=== PATIENT | male | born 1940 | race Caucasian/White ===

== ENCOUNTER 2024-10-17 13:29 | Inpatient (IN) | payer MEDICARE, SELFPAY ==
[2024-10-17] VITALS (10 sets, daily range): BP systolic 119–136; BP diastolic 63–75; BMI 34.0; BMI 32.9
[2024-10-17 11:02] LABS: % Basophils 0.3 % (0-2); % Eosinophils 0.7 % (0-6); % Immature Granulocytes 0.5 % (0-0.5); % Lymphocytes 19.7 % (20.5-51.1); % Monocytes 9.2 % (1.7-9.3); % Neutrophils 69.6 % (42.2-75.2); Absolute Eosinophils 0.1 10^3/uL (0-0.7); Absolute Immature Granulocytes 0.1 10^3/uL (0-0.05); Absolute Lymphocytes 2.1 10^3/uL (1.2-3.4); Absolute Neutrophils 7.4 10^3/uL (1.4-6.5); Hematocrit 37.6 % (39.0-52.0); Hemoglobin 12.7 g/dL (13.0-18.0); Mean Corp Hgb Conc. 33.8 g/dL (33.0-37.0); Mean Corpuscular Volume 88.7 fL (80.0-94.0); Mean Platelet Volume 9.2 fL (7.4-10.4); Nucleated Red Blood Cells % 0 % (-); Platelet Count 157 10^3/uL (130-400); Red Blood Cell Count 4.24 10^6/uL (4.70-6.10); Red Cell Dist. Width 13.6 % (11.5-14.5); White Blood Cell Count 10.6 10^3/uL (4.8-10.8)
[2024-10-17 11:13] LABS: ALT (SGPT) 22 U/L (0-50); AST (SGOT) 25 U/L (17-59); Alkaline Phosphatase 101 U/L (38-126); Blood Urea Nitrogen 26 mg/dl (9-20); Calcium 8.8 mg/dl (8.4-10.2); Carbon Dioxide 24 mmol/L (22-30); Chloride 105 mmol/L (98-107); Estimated Creatinine Clearance 34 ml/min; Glucose 174 mg/dl (70-99); Potassium 4.3 mmol/L (3.5-5.1); Sodium 139 mmol/L (135-145); Total Bilirubin 1.7 mg/dl (0.2-1.3); Total Protein 6.2 g/dl (6.3-8.2); eGFR 37.12
[2024-10-17 11:31] LABS: INR 1.05
[2024-10-17 11:34] LABS: Troponin I 0.042 ng/ml
--- NOTE | 2024-10-17 11:57 | ED.GENMED ---
History of Present Illness
General
Chief Complaint: Chest Pain
Source: patient and ambulance crew (Medics add that they gave a dose of nitroglycerin.)
Time Seen by Provider: 10/17/24 10:45
History of Present Illness
History of Present Illness:
84-year-old male who presents after he developed chest discomfort and shortness of breath while walking angina. Patient states over the last week has been short of breath when he walks. He reports a tightness across his upper chest that is now
resolved after getting nitroglycerin by EMS. He has no cardiac history. EMS did find him with some EKG changes. Symptoms again have resolved and he feels much better. He admits he also has been dealing with hematuria through his urologist. No
palpitations. No leg swelling. Patient was given aspirin by EMS
Past History
Past History
ED Past Medical History: HTN and Hypercholesterolemia
Phy Exam
Physical Exam
Physical Exam:
CONSTITUTIONAL Patient alert and oriented to person, place and time. Well-appearing. Vital signs reviewed.
HEAD atraumatic, normocephalic.
EYES eyelids normal to inspection, Extraocular muscles intact, Conjunctiva normal, Sclera normal.
NECK normal range of motion, Trachea midline, no jugular venous distention.
RESPIRATORY CHEST No respiratory distress noted, Chest expansion equal, Bilateral breath sounds clear.
CARDIOVASCULAR regular rate and rhythm, Heart sounds normal.
ABDOMEN abdomen nontender, Bowel sounds normal. No distention.
BACK normal inspection, no obvious deformities
UPPER EXTREMITY range of motion normal, Motor strength normal, no cyanosis, no edema.
LOWER EXTREMITY range of motion normal, Motor strength normal, no cyanosis, no edema.
NEURO Speech normal, No focal motor deficits, Hampton coma scale 15, Memory normal, Cranial Nerves intact to screening exam.
SKIN skin warm, dry, and normal in color.
Scores
Heart Score for Chest Pain Patients
STEMI patient?: No
History: Highly Suspicious
ECG: Significant ST-Depression
Age: >/= 65 years
Risk Factors: 1 or 2 Risk Factors
Troponin: >1 - <3 x Normal Limit
Heart Score for Chest Pain Patients: 8
Heart Score Risk: 72.7 % MACE over next 6 weeks
Course
Orders/Labs/Results
Orders:
Orders
10/17/24 10:45
Electrocardiogram (*1) Urgent
Reason for Study: Chest Pain
EKG- Treatment ONCE
10/17/24 10:50
Complete Blood Count/With Diff Urgent
Comprehensive Metabolic Panel Urgent
NT-proBNP Urgent
Comment: ADDON
PTT Urgent
Prothrombin Time Urgent
Troponin I Urgent
10/17/24 10:56
CR Chest - 2 Views Urgent
Comment:
Reason For Exam: sob, cp
10/17/24 10:59
Add On- LAB Urgent
Tests Added?: bnp
10/17/24 11:51
Heparin 4,000 units IV NOW STA
10/17/24 11:[address] Non Medication Order As Directed
Physician Order: PTT 6 hours after initial start of Heparin infusion
Above order entered?: Yes
10/17/24 12:00
Heparin 41771 Units/250 ml 25,000 units in 250 ml IV PER PROTOCOL
Weight to be used for heparin protocol in kilograms (kg):: 95.5
Protocol:: Cardiac Tx/Acute Coronary
PTT Goal Range to be used:: PTT 73 to 111 seconds
Order type:: Initial
INITIAL Infusion Dose (UNITS/KG/hr) & then follow protocol:: 12 units/kg/hr
Infusion Dose in UNITS/hr & then follow protocol (UNITS/hr):: 1,000
INFUSION RATE in mL/hr & then follow protocol (mL/hr):: 10
PTT less than or equal to 64 seconds:: Increase rate by 200 units/hr (+ 2 mL/hr)
PTT 64.1 to 72.9 seconds:: Increase rate by 100 units/hr (+ 1 mL/hr)
PTT 73 to 111 seconds:: Target Range. No change in rate.
PTT 111.1 to 130.9 seconds:: Decrease rate by 100 units/hr (- 1 mL/hr)
PTT 131 to 199.9 seconds:: HOLD for 1 hr. Then decrease rate by 200 units/hr (- 2 mL/hr)
PTT greater than or equal to 200 seconds:: HOLD for 2 hrs & Notify Provider. Then decrease by 200 units/hr (-
2 mL/hr)
Lab follow-up:: Each change, PTT q6h until 2 consecutive are therapeutic. Then PTT
daily.
Nitroglycerin Ointment [Nitro-Bid] 1 inch TOPICAL NOW STA
10/17/24 13:01
Admit/Transfer Patient As Directed
Co-Sign Provider:
Level of Care: Inpatient admission
Assign to:: Telemetry
Physician / Group: bhanu han
Diagnosis: STEMI
Reason for Telemetry: Chest Pain syndromes
Date to Stop Telemetry: 10/19/24
Time to Stop Telemetry: 11:00
Reason for Hospitalization: NSTEMI
Expected length of stay greater than two midnights?: Yes
ELOS- Estimated Length of Stay in days: 3
I certify the patient meets the requirements for IP care: Yes
PRN Pain Medication Management As Directed
May give lesser potent ordered pain med per pt: Yes
preference::
Protocol:: Medication orders for pain may be administered in a
manner that supports deferring to patient preference
when the pt is:
- Requesting an ordered lesser potent pain medication.
Least to most potent pain medications are defined
as: acetaminophen < NSAID < tramadol < opioids
(morphine, oxycodone, hydromorphone).
- Requesting a lesser dose of the same medication IF
ORDERED.
- Requesting a less intrusive route of administration
if both routes are prescribed by the provider (PO <
IV).
10/17/24 13:03
Code Status As Directed
Resuscitation Status: Full Code
10/17/24 13:11
CARDIOLOGY CONSULT Routine
Consulting Provider: Kimo Martinez
Was physician already notified: Yes
10/17/24 18:25
PTT Urgent
10/19/24 11:00
DC Protocol for Telemetry ONCE
Abnormal Lab Results
10/17/24
10:50
RBC 4.24 L 10^6/uL
(4.70-6.10)
Hgb 12.7 L g/dL
(13.0-18.0)
Hct 37.6 L %
(39.0-52.0)
Abs Immat Gran (auto) 0.1 H 10^3/uL
(0-0.05)
Absolute Neuts (auto) 7.4 H 10^3/uL
(1.4-6.5)
Absolute Monos (auto) 1.0 H 10^3/uL
(0.1-0.6)
Lymphocytes % 19.7 L %
(20.5-51.1)
BUN 26 H mg/dl
(9-20)
Creatinine 1.8 H mg/dL
(0.7-1.3)
Glucose 174 H mg/dl
(70-99)
Total Bilirubin 1.7 H mg/dl
(0.2-1.3)
Troponin I 0.042 H* ng/ml
Total Protein 6.2 L g/dl
(6.3-8.2)
10/17/24 10:50
10/17/24 10:50
Vital Signs
Initial and Last Documented VS:
Initial Vital Signs
BP
124/68
10/17/24 10:45
Last Documented Vital Signs
Temp Pulse Resp BP Pulse Ox
97.9 F 89 23 135/67 93
10/17/24 10:47 10/17/24 14:30 10/17/24 14:30 10/17/24 14:00 10/17/24 14:30
MDM/Problems Addressed
Differential Diagnosis Includes:
Unstable angina, congestive heart failure, pericardial effusion, pneumonia, pneumothorax
MDM/Problems Addressed:
Unstable angina, acute hypoxia
*Radiology
Radiology exam reviewed: all reviewed NAD by ED Provider
*Pulse Oximetry
Patient hypoxic: no
*EKG
Interpreted by ED Provider?: Yes
Interpretation: abnormal
Rate: normal
Rhythm: sinus
Ischemia: ST depression (Infero-lateral leads)
*Knit Goods Cutter Hand Interpretation
Rate: normal
Interpretation: normal
Rhythm: sinus
*Critical Care Note
Total Time (30-74mins, 75-104mins- exclusive of procedures): 30 minutes
Data Reviewed
Source: patient and ambulance crew
Further Testing Considered But Not Given:
Consider CTA but low suspicion for pulmonary embolism
Patient Management
Discussion with other providers: Hospitalist and Auto Travel Counselor (Case discussed with cardiology,)
Escalation/DeEscalation of care consider admission/obs:
84-year-old male presents with chest tightness and shortness of breath walking in the supermarket. Has had shortness of breath with exertion this week and in fact admits that when he walked to get blood work recently he had to stop because of
shortness of breath. EKG with subtle ST depression and mild bump in Trope. Treat with heparin but will need to be cautious in light of recent hematuria. Case discussed with cardiology. Admit
ED Attending Note
-
Portions of this chart may have been created with voice recognition software.� Occasional wrong word or��sound alike� substitutions may have occurred due to the inherent limitations of voice recognition software.
Discharge Plan
Departure
Patient Disposition: Admit
Date of Disposition: 10/17/24
Time of Disposition: 12:37
Admit to: Telemetry
Presentation/result/management discussed w/ accepting MD/DO: Hospitalist
Discharge Problem:
Unstable angina, Acute dyspnea
Interventions
Interventions:
*Risk Screen - Suicide Last Done: 10/17/24 10:49
*General Assessment Last Done: 10/17/24 10:49
*Neglect/Abuse Screening Last Done: 10/17/24 10:49
*ED COVID-19 Vaccine History Last Done: 10/17/24 10:49
ED- Cardiac Assessment Last Done: 10/17/24 11:15
[2024-10-17] MEDS: HEPARIN 4000 UNITS IV (12:25)
[2024-10-17] MEDS: HEPARIN 25000 UNITS/250 ML IV (12:27)
[2024-10-17] MEDS: NITRO-BID 1 INCH TOPICAL (12:30)
--- NOTE | 2024-10-17 12:40 | HPS.HSE ---
Family Physician
-
Family Physician: Ingrid Chan, DO
Chief Complaint
-
chest pain
sob
History of Present Illness
84-year-old male with past medical history of hypertension presented to us with midsternal chest pain associate with short of breath for past few days. Short of breath with exertion. Patient stated progressively worsening fatigue, weak and short
of breath. Today he was noted to be fatigue and short of breath. He started having midsternal chest pain. He was very lightheaded and dizzy. Denied headache or syncope. Denied fever, chills, runny nose, congestion, cough. Patient denied
abdominal pain, nausea, vomiting, diarrhea. Patient denied dysuria hematuria.
On arrival noted to have elevated Trop, EKG with ST depression. Initiated on heparin drip. Received a dose of nitro in ER. Admitting for further management
Medical History
Past Medical History
Past Medical History: Reports Other
Additional Past Medical History:
Hypertension
BPH
Past Surgical History: Reports None
Social History
Tobacco: Former Smoker
Alcohol: Occasional
Drug: None
Personal:
Living: With Family
Family History
Family History: Not pertinent
Allergies / Home Medications
Allergies reflects when Allergies were last updated in [employer].
Home Medications with original date entered in [employer]
Allergy/Medication List:
Allergies
Allergy/AdvReac Type Severity Reaction Status Date / Time
ciprofloxacin Allergy Rash Verified 10/17/24 10:59
fluticasone Allergy Rash Verified 10/17/24 10:59
ibuprofen [From Advil] Allergy Swelling Verified 10/17/24 10:59
ofloxacin [From Floxin] Allergy Swelling Verified 10/17/24 10:59
Sulfa (Sulfonamide Allergy Rash Verified 10/17/24 10:59
Antibiotics)
sulfamethoxazole Allergy Rash Verified 10/17/24 10:59
[From Bactrim]
trimethoprim [From Bactrim] Allergy Rash Verified 10/17/24 10:59
Home Medications
atorvastatin 20 mg tablet (Lipitor) 20 mg PO DAILY 10/17/24
cholecalciferol (vitamin D3) 25 mcg (1,000 unit) tablet (Vitamin D3) 25 mcg PO DAILY 10/17/24
dutasteride 0.5 mg capsule 0.5 mg PO DAILY 10/17/24
losartan 25 mg tablet 25 mg PO DAILY 10/17/24
nifedipine 30 mg tablet,extended release 24 hr 30 mg PO DAILY 10/17/24
nitrofurantoin monohydrate/macrocrystals 100 mg capsule 100 mg PO BID 10/17/24
terazosin 5 mg capsule 5 mg PO DAILY 10/17/24
therapeutic multivitamin 1 tab PO DAILY 10/17/24
vitamin E 268 mg (400 unit) capsule 268 mg PO DAILY 10/17/24
zinc sulfate 50 mg zinc (220 mg) tablet 50 mg PO DAILY 10/17/24
Review of Systems
-
Constitutional: Reports Fatigue
EENT: Reports No Symptoms
Respiratory: Reports Trouble Breathing
Cardiac: Reports Chest Pain
Abdomen/GI: Reports No Symptoms
: Reports No Symptoms
Musculoskeletal: Reports No Symptoms
Skin: Reports No Symptoms
Neurological: Reports Dizzy and Weakness
Endocrine: Reports No Symptoms
Hematologic/Lymphatic: Reports No Symptoms
Psych: Reports No Symptoms
Physical Exam
Vital Signs
Vital Signs
Pulse Resp BP Pulse Ox
95 25 128/75 91
10/17/24 12:30 10/17/24 12:00 10/17/24 12:30 10/17/24 12:00
Physical Exam
General: Well Developed, Well Nourished and No Apparent Distress
HEENT: NormoCephalic, Moist mucous membranes and Atraumatic
Respiratory: Clear
Cardiac: S1/S2 and Regular Rhythm; No Murmur or Rub
GI: Soft, Non Tender, Non Distended and Normal Bowel Sounds; No Organomegaly
Rectal: Deferred by Provider
Musculoskeletal: No Clubbing, No Cyanosis and No Edema
Skin: No Rash
Neuro: AO x 3 and Nonfocal/grossly intact
Psych: Calm
Laboratory Results
-
10/17/24 10:50
10/17/24 10:50
Laboratory Results
PT 14.0 Sec (11.4-14.6) 10/17/24 10:50
INR 1.05 10/17/24 10:50
APTT 29.0 Sec (23.4-35.0) 10/17/24 10:50
Total Bilirubin 1.7 mg/dl (0.2-1.3) H 10/17/24 10:50
AST 25 U/L (17-59) 10/17/24 10:50
ALT 22 U/L (0-50) 10/17/24 10:50
Alkaline Phosphatase 101 U/L (38-126) 10/17/24 10:50
Troponin I 0.042 ng/ml H* 10/17/24 10:50
Data Reviewed
-
Diagnostic Radiology: Report Reviewed by me
Lab Data: Labs Reviewed by me
Impression/Plan
-
# Short of breath associated chest tightness rule out STEMI
-EKG with ST depression inferior lateral
-Troponin 0.042
-IV heparin
-Chest x-ray with low lung volumes, heart at least top normal in size
-Cardiology consulted
# Acute kidney injury
-Creatinine 1.8
-ctm
# Hyperlipidemia
-Statin continued
#BPH
-dutasteride continued
-terazosin continued
#Essential hypertension
-Hold losartan due to SHIRA
-Nifedipine continued
# Recent hematuria
#UTI prophylaxis
-Nitrofurantoin held
# DVT prophylaxis
-Heparin IV
# CODE STATUS
-Full code
[2024-10-17 12:55] LABS: NT-proBNP 1410 pg/ml
--- NOTE | 2024-10-17 13:12 | W.PN.UPDATE ---
Update Note
Progress Note Update
This note serves as an addendum to the H&P by boiler repairman CARLOS [employer] GRECO
HPI
84M HX HTN, HLD , recent UTI, HX BPH with hematuria seen at ER
- eval for chest discomfort and shortness of breath while walking angina
- states over the last week has been short of breath when he walks.
- reports a tightness across his upper chest that is now resolved after getting nitroglycerin by EMS.
- No cardiac history. EMS did find him with some EKG changes.
- Symptoms again have resolved and he feels much better.
- reports has s been dealing with hematuria through his urologist.
- No palpitations. No leg swelling.
Reviewed VS: Mild tachypnea , POx 85 on RA- ---> POx 91 on 2L
PE
Gen: Not toxic , obese
HEENT: abietic
Neck: supple . no bruit
Lungs: CTA
Cor:RRR S1 S2 No mm
Abdomen: benign
PIANO PROFESSOR: AAO3, NFND
MS: no edema
Psych: appropriate
Laboratory Tests
10/17/24
10:50
Hgb 12.7 L
Creatinine 1.8 H
eGFR 37.12
Glucose 174 H
Troponin I 0.042 H*
Lhq-M-Zhhtmzlwelc Pept 1410
CXR:
Low lung volumes.
Heart at least top normal in size.
EKG
SINUS TACHYCARDIA
CANNOT RULE OUT INFERIOR INFARCT , AGE UNDETERMINED
ABNORMAL ECG
NO PREVIOUS ECGS AVAILABLE
NO PRIOR hospitalist admission:
ASSESSMENT & PLAN
Suspect ACS/NSTEMI
- currently CP free
- agree with heparin gtt
- hold Vit E for now
- first dose ASA loading was given by medics , then cont. daily baby ASA
- Observe worsening hematuria
- DCA card seen at ER and consulted
Renal insufficiency - uncertain chronicity
- trend Cr
- Hold Losartan for now
Benign HTN
- hold Lisinopril
- cont. Nifedipine XL
HX BPH wit hematuria
- cont Dutasteride
DVT Px: heparin gtt
Code: full
IP TLM
--- NOTE | 2024-10-17 13:28 | CON.CAR ---
Consultation
Consultation Request
Date/Time Consultation Requested: 10/17/24
Date/Time Consultation Performed: 10/17/24
Requesting Provider: Jose
Performing Provider: Michelle
Reason for Consultation: Chest pain
Medical History
-
Chief Complaint: SOB, CP
History of Present Illness:
84-year-old man past medical history of hypertension hyperlipidemia who was at the grocery store earlier today when he developed dyspnea on exertion and mild chest discomfort as well as lightheadedness and dizziness. EMS was called and he received
aspirin and sublingual nitroglycerin prior to arrival at [facility] emergency department. Reports that chest discomfort resolved after administration of nitroglycerin. He was found to be hypoxic and started on supplemental O2.
At the time of my exam he was not experiencing any chest discomfort. No shortness of breath at rest.
Tells me he has been having dyspnea on exertion over at least the past week, but no PND/orthopnea and no significant lower extremity edema.
Reports that he has no history of cardiovascular disease to his knowledge
At arrival to [facility] emergency department twelve-lead ECG with nonspecific ST changes. Troponin was found to be mildly elevated 0.042. proBNP 1400. Chest x-ray within normal limits.
Started on heparin drip in the ER with concern for ACS.
Some of the history provided by family who is at bedside
PMHx/PSHx:
HTN
HLD
BPH
Hematuria
Sciatica
Past Medical History
Past Medical History: Other (as above)
Past Surgical History: Other (as above)
Social History
Tobacco: Former Smoker
Living: With Family
Family History
Family History: Reviewed & Not Pertinent
Allergies / Home Medications
Allergy/AdvReac Type Severity Reaction Status Date / Time
ciprofloxacin Allergy Rash Verified 10/17/24 10:59
fluticasone Allergy Rash Verified 10/17/24 10:59
ibuprofen [From Advil] Allergy Swelling Verified 10/17/24 10:59
ofloxacin [From Floxin] Allergy Swelling Verified 10/17/24 10:59
Sulfa (Sulfonamide Allergy Rash Verified 10/17/24 10:59
Antibiotics)
sulfamethoxazole Allergy Rash Verified 10/17/24 10:59
[From Bactrim]
trimethoprim [From Bactrim] Allergy Rash Verified 10/17/24 10:59
�Medication �Instructions �Recorded �Confirmed �Type
atorvastatin 20 mg tablet (Lipitor) 20 mg PO DAILY 10/17/24 10/17/24 History
cholecalciferol (vitamin D3) 25 25 mcg PO DAILY 10/17/24 10/17/24 History
mcg (1,000 unit) tablet (Vitamin
D3)
dutasteride 0.5 mg capsule 0.5 mg PO DAILY 10/17/24 10/17/24 History
losartan 25 mg tablet 25 mg PO DAILY 10/17/24 10/17/24 History
nifedipine 30 mg tablet,extended 30 mg PO DAILY 10/17/24 10/17/24 History
release 24 hr
nitrofurantoin 100 mg PO BID 10/17/24 10/17/24 History
monohydrate/macrocrystals 100 mg
capsule
terazosin 5 mg capsule 5 mg PO DAILY 10/17/24 10/17/24 History
therapeutic multivitamin 1 tab PO DAILY 10/17/24 10/17/24 History
vitamin E 268 mg (400 unit) capsule 268 mg PO DAILY 10/17/24 10/17/24 History
zinc sulfate 50 mg zinc (220 mg) 50 mg PO DAILY 10/17/24 10/17/24 History
tablet
Review of Systems
-
History Source: Patient
All other systems: Negative unless noted
Physical Exam
Vital Signs
Temp Pulse Resp BP Pulse Ox
97.9 F 93 24 123/75 93
10/17/24 10:47 10/17/24 13:00 10/17/24 13:00 10/17/24 13:00 10/17/24 13:00
Lab Results
10/17/24 10:50
10/17/24 10:50
Troponin I 0.042 ng/ml H* 10/17/24 10:50
Ruq-A-Kpxssklfmii Pept 1410 pg/ml 10/17/24 10:50
Physical Exam
General: Well Developed
HEENT: Normocephalic
Respiratory: Clear
Cardiac: S1/S2 and Other (on 2L NL)
GI: Soft
Musculoskeletal: No Edema
Skin: Warm and Dry
Neuro: Awake and Alert
Psych: Calm
Impression / Plan
-
Template Clerk: None, initially seen by Michelle
Assessment:
NSTEMI
Chest pain
REDDY
Elevated troponin
HTN
HLD
BPH
hematuria
Plan:
-Presenting with chest discomfort which developed at the grocery store and was relieved by sublingual nitro found to have elevated troponin on arrival 0.[address] changes on EKG consistent with NSTEMI
-Currently resting comfortably in the ER and is chest pain-free
-For now medical management with aspirin 81 mg daily, high intensity statin, low-dose beta-jerson and heparin drip x 48 hours
-PRN SL nitro
-Trend troponin to peak
-Repeat ECG later today
-Check echo on Saturday
-If he remains stable tentative plan for left heart catheterization on Saturday
Discussed with patient and family who is at bedside
Data Reviewed
-
EKG: Tracing Personally Visualized and interpreted
Radiology: Image Personally Visualized and interpreted
Labs: Labs Reviewed by me
[2024-10-17 15:32] LABS: Urine Albumin 3+ (Neg - Trace); Urine Bilirubin Negative (Negative); Urine Character Bloody (Clear); Urine Color Red; Urine Glucose Negative (Negative); Urine Ketone Negative (Negative); Urine Leukocyte Negative (Negative); Urine Nitrite Negative (Negative); Urine Occult Blood 3+ (Negative); Urine Specific Gravity 1.015 (<1.030); Urine Urobilinogen Negative (Neg - 1+)
[2024-10-17 15:45] LABS: Urine Red Blood Cell >100 /HPF (0-2)
--- NOTE | 2024-10-17 18:00 | PTCARENOTE ---
Received patient from ED with Heparin drip running at 10ml/hr. Placed on tele #25 NSR with first degree heart block. Oriented to room and use of call roth. Denies pain/discomfort. Family at bedside. Call roth within reach.
--- NOTE | 2024-10-17 18:30 | PTCARENOTE ---
shortly after patient admitted to 336[facility]1 he used the bathroom and bloody urine was noted in the toilet bowl. Pt stated that this happens to him sometimes PMH Prostate surgery x2, denies pain/discomfort. Admitting doctor Dr Sandoval was made aware -
monitor for now. Information passed onto incoming shift.
[2024-10-17 20:43] LABS: APTT 40.8 Sec (23.4-35.0)
[2024-10-17 21:00] LABS: Troponin I 0.436 ng/ml
[2024-10-18 03:26] VITALS: BP 136/88
[2024-10-18 04:34] LABS: APTT 67.2 Sec (23.4-35.0)
[2024-10-18 06:00] VITALS: BMI 32.5
--- NOTE | 2024-10-18 07:09 | W.PN.HOSP.TC ---
Today's Communication/Plan
-
Continue Heparin Drip
Continue CBI
Diagnostic (no stents) cardiac cath is preferred to help address the source of this patient's hematuria -- I have made cardiology aware of this via [place] Text
Assessment / Plan
Assessment / Plan
Physical Exam
General: Not in acute distress
HEENT: Normocephalic
Respiratory: Clear to Auscultation Bilaterally
Cardiac: S1/S2 and Regular Rhythm
GI: Soft, Non Tender, Non Distended and Normal Bowel Sounds
Musculoskeletal: No Cyanosis and No Edema
Skin: Warm. Dry.
Neuro: AAO x 3 and Nonfocal/grossly intact
Psych: Calm
Assessment/Plan
#Presentation with Chest Pain and Shortness of breath -- relieved with nitroglycerin
#NSTEMI
-So far, no chest pain since after admission
-Continue Aspirin 81 mg daily, high intensity statin, low-dose beta-jerson and heparin drip x 48 hours
-Sublingual nitro as needed for chest discomfort
-Troponin peaked at 0.436
-IV heparin was started on admission but held as per urology given patient's chronic hematuria, but okay to restart as per urology today at 4 pm
-Best to do diagnostic cath so DAPT will not be needed and patient can go to OR for cysto/bx/fulguration/etc (regarding patient's hematuria; please see below)
-Chest x-ray with low lung volumes, heart at least top normal in size
-Cardiology consulted: echo and cardiac cath tomorrow
# Acute kidney injury
-Creatinine 1.8
-ctm
# Hyperlipidemia
-Statin continued
#Chronic Gross Hematuria for the past ~2 months
#BPH - on home Hytrin and Avodart
-[facility]
-Voiding bloody urine this admission, suspected to be from prostate
-Per urology, stat noncontrast CT performed (noncontrast due to cr- 1.5; no baseline)- showed massive BPH/ decompressed bladder with no obvious mass - left hydro and ureteral dilation all the way to
bladder (and this is likely secondary to BPH)
-3 way recinos catheter placed and irrigation started
-Continue CBI and observe for any bleeding while patient is on Heparin Drip
-Challenging situation, and if prostate is source will be even more challenging
-dutasteride continued
-terazosin continued
#Essential hypertension
-Hold losartan due to SHIRA
-Nifedipine continued
# Recent hematuria
#UTI prophylaxis
-Nitrofurantoin held
# DVT prophylaxis
-Heparin IV
# CODE STATUS
-Full code
This is a high-risk encounter with gross hematuria and needing Heparin Drip.
Anticipated Discharge: > 48 hours
Subjective/Interval History
-
Date of Service: October 18, 2024
Patient was seen and examined. He denied any chest pain or shortness of breath.
Objective Data
-
Labs:
Laboratory Results
10/17/24 10/18/24 10/18/24
20:14 03:53 06:00
WBC Pending
Hgb Pending
Hct Pending
Plt Count Pending
APTT 40.8 H 67.2 H
Sodium Pending
Potassium Pending
Chloride Pending
Carbon Dioxide Pending
BUN Pending
Creatinine Pending
Glucose Pending
Calcium Pending
10/18/24
10:00
WBC
Hgb
Hct
Plt Count
APTT Pending
Sodium
Potassium
Chloride
Carbon Dioxide
BUN
Creatinine
Glucose
Calcium
Vital Signs:
Vital Signs
Temp Pulse Resp BP Pulse Ox
97.8 F 83 18 136/88 96
10/18/24 03:26 10/18/24 03:26 10/18/24 03:26 10/18/24 03:26 10/18/24 03:26
I&O
10/17/24 10/18/24 10/19/24
06:59 06:59 06:59
Intake Total 480 / 480
Balance 480 / 480
[2024-10-18 08:09] LABS: Hematocrit 36.4 % (39.0-52.0); Hemoglobin 12.3 g/dL (13.0-18.0); Mean Corp Hgb Conc. 33.8 g/dL (33.0-37.0); Mean Corpuscular Hgb 30.1 pg (27.0-31.0); Mean Platelet Volume 9.3 fL (7.4-10.4); Platelet Count 173 10^3/uL (130-400); Red Blood Cell Count 4.09 10^6/uL (4.70-6.10); Red Cell Dist. Width 13.6 % (11.5-14.5); White Blood Cell Count 7.6 10^3/uL (4.8-10.8)
[2024-10-18 08:17] LABS: Troponin I 0.203 ng/ml
[2024-10-18 08:25] VITALS: BP 130/74
[2024-10-18 08:29] LABS: Blood Urea Nitrogen 31 mg/dl (9-20); Calcium 8.6 mg/dl (8.4-10.2); Carbon Dioxide 24 mmol/L (22-30); Chloride 108 mmol/L (98-107); Estimated Creatinine Clearance 40 ml/min; Glucose 122 mg/dl (70-99); HDL Cholesterol 35 mg/dl; LDL Cholesterol, Calculated 56 mg/dl; Potassium 4.6 mmol/L (3.5-5.1); Sodium 140 mmol/L (135-145); Total Cholesterol 109 mg/dl (50-199); Triglyceride 93 mg/dl (10-149); Very Low Density Lipoprotein 18 mg/dl (0-30); eGFR 46.19
[2024-10-18] MEDS: LIPITOR 40 MG PO (09:05)
[2024-10-18] MEDS: TOPROL XL 25 MG PO (09:05)
[2024-10-18] MEDS: PROSCAR 5 MG PO (09:05)
[2024-10-18] MEDS: LOW STRENGTH ASPIRIN 81 MG PO (09:05)
[2024-10-18 10:00] LABS: Glycohemoglobin (HgbA1c) 5.8 % (4.0-5.6)
--- NOTE | 2024-10-18 10:20 | W.PN.CARDCBS ---
Today's Communication / Plan
-
Tentative plan for left heart cath tomorrow
Impression / Plan
-
Nuclear Radiation Engineer: None, initially seen by Michelle
Assessment:
NSTEMI
Chest pain
REDDY
Elevated troponin
HTN
HLD
BPH
hematuria
Plan:
-Presenting with chest discomfort which developed at the grocery store and was relieved by sublingual nitro found to have elevated troponin which peaked at 0.[address] changes on EKG consistent with NSTEMI
-No recurrence of his chest discomfort since arrival
-For now medical management with aspirin 81 mg daily, high intensity statin, low-dose beta-jerson and heparin drip x 48 hours
-PRN SL nitro
-Check echo on Saturday
-Tentative plan for left heart catheterization on Saturday
-Appreciate urology workup regarding ongoing hematuria which has been present over the course of many months
Discussed with hospitalist and urology
Progress Note - Nuclear Radiation Engineer
Subjective
Date of Service: October 18, 2024
No acute overnight events. Patient is resting comfortably in bed. No recurrence of his chest discomfort. Tells me breathing is comfortable. No significant edema. Still with hematuria, reports urine is very dark, but no worse since admission.
Objective
Labs:
10/18/24 07:37
10/18/24 07:37
Labs
Hgb 12.3 g/dL (13.0-18.0) L 10/18/24 07:37
Hct 36.4 % (39.0-52.0) L 10/18/24 07:37
Plt Count 173 10^3/uL (130-400) 10/18/24 07:37
PT 14.0 Sec (11.4-14.6) 10/17/24 10:50
INR 1.05 10/17/24 10:50
APTT 67.2 Sec (23.4-35.0) H 10/18/24 03:53
Sodium 140 mmol/L (135-145) 10/18/24 07:37
Potassium 4.6 mmol/L (3.5-5.1) 10/18/24 07:37
BUN 31 mg/dl (9-20) H 10/18/24 07:37
Creatinine 1.5 mg/dL (0.7-1.3) H 10/18/24 07:37
Glucose 122 mg/dl (70-99) H 10/18/24 07:37
Troponins
10/17/24 10/17/24 10/17/24
10:50 15:55 20:25
Troponin I 0.042 H* Cancelled 0.436 H*
10/18/24
07:37
Troponin I 0.203 H*
Vital Signs and I&O:
Vital Signs
Temp Pulse Resp BP Pulse Ox
97.7 F 83 19 130/74 96
10/18/24 08:25 10/18/24 09:05 10/18/24 08:25 10/18/24 09:05 10/18/24 08:25
Vital Signs
Temp Pulse Resp BP Pulse Ox
97.7 F 83 19 130/74 96
10/18/24 08:25 10/18/24 09:05 10/18/24 08:25 10/18/24 09:05 10/18/24 08:25
Intake & Output
10/16/24 10/17/24 10/18/24 10/19/24
06:59 06:59 06:59 06:59
Intake Total 480 / 480
Balance 480 / 480
Physical Exam
Physical Exam
Gen: NAD, AA
HEENT: NC/AT, sclera anicteric
Neck: No JVD
CV: RRR, NL s1/s2
Lungs: CTAB on 2L NC
Abd: S/ND
Ext: No LE edema
Skin: Warm, dry
Neuro: Non-focal
[2024-10-18] MEDS: STERILE WATER FOR INJECTION 10 ML IV (10:34)
[2024-10-18] MEDS: PROCARDIA XL (EXTENDED RELEASE) 30 MG PO (10:36)
[2024-10-18] MEDS: ROCEPHIN 1000 MG IV (10:36)
[2024-10-18] MEDS: HYTRIN 5 MG PO (10:37)
[2024-10-18 10:51] LABS: APTT 32.2 Sec (23.4-35.0)
--- NOTE | 2024-10-18 11:24 | CON.MD ---
Consultation - Medical
-
see dictated note
pt longstanding pt of dr scales
apparent long hx of bph- has had 2 prostate 'procedures'- pt unsure what they were or when last one was done
is maintained on hytrin and avodart
HAS HAD GROSS HEMATURIA SINCE AUGUST
saw dr pinto- no cysto performed- possible ct ordered by not scheduled until mid oct
told he had UTi and started on macrobid- although does not c/o of sig dysuria
now admitted with CP and SOB- NH
started on heparin drip and asa
voiding very bloody urine
hgb stable at least overnight
stat noncontrast ct performed due to cr- 1.5 (no baseline)- shows massive BPH/ decompressed bladder with no obvious mass- left hydro and ureteral dilation all the way to bladder- likely secondary to BPH
3 way recinos placed- 80cc of dark bloody urine drained- hand irrigated to basically clear- no sig clots- cbi started
have discussed with both cardiology and med team
heparin on hold until 4pm due to recent recinos manipulation- then will restart without bolus and contiue cbi and observe for bleeding
i suspect prostate source- but still unsure
hydro present- again believe due to bph- not an urgent issue at this time
VERY DIFFICULT SITUATION- will not really be able to bong bleeding- espc if prostate related- if pt is maintained on blood thinners
plan is for cath tomorrow- hope that this can be diagnostic with then temporary med management so that pt can then go to OR for cysto/bx/fulguration/etc
if intervention performed and pt committed to blood thinners- i think hematuria will be a sig problems
will contiue cbi-restart heparin and await cath results to finalize plan
[2024-10-18 11:55] VITALS: BP 142/71
--- NOTE | 2024-10-18 15:14 | CM ---
Addendum entered by Lubna Bailon 10/18/24 15:24:
IMM benefit explained; form signed @ 1520
Original Note:
Met with patient and his son at the bedside; initial assessment completed
Pharmacy verified: [facility] @ [address], [place]
Patient lives with his in a 2 story home; no steps to enter; 14 steps to 2nd floor bedroom and bath (stall shower); railing on stairs; powder room on 1st floor
PLOF: patient reported he was independent with ambulation, stairs, and ADLs; past 2 weeks experienced Shortness of Breath on stairs; Drives; Retired
No DME
No SNF or Home Health utilization history
will transport home
Plan: anticipate discharge to home when medically stable; CM will monitor for discharge needs
[2024-10-18 15:38] VITALS: BP 142/72
[2024-10-18] MEDS: HEPARIN 25000 UNITS/250 ML IV (17:00)
[2024-10-18 18:55] VITALS: BP 143/72
--- NOTE | 2024-10-18 19:36 | PTCARENOTE ---
Nephro order to hold heparin for recinos placement due to hematuria. heparin drip paused @900. This RN assisted Dr Iglesias with recinos placement and CBI setup. CBI draining punch colored output. Order to resume heparin drip @1600. Heparin drip resumed
at that time. CBI continuing to drain punch colored output. pt has had no complaints of bladder spasms or chest pain. IVU transfer ordered, awaiting open bed at this time.
--- NOTE | 2024-10-18 23:00 | PTCARENOTE ---
Report given to IVU RN, patient transferred in bed with all belongings - phone, hearing aids, and chargers. PTT drawn and sent prior to transport, remains on heparin gtt. CBI maintained. See worklist and MAR for documentation.
[2024-10-18 23:10] LABS: APTT 39.4 Sec (23.4-35.0)
[2024-10-18 23:20] VITALS: BP 159/79
[2024-10-19] VITALS (14 sets, daily range): BP systolic 91–158; BP diastolic 64–91; BMI 32.5
--- NOTE | 2024-10-19 00:36 | PTCARENOTE ---
Rec'd pt in bed from 3rd floor at approx 2300. Awake, alert no c/o cp or sob. Sinus on telemetry. Heparin gtt adjusted for ptt drawn right before transfer. Pt's heparin gtt currently going at 1200 units/hr. CBI also infusing via [address] way recinos. [place]
tinged urine noted with no clots. Pt denies spasms.
Pt aware of npo status after mn for cath in am.
[2024-10-19 05:47] LABS: APTT 47.8 Sec (23.4-35.0)
[2024-10-19 06:04] LABS: Hematocrit 38.2 % (39.0-52.0); Hemoglobin 12.5 g/dL (13.0-18.0); Mean Corp Hgb Conc. 32.7 g/dL (33.0-37.0); Mean Corpuscular Hgb 29.7 pg (27.0-31.0); Mean Corpuscular Volume 90.7 fL (80.0-94.0); Mean Platelet Volume 9.3 fL (7.4-10.4); Platelet Count 194 10^3/uL (130-400); Red Blood Cell Count 4.21 10^6/uL (4.70-6.10); Red Cell Dist. Width 13.6 % (11.5-14.5); White Blood Cell Count 9.9 10^3/uL (4.8-10.8)
[2024-10-19 06:05] LABS: Blood Urea Nitrogen 31 mg/dl (9-20); Calcium 8.8 mg/dl (8.4-10.2); Carbon Dioxide 29 mmol/L (22-30); Chloride 107 mmol/L (98-107); Estimated Creatinine Clearance 40 ml/min; Glucose 108 mg/dl (70-99); Magnesium 2.5 mg/dl (1.6-2.3); Potassium 4.9 mmol/L (3.5-5.1); Sodium 143 mmol/L (135-145); eGFR 46.19
--- NOTE | 2024-10-19 07:41 | W.PN.URO.CBU ---
Today's Communication / Plan
-
continue CBI
for cardiac cath today
Assessment / Plan
-
gross hematuria for 3 months
? UTI
sig BPH
left hydro- suspected due to BPH
CAD with DC- on heparin drip
pt still with sig hematuria with restart of heparin
continue cbi
continue rocepphin
for cardiac cath today to determine next step- hematuria will not bong without procedure and ability to hold anticoagulation
will discuss with caridac team
Diagnosis
-
Date of Service: October 19, 2024
-
Patient Diagnosis:
CAD
gross hematuria
BPH
left hydro
Subjective
-
pt resting comfortably
no further CP
urine harper on moderate drip CBI
cr stable at 1.5
Objective
-
Vital Signs
Temp Pulse Resp BP Pulse Ox
97.8 F 75 24 152/76 99
10/19/24 04:58 10/19/24 04:57 10/19/24 04:58 10/19/24 04:57 10/19/24 04:58
Intake and Output
10/18/24 10/19/24 10/20/24
06:59 06:59 06:59
Intake Total 480 / 480
Output Total 2064
Balance 480 / 480 -2064
Intake:
Oral fluids 480 / 480
Output:
True Urine Output from CBI 2064
Other:
Number of approximated MODERATE 2
amounts of urine
Laboratory Results
10/19/24 05:05
10/19/24 05:05
Review of Systems
-
Constitutional: Fatigue
Respiratory: No Symptoms
Cardiac: No Symptoms
Abdomen/GI: No Symptoms
: Other (occ bladder spasms)
Physical Exam
-
General -no acute distress
Abdomen - soft, non-tender
Genitalia - 3 way recinos- urine harper
[2024-10-19] MEDS: HYTRIN 5 MG PO (09:51)
[2024-10-19] MEDS: PROCARDIA XL (EXTENDED RELEASE) 30 MG PO (09:51)
[2024-10-19] MEDS: TOPROL XL 25 MG PO (09:52)
[2024-10-19] MEDS: LIPITOR 40 MG PO (09:52)
[2024-10-19] MEDS: PROSCAR 5 MG PO (09:52)
[2024-10-19] MEDS: LOW STRENGTH ASPIRIN 81 MG PO (09:52)
[2024-10-19] MEDS: ROCEPHIN 1000 MG IV (09:54)
[2024-10-19] MEDS: STERILE WATER FOR INJECTION 10 ML IV (09:55)
--- NOTE | 2024-10-19 10:15 | CM ---
Reviewed chart. Mr. Vail was transferred to IVU. Met with MrRadha and Mrs. Mauro to review discharge plans. He states prior to admission he resides withh is spouse and son in two story home with two steps to enter. He states he has a full flight of
steps to get to bedroom/full bathroom. He states he has a powder room on the first floor. He states prior to admission he was independent with ambulation and adls. He states he has a prescription plan and uses [facility]. He states he has never
needed [facility]. Medical work-up in progress. The discharge plan is to return home with his spouse and son when medically stable.
--- NOTE | 2024-10-19 10:40 | W.PN.CARDCBS ---
Today's Communication / Plan
-
Possible diagnostic cath today
Impression / Plan
-
PCP: Ingrid Chan affiliated with [facility]
Auto Servicer: None, initially seen by Michelle
Assessment:
NSTEMI, peak Troponin 0.436
Chest pain
REDDY
HTN
HLD
BPH
Persistent gross hematuria
Echo 10/19/2024: EF 55 to 60%, normal RV size and function, mild peak/mean 23/11 mmHg, trace aortic regurgitation, no pericardial effusion
Plan:
-Talked with patient and in the room on 10/19/2024. Reviewed peak troponin level of 0.436 that has since trended down. Patient is pain-free on heparin gtt
-Patient was started on heparin drip 10/17/2024 at approximately 1230 and so we will DC heparin drip on 10/19/2024 at 1230
-Patient is new to aspirin 81 mg daily and this is being continued
-Patient is new to Toprol XL 25 mg daily, he is tolerating all doses thus far
-Outpatient dose of nifedipine ER 30 mg daily has been continued
-Outpatient dose of losartan 25 mg daily is on hold due to elevated Cre
-Patient with CP on admission that was improved with NTG SL followed by troponin peak of 0.436 and nonspecific ECG changes. Echo as noted above without WMA.
-Talked with patient and about cardiology workup which could include stress test versus cardiac catheterization. We discussed the risk of DAPT in the setting of ongoing gross hematuria and that cardiac cath if performed might be diagnostic
only. We also discussed the plan for workup of his chronic gross hematuria which might include a cystoscopy on Saturday.
-Patient is chest pain-free at present
Progress Note - Auto Servicer
Subjective
Date of Service: October 19, 2024
Denies chest pain
Objective
Labs:
10/19/24 05:05
10/19/24 05:05
Labs
Hgb 12.5 g/dL (13.0-18.0) L 10/19/24 05:05
Hct 38.2 % (39.0-52.0) L 10/19/24 05:05
Plt Count 194 10^3/uL (130-400) 10/19/24 05:05
PT 14.0 Sec (11.4-14.6) 10/17/24 10:50
INR 1.05 10/17/24 10:50
APTT 47.8 Sec (23.4-35.0) H 10/19/24 05:05
Sodium 143 mmol/L (135-145) 10/19/24 05:05
Potassium 4.9 mmol/L (3.5-5.1) 10/19/24 05:05
BUN 31 mg/dl (9-20) H 10/19/24 05:05
Creatinine 1.5 mg/dL (0.7-1.3) H 10/19/24 05:05
Glucose 108 mg/dl (70-99) H 10/19/24 05:05
Troponins
10/17/24 10/17/24 10/17/24
10:50 15:55 20:25
Troponin I 0.042 H* Cancelled 0.436 H*
10/18/24 10/18/24 10/18/24
07:37 13:15 19:15
Troponin I 0.203 H* Cancelled Cancelled
Vital Signs and I&O:
Vital Signs
Temp Pulse Resp BP Pulse Ox
97.8 F 69 24 158/91 99
10/19/24 04:58 10/19/24 10:15 10/19/24 04:58 10/19/24 09:51 10/19/24 04:58
Vital Signs
Temp Pulse Resp BP Pulse Ox
97.8 F 69 24 158/91 99
10/19/24 04:58 10/19/24 10:15 10/19/24 04:58 10/19/24 09:51 10/19/24 04:58
Intake & Output
10/17/24 10/18/24 10/19/24 10/20/24
06:59 06:59 06:59 06:59
Intake Total 480 / 480
Output Total 2064
Balance 480 / 480 -2064
Physical Exam
Physical Exam
Gen: AAO x3
HEENT: MMM
Lungs: RA, no wheeze
Abd: ND
Ext: No LE edema
Skin: Warm, dry
Neuro: Non-focal
: CBI running, fruit punch colored urine
[2024-10-19] MEDS: HEPARIN 25000 UNITS/250 ML IV (11:22)
--- NOTE | 2024-10-19 11:47 | ITS.CL.CATH ---
Automated Equipment Engineer Technician - Catheterization
Cardiac Catheterization
Procedure Report:
LEFT HEART CATHETERIZATION
Date of Procedure: October 19, 2024
Referring: Kimo Martinez
PROCEDURES:
1. Left heart catheterization, coronary angiogram.
2. Ultrasound-guided access
3. Functional physiologic testing with IFR of proximal to mid LAD
INDICATION: Silas is a 84-year-old gentleman with past medical history of hypertension, hyperlipidemia, BPH, 2 to 3-month history of gross hematuria who presents after an episode of chest discomfort and 1 to 2-week long history of progressive dyspnea
on exertion found to have mild troponin elevation with peak troponin I of 0.453 with concern for possible type I NSTEMI and is now being referred for left heart catheterization to rule out obstructive CAD.
ACCESS: Right radial artery, 6 Turkmen sheath, under ultrasound guidance
HEMODYNAMICS : (mmHg)
AO (s/d) : 110/63
LV (s/d) : 115/8
LVEDP : 14
CORONARY FINDINGS
DOMINANCE: Right
LEFT MAIN: The left main artery is a large-caliber vessel which gives rise to the left anterior descending artery and the left circumflex artery. There is minimal luminal irregularities.
LEFT ANTERIOR DESCENDING: The left anterior descending artery is a medium to large caliber vessel which gives rise to 1 major diagonal branch. There is diffuse 50 to 60% stenosis in the proximal LAD spanning across the takeoff of the diagonal
branch which was borderline by IFR at 0.89. Otherwise there is minimal luminal irregularities.
CIRCUMFLEX: The left circumflex artery is a medium caliber vessel which gives rise to 1 major branching obtuse marginal branch. There is minimal luminal irregularities.
RIGHT CORONARY ARTERY: Right coronary artery is a medium to large caliber, dominant vessel which gives rise to the right posterior descending artery and the right posterolateral system. Mid RCA has a area of focal 60 to 70% stenosis surrounded by a
small aneurysmal area which makes it difficult to rule out a more significant lesion. Otherwise there is mild diffuse atherosclerotic plaque. MOHSEN-3 flow into the distal vessel.
HEMODYNAMIC ASSESSMENT OF THE PROXIMAL TO MID LAD WITH A VOLCANO OMNI WIRE: The origin of the left coronary artery was cannulated with a 6 Fr JL 4 guide catheter. Intravenous heparin was administered and the ACT was followed during the procedure.
Two hundred micrograms of intracoronary nitroglycerin was given through the guide catheter. A Tigrett Omni wire was advanced to the guide catheter tip and normalized just outside guide catheter.. The Omni wire was then carefully manipulated across
the stenosis in the proximal to mid LAD with the iFR in the indeterminate zone at 0.89, 0.90, 0.90. The Omni wire was then pulled back to the guide catheter where the Pd/Pa measured 1.0 confirming no baseline drift in pressure readings
SEDATION: 45 minutes of procedural sedation was utilized. An independent medical data analyst was present to assist with and help manage the patient's level of consciousness and physiologic status.
RADIATION SUMMARY: Fluoro Time (min): 9.3, Dose (mGy): 721.01, DAP (Gy.cm2) : 53.70
Closure Device: Vascular band over right radial artery, 10 cc of air
CONCLUSIONS
1. Noncritical but obstructive CAD in the proximal to mid LAD with borderline positive IFR.
2. At least moderate 60 to 70% stenosis in the mid RCA.
3. High normal LVEDP at 14 mmHg.
RECOMMENDATIONS
1. Wean radial band per protocol.
2. Lengthy discussion was had with urology in the setting of ongoing hematuria that was exacerbated with IV heparin for his presenting NSTEMI. Given noncritical, not left main disease, we agreed to pursue aggressive medical therapy with daily baby
aspirin, high intensity statin, antianginals and proceed with planned urologic workup for ongoing hematuria accepting risk of the procedure with ongoing discussions depending on results of diagnositcs.
3. Full echocardiogram to assess biventricular function and rule out any significant valvular abnormalities.
4. Aggressive management of cardiovascular risk factors.
Copy to: Kimo Martinez
Ara Jean MD, [facility], [facility]
[2024-10-19 13:15] LABS: ACT-LR - POC 136 Seconds (116-155)
[2024-10-19 13:33] LABS: ACT-LR - POC 229 Seconds (116-155)
--- NOTE | 2024-10-19 14:14 | PTCARENOTE ---
received pt back from lab technologist, pt is sr on the monitor, hr in the 90s, vss. pt continues to c/o of pain in bladder. irrigated pts recinos and pt found relief. pt resting in bed with family at bedside. pt educated on plan of care and pt verbalized
understanding. call roth within reach.
--- NOTE | 2024-10-19 16:47 | W.PN.HOSP.TC ---
Today's Communication/Plan
-
Medical therapy for non-STEMI
CVA
Continue ceftriaxone and wait for cultures
Await urology plans for hematuria
Assessment / Plan
Assessment / Plan
84-year-old male presented to the hospital with chest pain and shortness of breath.
CT abdomen and pelvis-mild left hydronephrosis and severe left hydroureter. Small simple left renal cyst. Gallstones. Mild fecal material in the colon. Severe prostatic hypertrophy.
10/19/2024-left heart catheterization-noncritical but obstructive coronary artery disease in the proximal to mid LAD with borderline positive IFR. At least moderate 60 to 70% stenosis in the mid RCA.
10/19/[id number] LV size and systolic function without regional wall motion abnormalities. EF 55 to 60%. Normal RV size and function. Trace AI. Mild
CVS: S1-S2 normal, sm at aa
Chest: CTA B/L
Abdomen: Soft, NT / Bowel sounds present
Extremities: No edema
CBI - Bloody urine
SPORTS PHYSICAL THERAPIST: Non focal exam
# Chest pain from non-STEMI
Obstructive but noncritical coronary artery disease per
Continue aspirin, as needed sublingual nitro, statin, beta-blockers and heparin drip
Echo as above
Cath results as above
Plan is to do medical therapy with aspirin, statin,Metoprolol, antianginals given hematuria
Off heparin drip
# Acute kidney injury-creatinine improving, with dye exposure watch creatinine for contrast-induced nephropathy
# Hematuria-continue CBI. Severe prostatic hypertrophy on CAT scan patient has had hematuria for 3 months. Left hydronephrosis hopefully will improve with Uribe catheter. Continue ceftriaxone
Patient off heparin drip now which will help hematuria
May need cystoscopy
# Hyperlipidemia-continue statin
# Enlarged prostate-on dutasteride and terazosin as outpatient
# Hypertension-holding losartan secondary to acute kidney injury.Continue nifedipine, metoprolol 25 mg daily added
# DVT prophylaxis-SCDs
# Full code
Discussed with nursing at bedside
Discussed with and son at bedside
Anticipated Discharge: 24 - 48 hours
Subjective/Interval History
-
Date of Service: October 19, 2024
Objective Data
-
Labs:
Laboratory Results
10/19/24 10/19/24
05:05 13:00
WBC 9.9
Hgb 12.5 L
Hct 38.2 L
Plt Count 194
APTT 47.8 H Pending
Sodium 143
Potassium 4.9
Chloride 107
Carbon Dioxide 29
BUN 31 H
Creatinine 1.5 H
Glucose 108 H
Calcium 8.8
Vital Signs:
Vital Signs
Temp Pulse Resp BP Pulse Ox
97.5 F 69 18 158/91 98
10/19/24 16:17 10/19/24 10:15 10/19/24 16:17 10/19/24 09:51 10/19/24 16:17
I&O
10/18/24 10/19/24 10/20/24
06:59 06:59 06:59
Intake Total 480 / 480
Output Total 2064
Balance 480 / 480 -2064
--- NOTE | 2024-10-19 17:59 | PTCARENOTE ---
Pt continues to be sr on the monitor, hr in the 70s, vss. pt offers no complaints at this time. right radial band off and cdi. CBI running per protocol, see documentation. Urine is blood tinged. Dr. Delarosa at bedside irrigating CBI. pt educated on
plan of care and pt verbalized understanding. call roth within reach.
[2024-10-19] MEDS: VALIUM INJECTION 5 MG IV (21:16)
--- NOTE | 2024-10-19 23:55 | PTCARENOTE ---
Rec'd pt at change of shift. Pt AAO*3, in NSR with pvc's, and VSS. Pt denies any pain or discomfort. Right radial site CDI. Pt agreed to right upper extremity restriction. Pt with CBI and output clear red tinged return. Pt resting with call
roth in reach. Plan of care ongoing.
[2024-10-20 03:21] VITALS: BP 147/81
[2024-10-20 03:55] LABS: Hemoglobin 11.6 g/dL (13.0-18.0); Mean Corp Hgb Conc. 31.4 g/dL (33.0-37.0); Mean Corpuscular Hgb 29.1 pg (27.0-31.0); Mean Corpuscular Volume 92.7 fL (80.0-94.0); Platelet Count 209 10^3/uL (130-400); Red Blood Cell Count 3.99 10^6/uL (4.70-6.10); Red Cell Dist. Width 13.7 % (11.5-14.5)
[2024-10-20 04:24] LABS: Blood Urea Nitrogen 31 mg/dl (9-20); Calcium 8.7 mg/dl (8.4-10.2); Carbon Dioxide 27 mmol/L (22-30); Chloride 107 mmol/L (98-107); Estimated Creatinine Clearance 40 ml/min; Glucose 105 mg/dl (70-99); Magnesium 2.5 mg/dl (1.6-2.3); Potassium 4.7 mmol/L (3.5-5.1); Sodium 143 mmol/L (135-145); eGFR 46.19
--- NOTE | 2024-10-20 05:47 | W.PN.HOSP.TC ---
Today's Communication/Plan
-
CBI as per urology, npo after midnight for cystoscopy
cont medical mgmt CAD as per Cardio, ASA statin Metoprolol CCB
Assessment / Plan
Assessment / Plan
Physical Exam
General: no acute distress, appears comfortable
CVS: S1-S2 normal, systolic murmur 4/6
Chest: CTA B/L
Abdomen: Soft, NT / Bowel sounds present
Extremities: No edema
: pinkish hue urine in recinos
MISSION ASSESSMENT SPECIALIST: AOx3
84-year-old male presented to the hospital with chest pain and shortness of breath.
CT abdomen and pelvis-mild left hydronephrosis and severe left hydroureter. Small simple left renal cyst. Gallstones. Mild fecal material in the colon. Severe prostatic hypertrophy.
10/19/2024-left heart catheterization-noncritical but obstructive coronary artery disease in the proximal to mid LAD with borderline positive IFR. At least moderate 60 to 70% stenosis in the mid RCA.
10/19/[id number] LV size and systolic function without regional wall motion abnormalities. EF 55 to 60%. Normal RV size and function. Trace AI. Mild
# Chest pain from non-STEMI
Obstructive but noncritical coronary artery disease per
Continue aspirin, as needed sublingual nitro, statin, beta-blockers and heparin drip
Echo as above
Cath results as above
heparin gtt completed
Cardio eval appreciated, cont medical mgmt w ASA statin BB CCB
# Acute kidney injury-creatinine improving, with dye exposure watch creatinine for contrast-induced nephropathy
#Suspect underlying CKD3, Cr improved consistently 1.5
# Hematuria-continue CBI. Severe prostatic hypertrophy on CAT scan patient has had hematuria for 3 months. Left hydronephrosis hopefully will improve with Recinos catheter. Continue ceftriaxone
urology eval appreciated, treated with CBI, npo after midnight for Cystoscopy
# Hyperlipidemia-continue statin
# Enlarged prostate-on dutasteride and terazosin as outpatient
# Hypertension-holding losartan secondary to acute kidney injury.Continue nifedipine, metoprolol 25 mg daily added
# DVT prophylaxis-SCDs
# Full code
I spent a total of 50 minutes with the patient or on the floor. More than 50% of this time involved counseling and coordination of care.
Anticipated Discharge: 24 - 48 hours
Subjective/Interval History
-
Date of Service: October 20, 2024
no acute distress sitting up comfortably in bed. overall reports feeling well. Pinkish hue noted urine in Recinos.
Objective Data
-
Labs:
Laboratory Results
10/20/24
03:25
WBC 10.0
Hgb 11.6 L
Hct 37.0 L
Plt Count 209
Sodium 143
Potassium 4.7
Chloride 107
Carbon Dioxide 27
BUN 31 H
Creatinine 1.5 H
Glucose 105 H
Calcium 8.7
Vital Signs:
Vital Signs
Temp Pulse Resp BP Pulse Ox
97.9 F 76 20 147/81 95
10/20/24 03:32 10/20/24 04:00 10/20/24 03:32 10/20/24 03:21 10/20/24 03:32
I&O
10/18/24 10/19/24 10/20/24
06:59 06:59 06:59
Intake Total 480 / 480 480 / 480
Output Total 2064 2250 / 225
Balance 480 / 480 -2064 / -2064 -1769 / -1769
[2024-10-20 07:19] VITALS: BP 141/66
--- NOTE | 2024-10-20 07:37 | W.PN.URO.CBU ---
Today's Communication / Plan
-
OR TOMORROW
Assessment / Plan
-
gross hematuria for 3 months
? UTI
sig BPH
left hydro- suspected due to BPH
CAD with DE
plan is to manage cardiac dz medically with asa only at this point
hematuria improved with hold of heparin
plan is OR tomorrow for cysto/retrograde/fulguration- etc- although if prostate is source of bleeding given its massive size this may just be a temporizing measure
monitor hgb- add type and cross to am labs
will be back this afternoon to discuss with pt and family
THE RISKS OF ANY PROCEDURE GIVEN HIS CARIDAC DISEASE IS KNOWN BUT AT THIS JUNCTURE UNAVOIDABLE HIS BLEEDING HAS BEEN ONGOING AND NOT ADDRESSED OVER THE LAST 3 MONTHS
Diagnosis
-
Date of Service: October 20, 2024
-
Patient Diagnosis:
CAD
gross hematuria
BPH
left hydro
Subjective
-
pt awake and alert this am
i saw him yesterday evening- urine was very bloody- likely secondary to hep bolus during cath and it appeared his cath was malpositioned; repositioned cath/added fluid to balloon and hand irrigated
this am on moderate drip- urine is light pink
remarkably- little change in hgb- cr stable
spoke with cardiology after cath yesterday- heparin is now off since yesterday afternoon and plan is to manage medically until bleeding issue resolved
Objective
-
Vital Signs
Temp Pulse Resp BP Pulse Ox
98.3 F 76 18 147/81 92
10/20/24 07:21 10/20/24 04:00 10/20/24 07:21 10/20/24 03:21 10/20/24 07:21
Intake and Output
10/19/24 10/20/24 10/21/24
06:59 06:59 06:59
Intake Total 480 / 480
Output Total 2064 6200 / 6200
Balance -2064 / -2064 -5719 / -5719
Intake:
Oral fluids 480 / 480
Output:
True Urine Output from CBI 2064 6200 / 6200
True urine output from hand 0 / 0
irrigation
Laboratory Results
10/20/24 03:25
10/20/24 03:25
Review of Systems
-
Constitutional: Fatigue
Respiratory: No Symptoms
Cardiac: No Symptoms
Abdomen/GI: No Symptoms
: Other (occ bladder spasms)
Physical Exam
-
General - no acute distress
Abdomen - soft, non-tender
Genitalia - recinos in position
[2024-10-20] MEDS: TOPROL XL 25 MG PO (07:54)
[2024-10-20] MEDS: LOW STRENGTH ASPIRIN 81 MG PO (07:55)
[2024-10-20] MEDS: PROCARDIA XL (EXTENDED RELEASE) 30 MG PO (07:55)
[2024-10-20] MEDS: HYTRIN 5 MG PO (07:56)
[2024-10-20] MEDS: PROSCAR 5 MG PO (07:56)
[2024-10-20] MEDS: LIPITOR 40 MG PO (07:56)
--- NOTE | 2024-10-20 09:36 | PTCARENOTE ---
CBI w/ NSS infusing, recinos draining clear light pink. Pt denies pain, resting comfortably.
[2024-10-20] MEDS: ROCEPHIN 1000 MG IV (10:08)
[2024-10-20] MEDS: STERILE WATER FOR INJECTION 10 ML IV (10:09)
--- NOTE | 2024-10-20 10:17 | CM ---
Reviewed chart. Met with Mr. Mauro to review discharge plans. He states he may be having surgery tomorrow. Prior to admission he resides with his spouse and son in a two story home without any steps to enter. He has a full flight of steps to get
to bedroom/full bathroom. He has a powder room on the first floor. Prior to admission he was independent with ambulation and adls. He does not have any DME in the home. He has a prescription plan and uses [facility]. He has never had [facility]. Will need to see his functional level post surgery to see if he will have skilled care needs. Medical work-up in progress. The discharge plan is to return home with his spouse and son and [facility] if indicated when medically
stable.
[2024-10-20 11:19] VITALS: BP 130/72
--- NOTE | 2024-10-20 11:22 | W.PN.CARDCBS ---
Addendum entered and electronically signed by Kimo Martinez MD 10/20/24 17:09:
I saw and examined the patient.
The Brewmaster's note was reviewed and I agree with the note.
Comment: Briefly, 84-year-old man who presented following an episode of chest discomfort relieved with nitro found to have mildly elevated troponin consistent with NSTEMI
Underwent left heart catheterization 10/19/2024 with moderate coronary artery disease
TTE with NL LV function
Unfortunately has had ongoing hematuria and therefore plan for medical management of CAD at this time to allow urology to address his hematuria
Plan for OR with urology tomorrow
Currently resting comfortably and is chest pain-free
For now continue aspirin, high intensity statin, beta-jerson and calcium channel jerson
Rest per Shira Eaton
Original Note:
Today's Communication / Plan
-
Cont medical therapy
No chest pain
OR with urology in AM
Impression / Plan
-
PCP: Ingrid Chan affiliated with [facility]
Analytics Analyst: None, initially seen by Michelle
Assessment:
NSTEMI, peak Troponin 0.436
Chest pain on admission
CAD with noncritical but obstructive prox to mid LAD lesions and 60-70% mid RCA lesion by cath 10/19/24
REDDY
HTN
HLD
BPH
Persistent gross hematuria
Echo 10/19/2024: EF 55 to 60%, normal RV size and function, mild peak/mean 23/11 mmHg, trace aortic regurgitation, no pericardial effusion
Plan:
-Patient with suspected NSTEMI on admission due to chest pain and elevated Troponin that peaked at 0.436.
-Cardiac cath 10/19/24 revealed noncritical but obstructive CAD in the proximal to mid LAD with borderline positive IFR and at least moderate 60 to 70% stenosis in the mid RCA, but no LM disease. Plan is for medical management.
-Urology taking patient to OR in AM for cysto/retrograde/fulguration due to ongoing gross hematuria and to also assess the prostate in case patient will need staged intervention.
-Heparin gtt ran for 48 hours from admission and is now stopped
-New to aspirin 81 mg daily
-Patient is new to Toprol XL 25 mg daily, he is tolerating all doses thus far
-Outpatient dose of nifedipine ER 30 mg daily has been continued
-Outpatient dose of losartan 25 mg daily is on hold due to elevated Cre
-LDL 56 and outpatient dose of atorvastatin was increased to 40 mg daily.
Progress Note - Analytics Analyst
Subjective
Date of Service: October 20, 2024
Chest pain free
Objective
Labs:
10/20/24 03:25
10/20/24 03:25
Labs
Hgb 11.6 g/dL (13.0-18.0) L 10/20/24 03:25
Hct 37.0 % (39.0-52.0) L 10/20/24 03:25
Plt Count 209 10^3/uL (130-400) 10/20/24 03:25
PT 14.0 Sec (11.4-14.6) 10/17/24 10:50
INR 1.05 10/17/24 10:50
APTT Cancelled 10/19/24 13:00
Sodium 143 mmol/L (135-145) 10/20/24 03:25
Potassium 4.7 mmol/L (3.5-5.1) 10/20/24 03:25
BUN 31 mg/dl (9-20) H 10/20/24 03:25
Creatinine 1.5 mg/dL (0.7-1.3) H 10/20/24 03:25
Glucose 105 mg/dl (70-99) H 10/20/24 03:25
Troponins
10/17/24 10/17/24 10/17/24
10:50 15:55 20:25
Troponin I 0.042 H* Cancelled 0.436 H*
10/18/24 10/18/24 10/18/24
07:37 13:15 19:15
Troponin I 0.203 H* Cancelled Cancelled
Vital Signs and I&O:
Vital Signs
Temp Pulse Resp BP Pulse Ox
97.9 F 75 18 141/66 96
10/20/24 11:14 10/20/24 08:00 10/20/24 11:14 10/20/24 07:54 10/20/24 11:14
Vital Signs
Temp Pulse Resp BP Pulse Ox
97.9 F 75 18 141/66 96
10/20/24 11:14 10/20/24 08:00 10/20/24 11:14 10/20/24 07:54 10/20/24 11:14
Intake & Output
10/18/24 10/19/24 10/20/24 10/21/24
06:59 06:59 06:59 06:59
Intake Total 480 / 480 480 / 480
Output Total 2064 / 2064 6200 / 6200
Balance 480 / 480 -2064 / -2064 -20 / -5720
Physical Exam
Physical Exam
Gen: AAO x3
HEENT: MMM
Lungs: RA, no wheeze
Abd: ND
Ext: No LE edema
Skin: Warm, dry
Neuro: Non-focal
: CBI running, fruit punch colored urine
--- NOTE | 2024-10-20 17:05 | W.PN.UPDATE ---
Update Note
Progress Note Update
pt seen with family at bedside
urine very light pink to clear on moderate drip cbi
reviewed plan of OR tomorrow for cysto/possible retrogrades/possible turbt/turp
reviewed risks of procedure given recent cardiac event
reviewed possible need for secondary procedures
reviewed risks of bleeding, infx, cv event, dvt or stroke, gu injury, etc
consent signed and will proceed
[2024-10-20 18:45] VITALS: BP 146/75
[2024-10-20 22:53] VITALS: BP 132/71
[2024-10-21] VITALS (15 sets, daily range): BP systolic 112–154; BP diastolic 65–97; BMI 31.8
--- NOTE | 2024-10-21 01:20 | PTCARENOTE ---
patient complaining of bladder spasm. irrigated per order. a few blood clots with pink tinged urine. patient states relief.
CBI continued per order. pink tinged urine. recinos care completed. patient oriented x3. SR with a first degree AVB 70s. bp stable. denies any cp/sob. R radial site intact. educated patient to inform RN with any changes. call roth within reach.
[2024-10-21 05:33] LABS: Hematocrit 35.8 % (39.0-52.0); Hemoglobin 11.7 g/dL (13.0-18.0); Mean Corp Hgb Conc. 32.7 g/dL (33.0-37.0); Mean Corpuscular Hgb 29.8 pg (27.0-31.0); Mean Corpuscular Volume 91.3 fL (80.0-94.0); Mean Platelet Volume 8.9 fL (7.4-10.4); Platelet Count 211 10^3/uL (130-400); Red Blood Cell Count 3.92 10^6/uL (4.70-6.10); Red Cell Dist. Width 13.5 % (11.5-14.5); White Blood Cell Count 9.6 10^3/uL (4.8-10.8)
[2024-10-21 06:04] LABS: ALT (SGPT) 23 U/L (0-50); AST (SGOT) 23 U/L (17-59); Albumin 3.6 g/dl (3.5-5.0); Alkaline Phosphatase 101 U/L (38-126); Blood Urea Nitrogen 31 mg/dl (9-20); Calcium 8.8 mg/dl (8.4-10.2); Carbon Dioxide 26 mmol/L (22-30); Chloride 109 mmol/L (98-107); Estimated Creatinine Clearance 46 ml/min; Glucose 101 mg/dl (70-99); Magnesium 2.4 mg/dl (1.6-2.3); Phosphorus 3.4 mg/dl (2.5-4.5); Potassium 4.6 mmol/L (3.5-5.1); Sodium 143 mmol/L (135-145); Total Protein 6.1 g/dl (6.3-8.2); eGFR 54.85
--- NOTE | 2024-10-21 07:02 | W.PN.HOSP.TC ---
Today's Communication/Plan
-
CBI as per urology, npo for cystoscopy
hand irrigation prn
cont medical mgmt CAD as per Cardio, ASA statin Metoprolol CCB
Assessment / Plan
Assessment / Plan
Physical Exam
General: no acute distress, appears comfortable
CVS: S1-S2 normal, systolic murmur 4/6
Chest: CTA B/L
Abdomen: Soft, NT / Bowel sounds present
Extremities: No edema
: pinkish hue urine in recinos
TAP BUILDER: AOx3
84-year-old male presented to the hospital with chest pain and shortness of breath.
CT abdomen and pelvis-mild left hydronephrosis and severe left hydroureter. Small simple left renal cyst. Gallstones. Mild fecal material in the colon. Severe prostatic hypertrophy.
10/19/2024-left heart catheterization-noncritical but obstructive coronary artery disease in the proximal to mid LAD with borderline positive IFR. At least moderate 60 to 70% stenosis in the mid RCA.
10/19/[id number] LV size and systolic function without regional wall motion abnormalities. EF 55 to 60%. Normal RV size and function. Trace AI. Mild
# Chest pain from non-STEMI
Obstructive but noncritical coronary artery disease per
Continue aspirin, as needed sublingual nitro, statin, beta-blockers and heparin drip
Echo as above
Cath results as above
heparin gtt completed
Cardio eval appreciated, cont medical mgmt w ASA statin BB CCB
# Acute kidney injury-creatinine improving, with dye exposure watch creatinine for contrast-induced nephropathy
#Suspect underlying CKD3, Cr improved consistently 1.5
# Hematuria. Severe prostatic hypertrophy on CAT scan patient has had hematuria for 3 months. Left hydronephrosis hopefully will improve with Recinos catheter. Continue ceftriaxone
occasionally requiring hand irrigation
urology eval appreciated, cont CBI, npo for Cystoscopy today
# Hyperlipidemia-continue statin
# Enlarged prostate-on dutasteride and terazosin as outpatient
# Hypertension-holding losartan secondary to acute kidney injury. Continue nifedipine, metoprolol 25 mg daily added tolerating
# DVT prophylaxis-SCDs
# Full code
I spent a total of 50 minutes with the patient or on the floor. More than 50% of this time involved counseling and coordination of care.
Anticipated Discharge: 24 - 48 hours
Subjective/Interval History
-
Date of Service: October 21, 2024
Seen and examined at bedside in mild moderate distress d/t pelvic/genital pain, relieved with hand irrigation by nurse, clots expelled. Denies any other issues
Objective Data
-
Labs:
Laboratory Results
10/21/24
04:52
WBC 9.6
Hgb 11.7 L
Hct 35.8 L
Plt Count 211
Sodium 143
Potassium 4.6
Chloride 109 H
Carbon Dioxide 26
BUN 31 H
Creatinine 1.3
Glucose 101 H
Calcium 8.8
Total Bilirubin 1.0
AST 23
ALT 23
Alkaline Phosphatase 101
Vital Signs:
Vital Signs
Temp Pulse Resp BP Pulse Ox
98.3 F 81 18 148/74 93
10/21/24 04:50 10/21/24 05:00 10/21/24 04:50 10/21/24 04:50 10/21/24 04:50
I&O
10/20/24 10/21/24 10/22/24
06:59 06:59 06:59
Intake Total 480 / 480 250 / 250
Output Total 6200 / 6200 1050 / 1050
Balance -5720 / -5720 -800 / -800
[2024-10-21] MEDS: NSS 1000 IV (07:32)
[2024-10-21] MEDS: TOPROL XL 25 MG PO (08:37)
[2024-10-21] MEDS: HYTRIN 5 MG PO (08:37)
[2024-10-21] MEDS: LIPITOR 40 MG PO (08:38)
[2024-10-21] MEDS: LOW STRENGTH ASPIRIN 81 MG PO (08:38)
[2024-10-21] MEDS: PROSCAR 5 MG PO (08:38)
[2024-10-21] MEDS: PROCARDIA XL (EXTENDED RELEASE) 30 MG PO (08:41)
--- NOTE | 2024-10-21 08:53 | W.PN.UPDATE ---
Update Note
Progress Note Update
pt stable
urine gavino
did require hand irrigation last night
hgb stable
for OR today
--- NOTE | 2024-10-21 09:09 | W.PN.CARDCBS ---
Addendum entered and electronically signed by Kimo Martinez MD 10/21/24 14:01:
I saw and examined the patient.
The Lacquer Sprayer's note was reviewed and I agree with the note.
Comment: Briefly, 84-year-old man who presented following an episode of chest discomfort relieved with nitro found to have mildly elevated troponin consistent with NSTEMI
Underwent left heart catheterization 10/19/2024 with moderate coronary artery disease
TTE with NL LV function
Unfortunately has had ongoing hematuria and therefore plan for medical management of CAD at this time to allow urology to address his hematuria
Plan for OR today with urology
Remains chest pain-free
For now continue aspirin, high intensity statin, beta-jerson and calcium channel jerson
Management of his coronary disease will hinge on the results of his urology workup and resolution of hematuria
Rest per Shira Ye
Original Note:
Today's Communication / Plan
-
Check post-op ECG, ordered by me
Cont aspirin, nifedipine and Toprol XL
Impression / Plan
-
PCP: Ingrid Chan affiliated with [facility]
Punch Press Operator Helper: None, initially seen by Michelle
Assessment:
NSTEMI, peak Troponin 0.436
Chest pain on admission
CAD with noncritical but obstructive prox to mid LAD lesions and 60-70% mid RCA lesion by cath 10/19/24
REDDY
HTN
HLD
BPH
Persistent gross hematuria
Echo 10/19/24: EF 55 to 60%, normal RV size and function, mild peak/mean 23/11 mmHg, trace aortic regurgitation, no pericardial effusion
Plan:
-Patient reports he is going to the OR 10/21/24 afternoon for planned cysto/retrograde/fulguration due to ongoing gross hematuria and to also assess the prostate in case patient will need staged intervention.
-Patient with suspected NSTEMI on admission due to chest pain and elevated Troponin that peaked at 0.436.
-Cardiac cath 12/9/24 revealed noncritical but obstructive CAD in the proximal to mid LAD with borderline positive IFR and at least moderate 60 to 70% stenosis in the mid RCA, but no LM disease. Plan is for medical management.
-Patient is pain free off of Heparin gtt.
-New to aspirin 81 mg daily this admission
-Patient is new to Toprol XL 25 mg daily, he is tolerating all doses thus far
-Outpatient dose of nifedipine ER 30 mg daily has been continued
-Outpatient dose of losartan 25 mg daily is on hold due to elevated Cre. BP overall stable.
-LDL 56 and outpatient dose of atorvastatin was increased to 40 mg daily.
-Recommend ECG post-op and ongoing tele. He should return to IVU if possible, would not send to a med/surg floor. ECG ordered by me.
Progress Note - Punch Press Operator Helper
Subjective
Date of Service: October 21, 2024
Denies chest pain
Objective
Labs:
10/21/24 04:52
10/21/24 04:52
Labs
Hgb 11.7 g/dL (13.0-18.0) L 10/21/24 04:52
Hct 35.8 % (39.0-52.0) L 10/21/24 04:52
Plt Count 211 10^3/uL (130-400) 10/21/24 04:52
PT 14.0 Sec (11.4-14.6) 10/17/24 10:50
INR 1.05 10/17/24 10:50
APTT Cancelled 10/19/24 13:00
Sodium 143 mmol/L (135-145) 10/21/24 04:52
Potassium 4.6 mmol/L (3.5-5.1) 10/21/24 04:52
BUN 31 mg/dl (9-20) H 10/21/24 04:52
Creatinine 1.3 mg/dL (0.7-1.3) 10/21/24 04:52
Glucose 101 mg/dl (70-99) H 10/21/24 04:52
Troponins
10/18/24 10/18/24
13:15 19:15
Troponin I Cancelled Cancelled
Vital Signs and I&O:
Vital Signs
Temp Pulse Resp BP Pulse Ox
97.6 F 75 20 146/70 94
10/21/24 07:58 10/21/24 08:00 10/21/24 07:58 10/21/24 08:00 10/21/24 08:00
Vital Signs
Temp Pulse Resp BP Pulse Ox
97.6 F 75 20 146/70 94
10/21/24 07:58 10/21/24 08:00 10/21/24 07:58 10/21/24 08:00 10/21/24 08:00
Intake & Output
10/19/24 10/20/24 10/21/24 10/22/24
06:59 06:59 06:59 06:59
Intake Total 480 / 480 250 / 250
Output Total 2064 / 2064 6200 / 6200 1050 / 1050
Balance -2064 / -2064 -5720 / -5720 -800 / -800
Physical Exam
Physical Exam
Gen: AAO x3
HEENT: MMM
Lungs: RA, no wheeze
Card: SR on tele
Abd: ND
Ext: No LE edema
Skin: Warm, dry
Neuro: Non-focal
: CBI running, light tea colored urine
Scores
MOHSEN for NSTEMI
Age >/= 65: Yes
>/=3 CAD risk factors-HTN,High Chol,Fam hx CAD,DM,Smoker: Yes
Known CAD (stenosis >/=50%): Yes
ASA use in past 7 days: Yes
Severe angina (>/= 2 episodes in 24 hrs): No
EKG ST Changes >/= 0.5mm: No
Positive cardiac marker: Yes
Score: 5
Risk at 14 days-mortality, new/recurrent AL, severe ischemia: Intermediate Risk- 26% Risk at 14 days- all cause mortality, new or recurrent AL, or severe recurrent ischemia requiring urgent revascularization
[2024-10-21] MEDS: STERILE WATER FOR INJECTION 10 ML IV (09:26)
[2024-10-21] MEDS: ROCEPHIN 1000 MG IV (09:26)
[2024-10-21] MEDS: FLUSH (NSS) 1 FLUSH IV (09:27)
--- NOTE | 2024-10-21 11:38 | PTCARENOTE ---
Pt received this am with no c/o of any pain or sob. CBI infusing as ordered. Urine clear pale yellow with no clots. Pt taken to the OR at 1130.
--- NOTE | 2024-10-21 13:58 | CM ---
CM following for DC planning needs.
Reviewed initial assessment. Pt. resides w/ spouse in a private, 2 story home. Functionally, patient is indep. with ADLs, mobility at baseline.
Anticipated DC plan is for home, without needs.
CM to follow for DC planning needs.
--- NOTE | 2024-10-21 14:44 | W.IMMPOSTOP ---
Surgical Immed Post Op Note
-
Primary Surgeon: Elie
Pre-op Diagnosis: Prostatomegaly with Intractable Gross Hematuria, Chronic Left Hydroureteronephrosis
Post-op Diagnosis: Bladder Cancer, Prostatomegaly with Intractable Gross Hematuria, Chronic Left Hydroureteronephrosis due to [id number] ureteric orifice
Procedure Performed: TURP, TURBT
Anesthesia Type: gen
Specimen / Cultures: Prostate Chips, Bladder Tumor fragments
Estimated Blood Loss: 17 ml
Complications: none
Operative Findings: 1. Bladder Neoplasm: ~3.5 cm, papillary, left anterolateral wall
2. Prostatomegaly
3. Scarring in vicinity of anticipated location of left ureteric orifice
I LMOM for Sophie, , regarding intraoperative findings.
[2024-10-21] MEDS: Pyridium 200 MG PO (16:03)
[2024-10-21] MEDS: NSS IV (16:37)
--- NOTE | 2024-10-21 17:29 | PTCARENOTE ---
Pt received at 1400 post procedure with CBI infusing. Urine clear light pink in color. Pt awake and alert. Denies any pain or discomfort.
[2024-10-21] MEDS: MYLICON 80 MG PO (21:58)
--- NOTE | 2024-10-21 23:06 | PTCARENOTE ---
Pt rec'd at beginning of shift awake,alert no c/o bladder spasms. Urine color orange with no clots. Pt received Pyridium on day shift.
Pt c/o feeling bloated,gassy. medicated with Mylicon with relief noted per pt. call roth within reach
--- NOTE | 2024-10-22 03:51 | DOWNTIME ---
There was a [employer] Client Courier Delivery Driver Downtime on 10/22/2024 from 0200 to 10/22/2024 at 0325 . Downtime documentation of patient's care, including medication administrations, has been reconciled in the electronic record per guidelines. Refer to the
patient's paper chart under the miscellaneous tab to see printed paper medication records and downtime forms.
[2024-10-22 04:15] VITALS: BP 131/69
[2024-10-22 04:57] LABS: Hematocrit 34.1 % (39.0-52.0); Hemoglobin 11.4 g/dL (13.0-18.0); Mean Corp Hgb Conc. 33.4 g/dL (33.0-37.0); Mean Corpuscular Hgb 29.6 pg (27.0-31.0); Mean Corpuscular Volume 88.6 fL (80.0-94.0); Platelet Count 207 10^3/uL (130-400); Red Blood Cell Count 3.85 10^6/uL (4.70-6.10); Red Cell Dist. Width 13.2 % (11.5-14.5); White Blood Cell Count 12.9 10^3/uL (4.8-10.8)
[2024-10-22 05:27] LABS: ALT (SGPT) 21 U/L (0-50); AST (SGOT) 21 U/L (17-59); Albumin 3.6 g/dl (3.5-5.0); Alkaline Phosphatase 90 U/L (38-126); Blood Urea Nitrogen 35 mg/dl (9-20); Calcium 8.3 mg/dl (8.4-10.2); Carbon Dioxide 23 mmol/L (22-30); Chloride 110 mmol/L (98-107); Estimated Creatinine Clearance 33 ml/min; Glucose 121 mg/dl (70-99); Magnesium 2.4 mg/dl (1.6-2.3); Phosphorus 4.3 mg/dl (2.5-4.5); Potassium 4.8 mmol/L (3.5-5.1); Sodium 142 mmol/L (135-145); Total Bilirubin 0.7 mg/dl (0.2-1.3); eGFR 37.12
--- NOTE | 2024-10-22 07:08 | W.PN.HOSP.TC ---
Today's Communication/Plan
-
CBI abx as per urology
cont medical mgmt CAD as per Cardio, ASA statin Metoprolol CCB
IVF
Monitor H&H kidney function
Assessment / Plan
Assessment / Plan
Physical Exam
General: no acute distress, appears comfortable
CVS: S1-S2 normal, systolic murmur 4/6
Chest: CTA B/L
Abdomen: Soft, Bowel sounds present, mild left lower quadrant/flank tenderness noted
Extremities: No edema
: pinkish hue urine in recinos
INFORMATION MANAGEMENT MANAGER: AOx3
84-year-old male presented to the hospital with chest pain and shortness of breath.
CT abdomen and pelvis-mild left hydronephrosis and severe left hydroureter. Small simple left renal cyst. Gallstones. Mild fecal material in the colon. Severe prostatic hypertrophy.
10/19/2024-left heart catheterization-noncritical but obstructive coronary artery disease in the proximal to mid LAD with borderline positive IFR. At least moderate 60 to 70% stenosis in the mid RCA.
10/19/20240025-[id number] LV size and systolic function without regional wall motion abnormalities. EF 55 to 60%. Normal RV size and function. Trace AI. Mild
# Chest pain from non-STEMI
Obstructive but noncritical coronary artery disease per
Continue aspirin, as needed sublingual nitro, statin, beta-blockers and heparin drip
Echo as above
Cath results as above
heparin gtt completed
Cardio eval appreciated, cont medical mgmt w ASA statin BB CCB
# Acute kidney injury-creatinine improving, with dye exposure watch creatinine for contrast-induced nephropathy
#Suspect underlying CKD3, Cr improved consistently 1.5
#SHIRA later reoccurred following cystoscopy as below Cr sheila to 2.1
cont IVF
monitor renal function
possible ureteral compromise as per Urology, possible need for percutaneous nephrostomy tube if Cr cont to worsen
# Hematuria. Severe prostatic hypertrophy on CAT scan patient has had hematuria for 3 months. Left hydronephrosis hopefully will improve with Recinos catheter. Continue ceftriaxone
occasionally requiring hand irrigation
urology eval appreciated, cont CBI, Cystoscopy completed 10/21 bladder tumor partially resected d/t interference from large prostate
# Hyperlipidemia-continue statin
# Enlarged prostate-on dutasteride and terazosin as outpatient
# Hypertension-holding losartan secondary to acute kidney injury. Continue nifedipine, metoprolol 25 mg daily added tolerating
# DVT prophylaxis-SCDs
# Full code
I spent a total of 50 minutes with the patient or on the floor. More than 50% of this time involved counseling and coordination of care.
Anticipated Discharge: 24 - 48 hours
Subjective/Interval History
-
Date of Service: October 22, 2024
Seen and examined at bedside in no acute distress resting comfortably in bed. Overall reports feeling well. Had noted left lower quadrant abd/flank pain tenderness since significantly improved, tenderness mild. Hematuria appeared resolved at
time of evaluation but noted earlier persistent hematuria overnight and earlier morning per reports.
Objective Data
-
Labs:
Laboratory Results
10/22/24
04:26
WBC 12.9 H
Hgb 11.4 L
Hct 34.1 L
Plt Count 207
Sodium 142
Potassium 4.8
Chloride 110 H
Carbon Dioxide 23
BUN 35 H
Creatinine 1.8 H
Glucose 121 H
Calcium 8.3 L
Total Bilirubin 0.7
AST 21
ALT 21
Alkaline Phosphatase 90
Vital Signs:
Vital Signs
Temp Pulse Resp BP Pulse Ox
98.1 F 74 20 131/69 90
10/22/24 04:15 10/22/24 05:00 10/22/24 04:15 10/22/24 04:15 10/22/24 04:15
I&O
10/21/24 10/22/24 10/23/24
06:59 06:59 06:59
Intake Total 250 / 250 100 / 100
Output Total 1050 / 1050 5550 / 5550
Balance -800 / -800 -5450 / -5450
[2024-10-22 07:22] VITALS: BP 123/63
[2024-10-22] MEDS: LIPITOR 40 MG PO (07:24)
[2024-10-22] MEDS: PROSCAR 5 MG PO (07:24)
[2024-10-22] MEDS: NSS IV (07:24)
[2024-10-22] MEDS: HYTRIN 5 MG PO (07:24)
[2024-10-22] MEDS: LOW STRENGTH ASPIRIN 81 MG PO (07:24)
[2024-10-22] MEDS: TOPROL XL 25 MG PO (07:24)
[2024-10-22] MEDS: PROCARDIA XL (EXTENDED RELEASE) 30 MG PO (07:34)
--- NOTE | 2024-10-22 08:17 | W.PN.URO.CBU ---
Today's Communication / Plan
-
continue cbi
track hgb and cr level
Assessment / Plan
-
gross hematuria for 3 months
? UTI
sig BPH
BLADDER TUMOR
left hydro- suspected due to BPH
CAD with MT
very difficult procedure yesterday due to siz of pt's prostate
large tumor noted- due to prostate size could only be partially resected
left UO not identified
pt still with hematuria and now some left LLQ pain and rise in cr level
hgb relatively stable
plan is to try and wean cbi and if urine clears- remove recinos for TOV- then discussion of options fo repeat resection
if he continues to bleed- would need to consider other options
will also track cr and discomfort- if cr continues to rise unfortunately would need to consider perc tube placement
difficult situation- fortunately pt clinically stable for now
Diagnosis
-
Date of Service: October 22, 2024
-
Patient Diagnosis:
CAD
gross hematuria
BPH
Bladder Tumor
left hydro
s/p cysto/partial turbt and fulguration 10/21
Subjective
-
urine harper colored
hgb stable/ cr up slightly
pt is having some left LQ pain
Objective
-
Vital Signs
Temp Pulse Resp BP Pulse Ox
98.1 F 74 20 131/69 93
10/22/24 07:20 10/22/24 05:00 10/22/24 07:20 10/22/24 04:15 10/22/24 07:20
Intake and Output
10/21/24 10/22/24 10/23/24
06:59 06:59 06:59
Intake Total 250 / 250 100 / 100
Output Total 1050 / 1050 5550 / 5550
Balance -800 / -800 -5450 / -5450
Intake:
Oral fluids 250 / 250
IV fluids (Total) 100 / 100
normosol 100 / 100
Output:
Urine, Recinos 3500 / 3500
True Urine Output from CBI 400 / 400 2049
True urine output from hand 650 / 650
irrigation
Laboratory Results
10/22/24 04:26
10/22/24 04:26
Review of Systems
-
Constitutional: Fatigue
Respiratory: No Symptoms
Cardiac: No Symptoms
Abdomen/GI: No Symptoms
: Other (recinos)
Physical Exam
-
General - no acute distress
Abdomen - soft, non-tender
Genitalia - normal- [address] way [address]
[2024-10-22] MEDS: STERILE WATER FOR INJECTION 10 ML IV (10:33)
[2024-10-22] MEDS: ROCEPHIN 1000 MG IV (10:33)
[2024-10-22] MEDS: FLUSH (NSS) 1 FLUSH IV (10:37)
[2024-10-22] MEDS: NSS 1000 IV ×2 (11:11→22:18)
[2024-10-22 11:35] VITALS: BP 130/87
--- NOTE | 2024-10-22 11:55 | W.PN.CARDCBS ---
Addendum entered and electronically signed by Kimo Martinez MD 10/22/24 12:53:
I saw and examined the patient.
The Network Architect Manager's note was reviewed and I agree with the note.
Comment: Briefly, 84-year-old man who presented following an episode of chest discomfort relieved with nitro found to have mildly elevated troponin consistent with NSTEMI
Underwent left heart catheterization 10/19/2024 with moderate coronary artery disease
TTE with NL LV function
No recurrence of chest pain here
Unfortunately has had ongoing hematuria and therefore plan for medical management of CAD at this time to allow urology to address his hematuria
Underwent cysto and bladder mass found. May need additional urologic procedures or xfer to tertiary care center.
For now continue aspirin, high intensity statin, beta-jerson and calcium channel jerson
Management of his coronary disease will hinge on the results of his urology workup and resolution of hematuria
Rest per Shira Ye
Original Note:
Today's Communication / Plan
-
Tolerating aspirin, statin and BB
Check post-op ECG now, it was done pre-op yesterday
Impression / Plan
-
PCP: Ingrid Chan affiliated with [facility]
.Net Developer: None, initially seen by Michelle
Assessment:
NSTEMI, peak Troponin 0.436
Chest pain on admission
CAD with noncritical but obstructive prox to mid LAD lesions and 60-70% mid RCA lesion by cath 10/19/24
REDDY
HTN
HLD
BPH
Bladder Cancer seen on cysto 10/17/24
Prostatomegaly with intractable gross hematuria
Echo 10/19/24: EF 55 to 60%, normal RV size and function, mild peak/mean 23/11 mmHg, trace aortic regurgitation, no pericardial effusion
Plan:
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 The procedure was described as being very difficult due to the size of the patient's prostate and a large tumor burden was noted, the prostate
could only be partially resected. Urology continues to follow the patient and he has ongoing hematuria and LLQ pain on 10/22/2024, current plan is to wean CBI and attempt to remove Uribe catheter, but if unsuccessful possible perc tube placement
-From a cardiac standpoint we will continue to manage his CAD medically. Patient with suspected NSTEMI on admission due to chest pain and elevated Troponin that peaked at 0.436.
-Cardiac cath 10/19/24 revealed noncritical but obstructive CAD in the proximal to mid LAD with borderline positive IFR and at least moderate 60 to 70% stenosis in the mid RCA, but no LM disease. Plan is for medical management.
-Hgb stable on aspirin 81 mg daily which was a new med this admission
-Patient is new to Toprol XL 25 mg daily, he is tolerating all doses thus far
-Outpatient dose of nifedipine ER 30 mg daily has been continued
-Outpatient dose of losartan 25 mg daily is on hold due to elevated Cre.
-Outpatient dose of atorvastatin increased to 40 mg daily for LDL 56.
-Check ECG 10/22/24. Of note ECG ordered by me on 10/21/24 to be performed at 1500 that day and labeled as a post-op check, but it was performed at 0927 for some reason. Check post-op ECG now.
-Patient did not have a water meter installer prior to admission, will arrange follow up at the [facility] office
Progress Note - .Net Developer
Subjective
Date of Service: October 22, 2024
No chest pain
Objective
Labs:
Labs
Hgb 11.4 g/dL (13.0-18.0) L 10/22/24 04:26
Hct 34.1 % (39.0-52.0) L 10/22/24 04:26
Plt Count 207 10^3/uL (130-400) 10/22/24 04:26
PT 14.0 Sec (11.4-14.6) 10/17/24 10:50
INR 1.05 10/17/24 10:50
APTT Cancelled 10/19/24 13:00
Sodium 142 mmol/L (135-145) 10/22/24 04:26
Potassium 4.8 mmol/L (3.5-5.1) 10/22/24 04:26
BUN 35 mg/dl (9-20) H 10/22/24 04:26
Creatinine 1.8 mg/dL (0.7-1.3) H 10/22/24 04:26
Glucose 121 mg/dl (70-99) H 10/22/24 04:26
Vital Signs and I&O:
Vital Signs
Temp Pulse Resp BP Pulse Ox
98 F 74 20 131/69 90
10/22/24 11:33 10/22/24 05:00 10/22/24 11:33 10/22/24 04:15 10/22/24 11:33
Vital Signs
Temp Pulse Resp BP Pulse Ox
98 F 74 20 131/69 90
10/22/24 11:33 10/22/24 05:00 10/22/24 11:33 10/22/24 04:15 10/22/24 11:33
Intake & Output
10/20/24 10/21/24 10/22/24 10/23/24
06:59 06:59 06:59 06:59
Intake Total 480 / 480 250 / 250 100 / 100
Output Total 6200 / 6200 1050 / 1050 5550 / 5550
Balance -5720 / -5720 -800 / -800 -5450 / -5450
Physical Exam
Physical Exam
Gen: AAO x3
HEENT: MMM
Lungs: RA, no wheeze
Card: SR on tele
Abd: ND
Ext: No LE edema
Skin: Warm, dry
Neuro: Non-focal
: CBI running
--- NOTE | 2024-10-22 12:09 | PTCARENOTE ---
Pt received this am with no c/o of any pain or sob. CBI infusing as ordered. Urine clear pink with no clots noted. Pt assisted oob to the chair, gait steady. Tolerated oob for 2 hours.
--- NOTE | 2024-10-22 13:46 | CM ---
CM following for DC planning needs.
Met w/ patient at bedside. Pt. reports that he feels well; admits that he has been through a lot during hospitalization and has much still to come. Emotional support provided.
DC plan will depend on needs at time of DC.
Will follow closely.
Goal is for home once stable, no antic. needs.
[2024-10-22 15:24] VITALS: BP 122/88
[2024-10-22 15:55] LABS: Hematocrit 33.1 % (39.0-52.0); Hemoglobin 10.8 g/dL (13.0-18.0)
[2024-10-22 16:12] LABS: Blood Urea Nitrogen 38 mg/dl (9-20); Calcium 8.2 mg/dl (8.4-10.2); Carbon Dioxide 25 mmol/L (22-30); Chloride 107 mmol/L (98-107); Estimated Creatinine Clearance 28 ml/min; Glucose 174 mg/dl (70-99); Potassium 4.6 mmol/L (3.5-5.1); Sodium 141 mmol/L (135-145); eGFR 30.85
[2024-10-22] MEDS: TYLENOL 650 MG PO (17:54)
[2024-10-22 19:12] VITALS: BP 113/58
[2024-10-22] MEDS: MYLICON 80 MG PO (19:18)
--- NOTE | 2024-10-22 19:54 | W.PN.UPDATE ---
Update Note
Progress Note Update
pt seen again this evening
urine pink to maber
some drop in hgb
cr is rising
reviewed with pt- then at bedside
will track hgb- transfuse prn in short term
if cr up tomorrow- will need ct to invesitgate possible ureteral compromise and need for percs
--- NOTE | 2024-10-22 20:29 | PTCARENOTE ---
Pt seen by Dr Delarosa at change of shift. Pt to be kept npo after mn for non contrast Ct in am. CBI infusing at present with no obvious bleeding noted CBI continued. Pt did c/o feeling gassy, medicated with Mylicon.
[2024-10-22 22:15] VITALS: BP 130/63
[2024-10-22 23:58] LABS: Hematocrit 34.3 % (39.0-52.0); Hemoglobin 10.8 g/dL (13.0-18.0)
[2024-10-23 04:38] VITALS: BP 142/77
--- NOTE | 2024-10-23 04:45 | PTCARENOTE ---
Urine remains gavino via CBI [address] way recinos. Pt's only complaint at present is 'feeling bloated, not gassy'
[2024-10-23 05:09] LABS: Hematocrit 32.9 % (39.0-52.0); Hemoglobin 10.7 g/dL (13.0-18.0); Mean Corp Hgb Conc. 32.5 g/dL (33.0-37.0); Mean Corpuscular Hgb 30.1 pg (27.0-31.0); Mean Corpuscular Volume 92.4 fL (80.0-94.0); Mean Platelet Volume 9.1 fL (7.4-10.4); Platelet Count 207 10^3/uL (130-400); Red Blood Cell Count 3.56 10^6/uL (4.70-6.10); Red Cell Dist. Width 13.5 % (11.5-14.5); White Blood Cell Count 12.2 10^3/uL (4.8-10.8)
[2024-10-23 05:36] LABS: ALT (SGPT) 18 U/L (0-50); AST (SGOT) 19 U/L (17-59); Albumin 3.2 g/dl (3.5-5.0); Alkaline Phosphatase 83 U/L (38-126); Blood Urea Nitrogen 35 mg/dl (9-20); Carbon Dioxide 23 mmol/L (22-30); Chloride 111 mmol/L (98-107); Estimated Creatinine Clearance 28 ml/min; Glucose 105 mg/dl (70-99); Magnesium 2.3 mg/dl (1.6-2.3); Potassium 4.5 mmol/L (3.5-5.1); Sodium 142 mmol/L (135-145); Total Bilirubin 0.7 mg/dl (0.2-1.3); Total Protein 5.4 g/dl (6.3-8.2); eGFR 30.85
[2024-10-23 06:00] VITALS: BMI 32.5
--- NOTE | 2024-10-23 07:08 | W.PN.URO.CBU ---
Today's Communication / Plan
-
trend hematuria and cr level
Assessment / Plan
-
gross hematuria for 3 months
? UTI
sig BPH
BLADDER TUMOR
left hydro- suspected due to BPH
CAD with GA
very difficult procedure yesterday due to siz of pt's prostate
large tumor noted- due to prostate size could only be partially resected
left UO not identified
pt's hematuria seems to be slowly clearing- hgb stable- will observe for now with hope in next 2-48hrs can stop cbi and then remove recinos for TOV
in terms of CR- has stabilized- possibly due to ureteral edema/obstruction from recent procedure- given stabilization- will observe to see if now returns to baseline- if not CT and consideration of PERCs
Diagnosis
-
Date of Service: October 23, 2024
-
Patient Diagnosis:
CAD
gross hematuria
BPH
Bladder Tumor
left hydro
s/p cysto/partial turbt and fulguration 10/21
Subjective
-
pt c/o of bloating
urine is clearing
hgb stabilized
cr 2.1- but now stable
Objective
-
Vital Signs
Temp Pulse Resp BP Pulse Ox
98.1 F 73 20 142/77 96
10/23/24 04:38 10/23/24 04:38 10/23/24 04:38 10/23/24 04:38 10/23/24 04:38
Intake and Output
10/22/24 10/23/24 10/24/24
06:59 06:59 06:59
Intake Total 100 / 100
Output Total 5550 / 5550 1000 / 1000
Balance -5450 / -5450 -1000 / -1000
Intake:
IV fluids (Total) 100 / 100
normosol 100 / 100
Output:
Urine, Recinos 3500 / 3500
True Urine Output from CBI 2049 1000 / 1000
Laboratory Results
10/23/24 04:31
10/23/24 04:31
Review of Systems
-
Constitutional: Fatigue
Respiratory: No Symptoms
Cardiac: No Symptoms
Abdomen/GI: Other (bloating)
: Other (occ bladder spasms)
Physical Exam
-
General - no acute distress
Abdomen - soft, non-tender
Genitalia - recinos in place
[2024-10-23 07:59] VITALS: BP 150/64
--- NOTE | 2024-10-23 08:15 | W.PN.CARDCBS ---
Addendum entered and electronically signed by Elías Abad DO 10/23/24 12:05:
I saw and examined the patient.
The Mandarin Tutor's note was reviewed and I agree with the note.
Comment:
Patient seen and examined. Acute events were noted patient resting up in the bed. Patient denies any chest pain, shortness of breath lightheadedness, dizziness, near-syncope, syncope, PND, orthopnea, edema, or weakness. Patient with ongoing CBI.
Telemetry sinus rhythm.
A/P as below
Remains elevated risk for procedure due to unrevascularized CAD. Continue ASA, statin, CCB, BB for medical management. ARB on hold 2/2 renal function
Possible intervention/Mass management per urology
Eventual CAD reassessment/intervention when stable from uro standpoint
Original Note:
Today's Communication / Plan
-
Continue aspirin 81mg daily
CAD being medically managed.
Continue Toprol and nifedipine
Impression / Plan
-
PCP: Ingrid Chan affiliated with [facility]
Special Education Kindergarten Teacher: None, initially seen by Michelle
Assessment:
NSTEMI, peak Troponin 0.436
Chest pain
CAD
noncritical but obstructive prox to mid LAD lesions and 60-70% mid RCA lesion by cath 10/19/24
REDDY
HTN
HLD
BPH
Bladder tumor seen on cysto 10/17/24
Prostatomegaly with intractable gross hematuria
Echo 10/19/24: EF 55 to 60%, normal RV size and function, mild peak/mean 23/11 mmHg, trace aortic regurgitation, no pericardial effusion
C 10/19/2024: Left main: Minimal luminal irregularities. LAD: Diffuse 50 to 60% stenosis in the proximal LAD spanning across the takeoff of the diagonal branch which was borderline by IFR at 0.89, otherwise minimal luminal irregularities. LCx:
Minimal luminal irregularities. RCA: Mid RCA has a focal 60 to 70% stenosis surrounded by small aneurysmal area which makes it difficult to rule out a more significant lesion. Otherwise mild diffuse atherosclerotic plaque. LVEDP 14 mmHg
Plan:
-Presented with dyspnea and chest discomfort. Admitted with NSTEMI, trop peaking at 0.436.
-Cardiac cath 10/19/2024 revealed noncritical but obstructive CAD in proximal to mid LAD w/ 60-70% stenosis in the mid RCA.
-Plan is for medical management of CAD due to hematuria and bladder tumor seen on cysto 10/17/24. Continue aspirin 81mg daily.
-Echo 10/19 with preserved EF and mild as noted above.
-Remains chest pain free.
-Urology following. Creat stable overnight at 2.1. Hematuria appears to be improving. Hgb stable at 10.7.
-Hopeful to stop CBI within next day or so and remove recinos for TOV.
-BP stable. Continue Toprol and nifedipine. OP Losartan on hold w/ creat up to 2.1.
-Lipitor increased to 40mg daily. LDL 56.
-ECG stable 10/22, SR with 1st degree AV block.
-Patient did not have a middle school band teacher prior to admission, will arrange follow up.
Progress Note - Special Education Kindergarten Teacher
Subjective
Date of Service: October 23, 2024
No chest pain.
Objective
Labs:
10/23/24 04:31
10/23/24 04:31
Labs
Hgb 10.7 g/dL (13.0-18.0) L 10/23/24 04:31
Hct 32.9 % (39.0-52.0) L 10/23/24 04:31
Plt Count 207 10^3/uL (130-400) 10/23/24 04:31
PT 14.0 Sec (11.4-14.6) 10/17/24 10:50
INR 1.05 10/17/24 10:50
APTT Cancelled 10/19/24 13:00
Sodium 142 mmol/L (135-145) 10/23/24 04:31
Potassium 4.5 mmol/L (3.5-5.1) 10/23/24 04:31
BUN 35 mg/dl (9-20) H 10/23/24 04:31
Creatinine 2.1 mg/dL (0.7-1.3) H 10/23/24 04:31
Glucose 105 mg/dl (70-99) H 10/23/24 04:31
Vital Signs and I&O:
Vital Signs
Temp Pulse Resp BP Pulse Ox
97.9 F 73 20 142/77 92
10/23/24 07:58 10/23/24 04:38 10/23/24 07:58 10/23/24 04:38 10/23/24 07:58
Vital Signs
Temp Pulse Resp BP Pulse Ox
97.9 F 73 20 142/77 92
10/23/24 07:58 10/23/24 04:38 10/23/24 07:58 10/23/24 04:38 10/23/24 07:58
Intake & Output
10/21/24 10/22/24 10/23/24 10/24/24
06:59 06:59 06:59 06:59
Intake Total 250 / 250 100 / 100 960 / 960
Output Total 1050 / 1050 5550 / 5550 1000 / 1000 100 / 100
Balance -800 / -800 -5450 / -5450 -1000 / -1000 860 / 860
Physical Exam
Physical Exam
GEN: No distress, awake, alert, oriented x3
HEENT: supple, anicteric, mmm
LUNGS: CTA b/l, no wheezes/rales
CV: Reg, S1/S2, no murmur
EXT: No clubbing, cyanosis, or edema
NEURO: Gross non-focal
SKIN: Warm, dry, no rash
[2024-10-23] MEDS: HYTRIN 5 MG PO (09:45)
[2024-10-23] MEDS: LIPITOR 40 MG PO (09:45)
[2024-10-23] MEDS: LOW STRENGTH ASPIRIN 81 MG PO (09:45)
[2024-10-23] MEDS: PROCARDIA XL (EXTENDED RELEASE) 30 MG PO (09:45)
[2024-10-23] MEDS: TOPROL XL 25 MG PO (09:45)
[2024-10-23] MEDS: PROSCAR 5 MG PO (09:46)
[2024-10-23] MEDS: SENOKOT-S 1 TABLET PO ×2 (10:50→20:48)
[2024-10-23] MEDS: STERILE WATER FOR INJECTION 10 ML IV (10:50)
[2024-10-23] MEDS: NSS 1000 IV ×2 (10:50→23:53)
[2024-10-23] MEDS: ROCEPHIN 1000 MG IV (10:50)
[2024-10-23 11:03] VITALS: BP 128/65
--- NOTE | 2024-10-23 11:22 | W.PN.HOSP.TC ---
Today's Communication/Plan
-
Monitor H&H renal function
CBI as per urology
cont medical mgmt CAD as per Cardio, ASA statin Metoprolol CCB
IVF
Assessment / Plan
Assessment / Plan
Physical Exam
General: no acute distress, appears comfortable
CVS: S1-S2 normal, systolic murmur 4/6
Chest: CTA B/L
Abdomen: Soft, Bowel sounds present, mild left lower quadrant/flank tenderness noted
Extremities: No edema
: clear urine in recinos
COMMUNICATION PROFESSOR: AOx3
84-year-old male presented to the hospital with chest pain and shortness of breath.
CT abdomen and pelvis-mild left hydronephrosis and severe left hydroureter. Small simple left renal cyst. Gallstones. Mild fecal material in the colon. Severe prostatic hypertrophy.
10/19/2024-left heart catheterization-noncritical but obstructive coronary artery disease in the proximal to mid LAD with borderline positive IFR. At least moderate 60 to 70% stenosis in the mid RCA.
10/19/[id number] LV size and systolic function without regional wall motion abnormalities. EF 55 to 60%. Normal RV size and function. Trace AI. Mild
# Chest pain from non-STEMI
Obstructive but noncritical coronary artery disease per
Continue aspirin, as needed sublingual nitro, statin, beta-blockers and heparin drip
Echo as above
Cath results as above
heparin gtt completed
Cardio eval appreciated, cont medical mgmt w ASA statin BB CCB
# Acute kidney injury-creatinine improving, with dye exposure watch creatinine for contrast-induced nephropathy
#Suspect underlying CKD3, Cr improved consistently 1.5
#SHIRA later reoccurred following cystoscopy as below Cr sheila to 2.1
cont IVF
monitor renal function
possible ureteral compromise as per Urology, possible need for percutaneous nephrostomy tube if Cr cont to worsen
# Hematuria. Severe prostatic hypertrophy on CAT scan patient has had hematuria for 3 months. Left hydronephrosis hopefully will improve with Recinos catheter. Continue ceftriaxone as per Urology
occasionally required hand irrigation
urology eval appreciated, cont CBI, Cystoscopy completed 10/21 bladder tumor partially resected d/t interference from large prostate
# Hyperlipidemia-continue statin
# Enlarged prostate-on dutasteride and terazosin as outpatient
# Hypertension-holding losartan secondary to acute kidney injury. Continue nifedipine, metoprolol 25 mg daily added tolerating
# DVT prophylaxis-SCDs
# Full code
Stable for downgrade to Telemetry
I spent a total of 45 minutes with the patient or on the floor. More than 50% of this time involved counseling and coordination of care.
Anticipated Discharge: 24 - 48 hours
Subjective/Interval History
-
Date of Service: October 23, 2024
No acute distress, hematuria appears resolved at this time. Patient reports overall feeling well. Noted discomfort from hard stools, laxatives started.
Objective Data
-
Labs:
Laboratory Results
10/22/24 10/23/24
23:33 04:31
WBC 12.2 H
Hgb 10.8 L 10.7 L
Hct 34.3 L 32.9 L
Plt Count 207
Sodium 142
Potassium 4.5
Chloride 111 H
Carbon Dioxide 23
BUN 35 H
Creatinine 2.1 H
Glucose 105 H
Calcium 8.0 L
Total Bilirubin 0.7
AST 19
ALT 18
Alkaline Phosphatase 83
Vital Signs:
Vital Signs
Temp Pulse Resp BP Pulse Ox
98 F 78 20 150/64 92
10/23/24 11:02 10/23/24 09:45 10/23/24 11:02 10/23/24 09:45 10/23/24 11:02
I&O
10/22/24 10/23/24 10/24/24
06:59 06:59 06:59
Intake Total 100 / 100 960 / 960
Output Total 5550 / 5550 1000 / 1000 3900 / 3900
Balance -5450 / -5450 -1000 / -1000 -2940 / -2940
--- NOTE | 2024-10-23 12:54 | CM ---
CM following for DC planning needs.
Met w/ patient at bedside. He reports that he feels well. We reviewed DC plan. Pt. anticipates home without needs. At this time, he is not interested in VN.
Plan i s for home, no needs.
Will follow.
[2024-10-23 16:35] VITALS: BP 136/69
--- NOTE | 2024-10-23 19:15 | PTCARENOTE ---
pt continues to be sr on the monitor, hr in the 70s, vss. pt offers no complaints at this time. CBI running per documentation. pt and family educated on plan of care and pt verbalized understanding. pt ambulated throughout the day and tolerated
well. call roth within reach.
[2024-10-23 19:18] VITALS: BP 131/64
[2024-10-23 22:40] VITALS: BP 138/67
[2024-10-24] VITALS (7 sets, daily range): BP systolic 103–164; BP diastolic 43–78; BMI 32.7
[2024-10-24 05:22] LABS: Hematocrit 31.7 % (39.0-52.0); Hemoglobin 10.3 g/dL (13.0-18.0); Mean Corp Hgb Conc. 32.5 g/dL (33.0-37.0); Mean Corpuscular Hgb 29.8 pg (27.0-31.0); Mean Corpuscular Volume 91.6 fL (80.0-94.0); Mean Platelet Volume 8.9 fL (7.4-10.4); Platelet Count 203 10^3/uL (130-400); Red Blood Cell Count 3.46 10^6/uL (4.70-6.10); Red Cell Dist. Width 13.7 % (11.5-14.5); White Blood Cell Count 11.2 10^3/uL (4.8-10.8)
[2024-10-24 05:41] LABS: ALT (SGPT) 21 U/L (0-50); AST (SGOT) 24 U/L (17-59); Albumin 3.1 g/dl (3.5-5.0); Alkaline Phosphatase 78 U/L (38-126); Blood Urea Nitrogen 32 mg/dl (9-20); Calcium 7.7 mg/dl (8.4-10.2); Carbon Dioxide 20 mmol/L (22-30); Chloride 111 mmol/L (98-107); Estimated Creatinine Clearance 32 ml/min; Glucose 94 mg/dl (70-99); Magnesium 2.4 mg/dl (1.6-2.3); Potassium 4.4 mmol/L (3.5-5.1); Sodium 141 mmol/L (135-145); Total Bilirubin 0.9 mg/dl (0.2-1.3); Total Protein 5.4 g/dl (6.3-8.2); eGFR 34.79
--- NOTE | 2024-10-24 07:20 | W.PN.HOSP.TC ---
Today's Communication/Plan
-
Stable for downgrade to Tele
Monitor H&H renal function
CBI clamp possible trial of void as per urology
cont medical mgmt CAD as per Cardio, metoprolol increased
IVF
Assessment / Plan
Assessment / Plan
Physical Exam
General: no acute distress, appears comfortable
CVS: S1-S2 normal, systolic murmur 02/14
Chest: CTA B/L
Abdomen: Soft, Bowel sounds present
Extremities: No edema
: clear urine in recinos
HEAVY EQUIPMENT FIELD MECHANIC: AOx3
84-year-old male presented to the hospital with chest pain and shortness of breath.
CT abdomen and pelvis-mild left hydronephrosis and severe left hydroureter. Small simple left renal cyst. Gallstones. Mild fecal material in the colon. Severe prostatic hypertrophy.
10/19/2024-left heart catheterization-noncritical but obstructive coronary artery disease in the proximal to mid LAD with borderline positive IFR. At least moderate 60 to 70% stenosis in the mid RCA.
10/19/[id number] LV size and systolic function without regional wall motion abnormalities. EF 55 to 60%. Normal RV size and function. Trace AI. Mild
# Chest pain from non-STEMI
Obstructive but noncritical coronary artery disease per
Continue aspirin, as needed sublingual nitro, statin, beta-blockers and heparin drip
Echo as above
Cath results as above
heparin gtt completed
Cardio eval appreciated, cont medical mgmt w ASA statin BB CCB
# Acute kidney injury-creatinine improving, with dye exposure watch creatinine for contrast-induced nephropathy
#Suspect underlying CKD3, Cr improved consistently 1.5
#SHIRA later reoccurred following cystoscopy as below Cr sheila to 2.1
cont IVF
monitor renal function
possible ureteral compromise as per Urology, possible need for percutaneous nephrostomy tube if Cr cont to worsen, currently improving/trending down
# Hematuria. Severe prostatic hypertrophy on CAT scan patient has had hematuria for 3 months. Left hydronephrosis hopefully will improve with Recinos catheter. Continue ceftriaxone as per Urology
occasionally required hand irrigation
urology eval appreciated Cystoscopy completed 10/21 bladder tumor partially resected d/t interference from large prostate, CBI clamped possible trial of void
#Hypocalcemia
monitor and replete as necessary
# Hyperlipidemia-continue statin
# Enlarged prostate-on dutasteride and terazosin as outpatient
# Hypertension-holding losartan secondary to acute kidney injury. Continue nifedipine, metoprolol increased to 50 mg daily as per cardio
# DVT prophylaxis-SCDs
# Full code
Stable for downgrade to Telemetry
I spent a total of 45 minutes with the patient or on the floor. More than 50% of this time involved counseling and coordination of care.
Anticipated Discharge: 24 - 48 hours
Subjective/Interval History
-
Date of Service: October 24, 2024
No acute distress. Overall reports feeling well. Hematuria resolved, CBI clamped
Objective Data
-
Labs:
Laboratory Results
10/24/24
05:00
WBC 11.2 H
Hgb 10.3 L
Hct 31.7 L
Plt Count 203
Sodium 141
Potassium 4.4
Chloride 111 H
Carbon Dioxide 20 L
BUN 32 H
Creatinine 1.9 H
Glucose 94
Calcium 7.7 L
Total Bilirubin 0.9
AST 24
ALT 21
Alkaline Phosphatase 78
Vital Signs:
Vital Signs
Temp Pulse Resp BP Pulse Ox
97.6 F 70 17 151/78 95
10/24/24 04:13 10/24/24 05:00 10/24/24 04:13 10/24/24 04:16 10/24/24 04:13
I&O
10/23/24 10/24/24 10/25/24
06:59 06:59 06:59
Intake Total 2550 / 2550
Output Total 1000 / 1000 5700 / 5700
Balance -1000 / -1000 -3150 / -3150
[2024-10-24] MEDS: HYTRIN 5 MG PO (07:59)
[2024-10-24] MEDS: LOW STRENGTH ASPIRIN 81 MG PO (07:59)
[2024-10-24] MEDS: LIPITOR 40 MG PO (07:59)
[2024-10-24] MEDS: TOPROL XL 25 MG PO (07:59)
[2024-10-24] MEDS: PROSCAR 5 MG PO (07:59)
[2024-10-24] MEDS: SENOKOT-S PO ×2 (08:00→19:25)
[2024-10-24] MEDS: OSCAL CAL 500 1000 MG PO ×2 (08:05→19:31)
[2024-10-24] MEDS: PROCARDIA XL (EXTENDED RELEASE) 30 MG PO (08:05)
--- NOTE | 2024-10-24 08:32 | W.PN.URO.CBU ---
Today's Communication / Plan
-
CBI clamped
Possible trial of void today
Assessment / Plan
-
84M with gross hematuria for 3 months
significant BPH
BLADDER TUMOR
left hydro- suspected due to BPH/ureteral reflux
CAD with IN
s/p TURBT and TURP - very difficult procedure due to siz of pt's prostate
large tumor noted- due to prostate size could only be partially resected
left UO not identified
Hematuria resolved and hgb stable
CBI clamped
Possible trial of void today
Creatinine has stabilized, SHIRA on CKD- possibly due to ureteral edema/obstruction from recent procedure- given stabilization- will observe to see if now returns to baseline- if not CT and consideration of PERCs
Diagnosis
-
Date of Service: October 24, 2024
-
Patient Diagnosis:
CAD
gross hematuria
BPH
Bladder Tumor
left hydro
s/p cysto/partial turbt and fulguration 10/21
Subjective
-
No problems overnight
Objective
-
Vital Signs
Temp Pulse Resp BP Pulse Ox
98 F 75 18 156/75 98
10/24/24 08:22 10/24/24 08:01 10/24/24 08:22 10/24/24 08:01 10/24/24 08:22
Intake and Output
10/23/24 10/24/24 10/25/24
06:59 06:59 06:59
Intake Total 2550 / 2550
Output Total 1000 / 1000 5700 / 5700 1000 / 1000
Balance -1000 / -1000 -3150 / -3150 -1000 / -1000
Intake:
Oral fluids 630 / 630
IV fluids (Total) 1920 / 1920
NSS 960 / 960
normosol 960 / 960
Output:
Urine, Recinos 1000 / 999
Urine, Voided 3800 / 3800
True Urine Output from CBI 1000 / 999 1900 / 1900
Laboratory Results
10/24/24 05:00
10/24/24 05:00
Physical Exam
-
General - well developed, well nourished, no acute distress
-recinos in place, clear on slow CBI
[2024-10-24 08:50] LABS: Vitamin D, 25-OH*** 35.6 ng/mL (30-80)
--- NOTE | 2024-10-24 08:58 | W.PN.CARDCBS ---
Addendum entered and electronically signed by Elías Abad DO 10/24/24 11:48:
I saw and examined the patient.
The Head Of Sales And Marketing's note was reviewed and I agree with the note.
Comment:
Patient seen and examined. No acute events overnight. Patient resting comfortably. Telemetry sinus rhythm.
A/P as below
Tolerating aspirin, no evidence hematuria.
Increasing beta-jerson in the setting of hypertension, ARB on hold due to SHIRA. Continue CCB.
Uribe management per urology
Monitor on telemetry
Original Note:
Today's Communication / Plan
-
Increase Toprol XL to 50 mg daily for HTN
Outpatient dose of losartan remains on hold for SHIRA
Tolerating aspirin
Impression / Plan
-
PCP: Ingrid Chan affiliated with [facility]
Retail Inventory Control Clerk: None, initially seen by Michelle
Assessment:
NSTEMI, peak Troponin 0.436
Chest pain
CAD
noncritical but obstructive prox to mid LAD lesions and 60-70% mid RCA lesion by cath 10/19/24
REDDY
HTN
HLD
BPH
Bladder tumor seen on cysto 10/17/24
Prostatomegaly with intractable gross hematuria
Echo 10/19/24: EF 55 to 60%, normal RV size and function, mild peak/mean 23/11 mmHg, trace aortic regurgitation, no pericardial effusion
C 10/19/2024: Left main: Minimal luminal irregularities. LAD: Diffuse 50 to 60% stenosis in the proximal LAD spanning across the takeoff of the diagonal branch which was borderline by IFR at 0.89, otherwise minimal luminal irregularities. LCx:
Minimal luminal irregularities. RCA: Mid RCA has a focal 60 to 70% stenosis surrounded by small aneurysmal area which makes it difficult to rule out a more significant lesion. Otherwise mild diffuse atherosclerotic plaque. LVEDP 14 mmHg
Plan:
-Urology note reviewed. Cre improving and plan is to clamp Uribe 10/24/24 and pending outcome might need perc tubes vs attempt at voiding trial .
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
-Plan is for medical management of CAD after presented with NSTEMI due to issues as above 10/17/24.
-Continue aspirin 81mg daily which was a new med this admission
-Will not attempt DAPT due to hematuria and ongoing issues as noted
-Cont Toprol XL 25 mg daily which is new this admission. Will increase to 50 mg daily due to HTN on 10/24/24
-Outpatient dose of nifedipine ER 30 mg daily has been continued
-Outpatient dose of losartan 25 mg daily is on hold due to elevated Cre.
-Outpatient dose of atorvastatin increased to 40 mg daily for LDL 56.
Progress Note - Retail Inventory Control Clerk
Subjective
Date of Service: October 24, 2024
No chest pain
Objective
Labs:
10/24/24 05:00
10/24/24 05:00
Labs
Hgb 10.3 g/dL (13.0-18.0) L 10/24/24 05:00
Hct 31.7 % (39.0-52.0) L 10/24/24 05:00
Plt Count 203 10^3/uL (130-400) 10/24/24 05:00
PT 14.0 Sec (11.4-14.6) 10/17/24 10:50
INR 1.05 10/17/24 10:50
APTT Cancelled 10/19/24 13:00
Sodium 141 mmol/L (135-145) 10/24/24 05:00
Potassium 4.4 mmol/L (3.5-5.1) 10/24/24 05:00
BUN 32 mg/dl (9-20) H 10/24/24 05:00
Creatinine 1.9 mg/dL (0.7-1.3) H 10/24/24 05:00
Glucose 94 mg/dl (70-99) 10/24/24 05:00
Vital Signs and I&O:
Vital Signs
Temp Pulse Resp BP Pulse Ox
98 F 75 18 156/75 98
10/24/24 08:22 10/24/24 08:01 10/24/24 08:22 10/24/24 08:01 10/24/24 08:22
Vital Signs
Temp Pulse Resp BP Pulse Ox
98 F 75 18 156/75 98
10/24/24 08:22 10/24/24 08:01 10/24/24 08:22 10/24/24 08:01 10/24/24 08:22
Intake & Output
10/22/24 10/23/24 10/24/24 10/25/24
06:59 06:59 06:59 06:59
Intake Total 100 / 100 2550 / 2550
Output Total 5550 / 5550 1000 / 1000 5700 / 5700 1000 / 1000
Balance -5450 / -5450 -1000 / -1000 -3150 / -3150 -1000 / -1000
Physical Exam
Physical Exam
Gen: AAO x3
HEENT: MMM
Lungs: RA, no wheeze
Card: SR on tele
Abd: ND
Ext: No LE edema
Skin: Warm, dry
Neuro: Non-focal
[2024-10-24] MEDS: ROCEPHIN 1000 MG IV (10:47)
[2024-10-24] MEDS: STERILE WATER FOR INJECTION 10 ML IV (10:49)
[2024-10-24] MEDS: NSS IV (17:45)
--- NOTE | 2024-10-24 18:00 | PTCARENOTE ---
Pt received this am with no c/o of any pain or sob. CBI infusing as ordered. Urine clear yellow. Pt assisted oob to the bathroom, gait steady. Uribe and CBI discontinued at 1430. Pt voided 50ml of pink urine at 1800.
[2024-10-24] MEDS: NSS 1000 IV (19:31)
--- NOTE | 2024-10-25 00:03 | PTCARENOTE ---
Pt. received at change of shift. Pt. seen and assessed in room. Pt. AOx3, tele reading NSR. Patient bladder scanned at 8pm and documented. Pt. voiding post bladder scan. RN verbalizes plan of care. Pt. verbalizes understanding. Call roth within
reach. Continuing to monitor at this time.
[2024-10-25 04:15] VITALS: BP 149/76
[2024-10-25 04:18] VITALS: BMI 32.6
[2024-10-25 04:38] VITALS: BMI 32.6
[2024-10-25 04:53] LABS: Hematocrit 33.9 % (39.0-52.0); Mean Corp Hgb Conc. 32.4 g/dL (33.0-37.0); Mean Corpuscular Hgb 29.6 pg (27.0-31.0); Mean Corpuscular Volume 91.1 fL (80.0-94.0); Mean Platelet Volume 8.9 fL (7.4-10.4); Platelet Count 211 10^3/uL (130-400); Red Blood Cell Count 3.72 10^6/uL (4.70-6.10); Red Cell Dist. Width 13.6 % (11.5-14.5); White Blood Cell Count 11.6 10^3/uL (4.8-10.8)
[2024-10-25 05:19] LABS: Blood Urea Nitrogen 35 mg/dl (9-20); Calcium 8.6 mg/dl (8.4-10.2); Carbon Dioxide 22 mmol/L (22-30); Chloride 109 mmol/L (98-107); Estimated Creatinine Clearance 30 ml/min; Glucose 107 mg/dl (70-99); Magnesium 2.3 mg/dl (1.6-2.3); Phosphorus 3.2 mg/dl (2.5-4.5); Potassium 4.5 mmol/L (3.5-5.1); Sodium 140 mmol/L (135-145); eGFR 32.71
[2024-10-25] MEDS: Pyridium 200 MG PO (06:15)
--- NOTE | 2024-10-25 07:16 | W.PN.HOSP.TC ---
Today's Communication/Plan
-
remains Stable for downgrade to Tele
Monitor H&H renal function
Failed trial of void, Recinos replaced
cont medical mgmt CAD as per Cardio, metoprolol increased
IVF
Assessment / Plan
Assessment / Plan
Physical Exam
General: no acute distress, appears comfortable
CVS: S1-S2 normal, systolic murmur 02/14
Chest: CTA B/L
Abdomen: Soft, Bowel sounds present
Extremities: No edema
DIAL LATHE OPERATOR: AOx3
Psych: Calm
84M HTN BPH here for NSTEMI hematuria bladder ca
CT abdomen and pelvis-mild left hydronephrosis and severe left hydroureter. Small simple left renal cyst. Gallstones. Mild fecal material in the colon. Severe prostatic hypertrophy.
10/19/2024-left heart catheterization-noncritical but obstructive coronary artery disease in the proximal to mid LAD with borderline positive IFR. At least moderate 60 to 70% stenosis in the mid RCA.
10/19/[id number] LV size and systolic function without regional wall motion abnormalities. EF 55 to 60%. Normal RV size and function. Trace AI. Mild
# Chest pain from non-STEMI
Obstructive but noncritical coronary artery disease per
Continue aspirin, as needed sublingual nitro, statin, beta-blockers and heparin drip
Echo as above
Cath results as above
heparin gtt completed
Cardio eval appreciated, cont medical mgmt w ASA statin BB CCB
# Acute kidney injury-creatinine improving, with dye exposure watch creatinine for contrast-induced nephropathy
#Suspect underlying CKD3, Cr improved consistently 1.5
#SHIRA later reoccurred following cystoscopy as below Cr sheila to 2.1
cont IVF
monitor renal function
possible ureteral compromise as per Urology, possible need for percutaneous nephrostomy tube if Cr cont to worsen, was improving but improvement stalled after recinos discontinuation, acute retention noted, Recinos since replaced, Follow up CT in AM as
per urology
# Hematuria. Severe prostatic hypertrophy on CAT scan patient has had hematuria for 3 months. Left hydronephrosis hopefully will improve with Recinos catheter. Continue ceftriaxone as per Urology
occasionally required hand irrigation
urology eval appreciated Cystoscopy completed 10/21 bladder tumor partially resected d/t interference from large prostate, CBI clamped possible trial of void
#Hypocalcemia
monitor and replete as necessary
# Hyperlipidemia-continue statin
# Enlarged prostate-on dutasteride and terazosin as outpatient
# Hypertension-holding losartan secondary to acute kidney injury. Continue nifedipine, metoprolol increased to 50 mg daily as per cardio
# DVT prophylaxis-SCDs
# Full code
Stable for downgrade to Telemetry
I spent a total of 45 minutes with the patient or on the floor. More than 50% of this time involved counseling and coordination of care.
Anticipated Discharge: 24 - 48 hours
Subjective/Interval History
-
Date of Service: October 25, 2024
Reports dysuria hesitancy/retention since Recinos removal. Otherwise no acute distress. Appears comfortable at this time.
Objective Data
-
Labs:
Laboratory Results
10/25/24
04:28
WBC 11.6 H
Hgb 11.0 L
Hct 33.9 L
Plt Count 211
Sodium 140
Potassium 4.5
Chloride 109 H
Carbon Dioxide 22
BUN 35 H
Creatinine 2.0 H
Glucose 107 H
Calcium 8.6
Vital Signs:
Vital Signs
Temp Pulse Resp BP Pulse Ox
98.1 F 67 20 149/76 95
10/25/24 04:18 10/25/24 05:00 10/25/24 04:18 10/25/24 04:15 10/25/24 04:18
I&O
10/24/24 10/25/24 10/26/24
06:59 06:59 06:59
Intake Total 2550 / 2550 500 / 500
Output Total 5700 / 5700 1850 / 1850
Balance -3150 / -3150 -1350 / -1350
[2024-10-25 07:31] VITALS: BP 196/76
[2024-10-25] MEDS: LOW STRENGTH ASPIRIN 81 MG PO (07:42)
[2024-10-25] MEDS: PROSCAR 5 MG PO (07:42)
[2024-10-25] MEDS: TOPROL XL 50 MG PO (07:42)
[2024-10-25] MEDS: PROCARDIA XL (EXTENDED RELEASE) 30 MG PO (07:42)
[2024-10-25] MEDS: HYTRIN 5 MG PO (07:42)
[2024-10-25] MEDS: SENOKOT-S 1 TABLET PO (07:42)
[2024-10-25] MEDS: LIPITOR 40 MG PO (07:42)
[2024-10-25 12:01] VITALS: BP 155/65
--- NOTE | 2024-10-25 12:32 | W.PN.URO.CBU ---
Today's Communication / Plan
-
Replace recinos
CT tomorrow AM
Assessment / Plan
-
84M with gross hematuria for 3 months
significant BPH
BLADDER TUMOR
left hydro- suspected due to BPH/ureteral reflux
CAD with [place]
s/p TURBT and TURP - very difficult procedure due to siz of pt's prostate
large tumor noted- due to prostate size could only be partially resected
left UO not identified
- Hematuria resolved and hgb stable
- Recinos removed 10/24 but with worsening symptomatic urinary hesitancy/retention, PVR to 700cc today
- Replace ercinos
- Creatinine has stabilized, but not improving and significantly above baseline. Possible left ureteral obstruction though reflux considered more likely
- Recommend CT 10/26 in AM after recinos replacement today to reassess hydronephrosis
Diagnosis
-
Date of Service: October 25, 2024
-
Patient Diagnosis:
CAD
gross hematuria
BPH
Bladder Tumor
left hydro
s/p cysto/partial turbt and fulguration 10/21
Subjective
-
Difficulty voiding with hesitancy, frequency, slow stream since recinos removed
PVR 250cc last night
PVR 700cc today
Objective
-
Vital Signs
Temp Pulse Resp BP Pulse Ox
97.5 F 67 20 149/76 95
10/25/24 11:59 10/25/24 05:00 10/25/24 11:59 10/25/24 04:15 10/25/24 11:59
Intake and Output
10/24/24 10/25/24 10/26/24
06:59 06:59 06:59
Intake Total 2550 / 2550 500 / 500
Output Total 5700 / 5700 1850 / 1850
Balance -3150 / -3150 -1350 / -1350
Intake:
Oral fluids 630 / 630 340 / 340
IV fluids (Total) 192 / 1920 160 / 160
NSS 960 / 960 160 / 160
normosol 960 / 960
Output:
Urine, Recinos 1000 / 1000
Urine, Voided 3800 / 3800 850 / 850
True Urine Output from CBI 1899
Laboratory Results
10/25/24 04:28
10/25/24 04:28
Physical Exam
-
General - well developed, well nourished, no acute distress
Chest - clear
Abdomen - soft, non-tender, obese
Skin - warm & dry with no rash
--- NOTE | 2024-10-25 14:49 | W.PN.CARDCBS ---
Today's Communication / Plan
-
Continue aspirin and Toprol-XL 50 mg daily
Telemetry monitoring
Impression / Plan
-
PCP: Ingrid Chan affiliated with [facility]
Manager Lan: None, initially seen by Michelle
Assessment:
NSTEMI, peak Troponin 0.436
Chest pain
CAD
noncritical but obstructive prox to mid LAD lesions and 60-70% mid RCA lesion by cath 10/19/24
REDDY
HTN
HLD
BPH
Bladder tumor seen on cysto 10/17/24
Prostatomegaly with intractable gross hematuria
Echo 10/19/24: EF 55 to 60%, normal RV size and function, mild peak/mean 23/11 mmHg, trace aortic regurgitation, no pericardial effusion
LHC 10/19/2024: Left main: Minimal luminal irregularities. LAD: Diffuse 50 to 60% stenosis in the proximal LAD spanning across the takeoff of the diagonal branch which was borderline by IFR at 0.89, otherwise minimal luminal irregularities. LCx:
Minimal luminal irregularities. RCA: Mid RCA has a focal 60 to 70% stenosis surrounded by small aneurysmal area which makes it difficult to rule out a more significant lesion. Otherwise mild diffuse atherosclerotic plaque. LVEDP 14 mmHg
Plan:
-Urology note reviewed. Cre improving and plan is to clamp Uribe 10/24/24 and pending outcome might need perc tubes vs attempt at voiding trial .
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
-Plan is for medical management of CAD after presented with NSTEMI due to issues as above 10/17/24.
-Continue aspirin 81mg daily which was a new med this admission
-Will not attempt DAPT due to hematuria and ongoing issues as noted
-Tolerating Toprol-XL 50 mg daily. BP still noted to be mildly elevated
-Outpatient dose of nifedipine ER 30 mg daily has been continued
-Outpatient dose of losartan 25 mg daily is on hold due to elevated Cre.
-Outpatient dose of atorvastatin increased to 40 mg daily for LDL 56.
Progress Note - Manager Lan
Subjective
Date of Service: October 25, 2024
Patient seen and examined. No acute events overnight. Patient remains sinus rhythm on telemetry. Patient noting significant burning with urination. Denies chest pain, shortness of breath, palpitations, weakness.
Objective
Labs:
10/25/24 04:28
10/25/24 04:28
Labs
Hgb 11.0 g/dL (13.0-18.0) L 10/25/24 04:28
Hct 33.9 % (39.0-52.0) L 10/25/24 04:28
Plt Count 211 10^3/uL (130-400) 10/25/24 04:28
PT 14.0 Sec (11.4-14.6) 10/17/24 10:50
INR 1.05 10/17/24 10:50
APTT Cancelled 10/19/24 13:00
Sodium 140 mmol/L (135-145) 10/25/24 04:28
Potassium 4.5 mmol/L (3.5-5.1) 10/25/24 04:28
BUN 35 mg/dl (9-20) H 10/25/24 04:28
Creatinine 2.0 mg/dL (0.7-1.3) H 10/25/24 04:28
Glucose 107 mg/dl (70-99) H 10/25/24 04:28
Vital Signs and I&O:
Vital Signs
Temp Pulse Resp BP Pulse Ox
97.5 F 67 20 149/76 95
10/25/24 11:59 10/25/24 05:00 10/25/24 11:59 10/25/24 04:15 10/25/24 11:59
Vital Signs
Temp Pulse Resp BP Pulse Ox
97.5 F 67 20 149/76 95
10/25/24 11:59 10/25/24 05:00 10/25/24 11:59 10/25/24 04:15 10/25/24 11:59
Intake & Output
10/23/24 10/24/24 10/25/24 10/26/24
06:59 06:59 06:59 06:59
Intake Total 2550 / 2550 500 / 500
Output Total 1000 / 1000 5700 / 5700 1850 / 1850
Balance -1000 / -1000 -3150 / -3150 -1350 / -1350
Physical Exam
Physical Exam
Gen: AAO x3
HEENT: MMM
Lungs: RA, no wheeze
Card: SR on tele
Abd: ND
Ext: No LE edema
Skin: Warm, dry
Neuro: Non-focal
[2024-10-25 15:59] VITALS: BP 120/56
[2024-10-25] MEDS: NSS IV (17:50)
[2024-10-25 19:21] VITALS: BP 126/54
[2024-10-25] MEDS: SENOKOT-S PO (19:36)
--- NOTE | 2024-10-25 20:32 | PTCARENOTE ---
Pt. received at change of shift. Pt. seen and assessed in room. Pt. AOx3, NSR on tele. VS WNL. Indwelling recinos catheter in place. RN explained plan of care, pt. verbalizes understanding. Call roth within reach. Continuing to monitor at this time.
[2024-10-25] MEDS: NSS 1000 IV (21:32)
[2024-10-25 22:39] VITALS: BP 128/65
[2024-10-26 02:15] VITALS: BP 157/77
[2024-10-26] MEDS: PREPARATION H MAX STRENGTH PAIN RELIEF CREAM 1 APPLIC RECTAL ×4 (02:16→19:25)
[2024-10-26 02:42] VITALS: BMI 32.5
[2024-10-26 02:46] LABS: Hematocrit 30.3 % (39.0-52.0); Mean Corpuscular Hgb 29.2 pg (27.0-31.0); Mean Corpuscular Volume 88.3 fL (80.0-94.0); Mean Platelet Volume 8.6 fL (7.4-10.4); Platelet Count 199 10^3/uL (130-400); Red Blood Cell Count 3.43 10^6/uL (4.70-6.10); Red Cell Dist. Width 13.6 % (11.5-14.5); White Blood Cell Count 12.1 10^3/uL (4.8-10.8)
[2024-10-26 03:02] LABS: Blood Urea Nitrogen 32 mg/dl (9-20); Calcium 8.3 mg/dl (8.4-10.2); Carbon Dioxide 23 mmol/L (22-30); Chloride 109 mmol/L (98-107); Estimated Creatinine Clearance 32 ml/min; Glucose 99 mg/dl (70-99); Magnesium 2.3 mg/dl (1.6-2.3); Phosphorus 3.4 mg/dl (2.5-4.5); Potassium 4.5 mmol/L (3.5-5.1); Sodium 139 mmol/L (135-145); eGFR 34.79
[2024-10-26 07:51] VITALS: BP 150/63
[2024-10-26] MEDS: LOW STRENGTH ASPIRIN 81 MG PO (08:35)
[2024-10-26] MEDS: LIPITOR 40 MG PO (08:35)
[2024-10-26] MEDS: PROCARDIA XL (EXTENDED RELEASE) 30 MG PO (08:35)
[2024-10-26] MEDS: HYTRIN 5 MG PO (08:35)
[2024-10-26] MEDS: SENOKOT-S PO ×2 (08:36→22:08)
[2024-10-26] MEDS: TOPROL XL 50 MG PO (08:37)
[2024-10-26] MEDS: PROSCAR 5 MG PO (08:37)
[2024-10-26 11:44] VITALS: BP 123/63
--- NOTE | 2024-10-26 11:51 | CM ---
Reviewed chart. Met with Mr. Mauro to review discharge plans. He states is feeling okay. He states he has been ambulating in the room. Prior to admission he resides with his spouse and son in a two story home without any steps to enter. He has a
full flight of steps to get to bedroom/full bathroom. He has a powder room on the first floor. Prior to admission he was independent with ambulation and adls. He states he does not have any DME in the home. He states he has a prescription plan
and uses [facility]. Medical work-up in progress. The discharge plan is to return home with his spouse and son when medically stable.
[2024-10-26] MEDS: DILAUDID 0.5 MG IV (12:30)
--- NOTE | 2024-10-26 13:23 | W.PN.CARDCBS ---
Addendum entered and electronically signed by Madiha Tripathi MD 10/26/24 13:46:
I saw and examined the patient.
The Assembler [employer]'s note was reviewed and I agree with the note.
Comment: He is stable today from a cardiovascular point of view. His family is at the bedside. We discussed coronary artery disease. Continue aggressive risk factor modification and medical management of nonobstructive coronary disease. They
will let us know if any new symptoms noted. Cardiac exam stable without change.
We will sign off. Please reconsult us if new cardiac issues noted. Continue urologic assessment. We will make follow-up cardiac appointment.
Original Note:
Today's Communication / Plan
-
Will arrange cardiology f/u
Discharge instructions edited from a cardiac standpoint including E scribing of Toprol-XL, higher dose atorvastatin and NTG SL as needed
52 minutes [id number] and in coordination of care
Impression / Plan
-
PCP: Ingrid Chan affiliated with [facility]
Wall And Floor Tiler: None, initially seen by Michelle
Assessment:
NSTEMI, peak Troponin 0.436
Chest pain
CAD
noncritical but obstructive prox to mid LAD lesions and 60-70% mid RCA lesion by cath 10/19/24
REDDY
HTN
HLD
BPH
Bladder tumor seen on cysto 10/17/24
Prostatomegaly with intractable gross hematuria
Echo 10/19/24: EF 55 to 60%, normal RV size and function, mild peak/mean 23/11 mmHg, trace aortic regurgitation, no pericardial effusion
C 10/19/2024: Left main: Minimal luminal irregularities. LAD: Diffuse 50 to 60% stenosis in the proximal LAD spanning across the takeoff of the diagonal branch which was borderline by IFR at 0.89, otherwise minimal luminal irregularities. LCx:
Minimal luminal irregularities. RCA: Mid RCA has a focal 60 to 70% stenosis surrounded by small aneurysmal area which makes it difficult to rule out a more significant lesion. Otherwise mild diffuse atherosclerotic plaque. LVEDP 14 mmHg
Plan:
-Urology note reviewed and hematuria has improved. 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
could only be partially resected during procedure 10/21/2024.
-Plan is for medical management of CAD after presented with NSTEMI due to issues as above 10/17/24.
-Continue aspirin 81mg daily which was a new med this admission
-Will not attempt DAPT due to hematuria and ongoing issues as noted
-BPs reviewed and intermittent hypotension and normotension with occasional HTN readings. Cont Toprol XL 50 mg daily which was new this admission.
-Outpatient dose of nifedipine ER 30 mg daily has been continued
-Outpatient dose of losartan 25 mg daily is on hold due to elevated Cre. Cre improving but not back to baseline, will not restart at this time.
-Outpatient dose of atorvastatin increased to 40 mg daily for LDL 56.
-Will arrange cardiology f/u
Progress Note - Wall And Floor Tiler
Subjective
Date of Service: October 26, 2024
Patient reports he might be going home today
Objective
Labs:
10/26/24 02:34
10/26/24 02:34
Labs
Hgb 10.0 g/dL (13.0-18.0) L 10/26/24 02:34
Hct 30.3 % (39.0-52.0) L 10/26/24 02:34
Plt Count 199 10^3/uL (130-400) 10/26/24 02:34
PT 14.0 Sec (11.4-14.6) 10/17/24 10:50
INR 1.05 10/17/24 10:50
APTT Cancelled 10/19/24 13:00
Sodium 139 mmol/L (135-145) 10/26/24 02:34
Potassium 4.5 mmol/L (3.5-5.1) 10/26/24 02:34
BUN 32 mg/dl (9-20) H 10/26/24 02:34
Creatinine 1.9 mg/dL (0.7-1.3) H 10/26/24 02:34
Glucose 99 mg/dl (70-99) 10/26/24 02:34
Vital Signs and I&O:
Vital Signs
Temp Pulse Resp BP Pulse Ox
98.1 F 77 18 150/63 96
10/26/24 11:43 10/26/24 05:00 10/26/24 11:43 10/26/24 08:35 10/26/24 11:43
Vital Signs
Temp Pulse Resp BP Pulse Ox
98.1 F 77 18 150/63 96
10/26/24 11:43 10/26/24 05:00 10/26/24 11:43 10/26/24 08:35 10/26/24 11:43
Intake & Output
10/24/24 10/25/24 10/26/24 10/27/24
06:59 06:59 06:59 06:59
Intake Total 2550 / 2550 500 / 500
Output Total 5700 / 5700 1849 / 1849
Balance -3150 / -3150 -135 / -1350 -1974
Physical Exam
Physical Exam
Gen: AAO x3
HEENT: MMM
Lungs: RA, no wheeze
Card: SR on tele
Abd: ND
Ext: No LE edema
Skin: Warm, dry
Neuro: Non-focal
--- NOTE | 2024-10-26 13:31 | W.PN.URO.CBU ---
Today's Communication / Plan
-
restart cbi and observe
Assessment / Plan
-
84M with gross hematuria for 3 months
significant BPH
BLADDER TUMOR
left hydro- suspected due to BPH/ureteral reflux
CAD with [place]
s/p TURBT and TURP - very difficult procedure due to siz of pt's prostate
large tumor noted- due to prostate size could only be partially resected
left UO not identified
pt required recinos re-insertion yesterday for retention- urine was clear- now bloody due to recinos re-positioning- hopefully will clear
reviewed all findings with pt and at bedside and discussed with med team
if urine clears- plan to return to OR on wed for attempt at complete tumor resection and unroofing of left UO with stent
very high risk given recent [place] and anatomic factors- and again may not be successful in resection of tumor/relief of retention or unobstruction of left ureter- all these eventualities and contingencies reviewed
also discussed discharge with outpt f/u if bleeding resolved at tertiary care center
pt and would like to proceed her if able
will re-assess in am
continue med cardiac management/asa
Diagnosis
-
Date of Service: October 26, 2024
-
Patient Diagnosis:
CAD
gross hematuria
BPH
Bladder Tumor
left hydro
s/p cysto/partial turbt and fulguration 10/21
Subjective
-
pt's lab basically stable
urine WAS clear
had ct- stable left hydro- but recinos malpositioned in prostate- AT BEDSIDE- 3 WAY RECINOS REPLACED- URINE PINK- CBI RESTARTED
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
Objective
-
Vital Signs
Temp Pulse Resp BP Pulse Ox
98.1 F 77 18 150/63 96
10/26/24 11:43 10/26/24 05:00 10/26/24 11:43 10/26/24 08:35 10/26/24 11:43
Intake and Output
10/25/24 10/26/24 10/27/24
06:59 06:59 06:59
Intake Total 500 / 500
Output Total 1850 / 1850 1974
Balance -1350 / -1350 -1974
Intake:
Oral fluids 340 / 340
IV fluids (Total) 160 / 160
NSS 160 / 160
Output:
Urine, Recinos 1000 / 1000 1575 / 1575
Urine, Voided 850 / 850 400 / 400
Other:
Number of unmeasured liquid
stools
Rectum 1
Laboratory Results
10/26/24 02:34
10/26/24 02:34
Review of Systems
-
Constitutional: No Symptoms
Respiratory: No Symptoms
Cardiac: No Symptoms
Abdomen/GI: No Symptoms
: No Symptoms
Physical Exam
-
General - no acute distress
Abdomen - soft, non-tender
Genitalia - 3 way rec[address] back in place with cbi
--- NOTE | 2024-10-26 13:38 | PTCARENOTE ---
Pt sent for CT scan this AM, Dr Delarosa texted to say the Pt's catheter was not in correct place, according to CT scan. He came to see Pt and replaced the catheter. Pt had some bleeding, Dr Delarosa started CBI to clear the blood from bladder. Pt
having severe pain during this procedure. Dr Delarosa ordered Dilaudid 0.5 mg IV for pain, Pt reported relief.
[2024-10-26 14:59] VITALS: BP 106/47
[2024-10-26] MEDS: NSS 1000 IV (15:00)
--- NOTE | 2024-10-26 16:25 | W.PN.HOSP.TC ---
Today's Communication/Plan
-
CBI
Assessment / Plan
Assessment / Plan
84M HTN BPH here for NSTEMI hematuria bladder ca
CT abdomen and pelvis-mild left hydronephrosis and severe left hydroureter. Small simple left renal cyst. Gallstones. Mild fecal material in the colon. Severe prostatic hypertrophy.
10/19/2024-left heart catheterization-noncritical but obstructive coronary artery disease in the proximal to mid LAD with borderline positive IFR. At least moderate 60 to 70% stenosis in the mid RCA.
10/19/[id number] LV size and systolic function without regional wall motion abnormalities. EF 55 to 60%. Normal RV size and function. Trace AI. Mild
Repeat CT of the abdomen and pelvis 10/26/2024-recent TURP and TURBT. Uribe catheter with balloon of the Uribe appears to be within the region of the prostate. Enlargement of the prostate gland with transverse dimension 7.2 cm. Severe left
pelvicalyceal and ureteral dilatation extending to the left UV junction. Aortic valvular calcification. Cholelithiasis. Fatty liver
CVS: S1-S2 normal
Chest: CTA B/L
Abdomen: Soft, NT ,Bowel sounds present, Uribe with pink-colored urine
Extremities: No edema
# Chest pain from non-STEMI
Obstructive but noncritical coronary artery disease per cardiac cath
Continue aspirin, as needed sublingual nitro, statin, beta-blockers
Echo as above
Cath results as above
heparin gtt completed
Cardio eval appreciated, cont medical mgmt
# Acute kidney injury-creatinine improving, with dye exposure watch creatinine for contrast-induced nephropathy
Suspect underlying CKD3, Cr improved consistently 1.5
SHIRA later reoccurred following cystoscopy as below Cr sheila to 2.[address] showed that Uribe catheter balloon was in the region of the prostate. Catheter replaced enlarged prostate noted 7.[address] if bleeding clears plan is for OR on Saturday to complete tumor resection
High risk given recent [place] and urologic anatomy.
Hematuria. Severe prostatic hypertrophy on CAT scan patient has had hematuria for 3 months.
occasionally required hand irrigation
Cystoscopy completed 10/21 -Transurethral resection and fulguration of prostate.Transurethral resection of bladder tumor. ( )
#Hypocalcemia-monitor and replete as necessary
# Hyperlipidemia-continue statin
# Enlarged prostate-on dutasteride and terazosin as outpatient
# Hypertension-holding losartan secondary to acute kidney injury. Continue nifedipine, metoprolol increased to 50 mg daily as per cardio
# Cholelithiasis
# Fatty liver
# DVT prophylaxis-SCDs
# Full code
Discussed with nursing at bedside
Discussed with Dr. Delarosa
I did not call today as Dr. Delarosa already spoke to her.
Anticipated Discharge: > 48 hours
Subjective/Interval History
-
Date of Service: October 26, 2024
Objective Data
-
Vital Signs:
Vital Signs
Temp Pulse Resp BP Pulse Ox
98.2 F 77 18 150/63 92
10/26/24 14:58 10/26/24 05:00 10/26/24 14:58 10/26/24 08:35 10/26/24 14:58
I&O
10/25/24 10/26/24 10/27/24
06:59 06:59 06:59
Intake Total 500 / 500
Output Total 1850 / 1850 1974 1800 / 1800
Balance -1350 / -1350 -1974 / -1974 -1800 / -1799
[2024-10-26 18:51] VITALS: BP 122/57
[2024-10-26 22:22] VITALS: BP 135/67
[2024-10-27] VITALS (7 sets, daily range): BP systolic 97–141; BP diastolic 57–66; BMI 32.7
[2024-10-27] MEDS: NSS 1000 IV ×2 (03:40→15:30)
[2024-10-27] MEDS: PREPARATION H MAX STRENGTH PAIN RELIEF CREAM 1 APPLIC RECTAL ×3 (04:03→16:53)
[2024-10-27 05:04] LABS: Hematocrit 31.8 % (39.0-52.0); Hemoglobin 10.3 g/dL (13.0-18.0); Mean Corp Hgb Conc. 32.4 g/dL (33.0-37.0); Mean Corpuscular Hgb 29.1 pg (27.0-31.0); Mean Corpuscular Volume 89.8 fL (80.0-94.0); Mean Platelet Volume 8.9 fL (7.4-10.4); Platelet Count 212 10^3/uL (130-400); Red Blood Cell Count 3.54 10^6/uL (4.70-6.10); Red Cell Dist. Width 13.7 % (11.5-14.5); White Blood Cell Count 11.8 10^3/uL (4.8-10.8)
[2024-10-27 05:25] LABS: Blood Urea Nitrogen 26 mg/dl (9-20); Calcium 8.1 mg/dl (8.4-10.2); Carbon Dioxide 23 mmol/L (22-30); Chloride 108 mmol/L (98-107); Estimated Creatinine Clearance 34 ml/min; Glucose 87 mg/dl (70-99); Potassium 4.6 mmol/L (3.5-5.1); Sodium 141 mmol/L (135-145); eGFR 37.12
--- NOTE | 2024-10-27 06:27 | PTCARENOTE ---
NSR on monitor. denies pain or sob. continued CBI with clear to light pink urine output
--- NOTE | 2024-10-27 07:11 | W.PN.URO.CBU ---
Today's Communication / Plan
-
return to OR tomorrow
Assessment / Plan
-
84M with gross hematuria for 3 months
significant BPH
BLADDER TUMOR
left hydro- suspected due to BPH/ureteral reflux
CAD with [place]
s/p TURBT and TURP - very difficult procedure due to siz of pt's prostate
large tumor noted- due to prostate size could only be partially resected
left UO not identified
pt required recinos re-insertion for retention- urine was clear- then replacement yesterday- urine clearing
reviewed all findings with pt and at bedside and discussed with med team yesterday
plan to return to OR on sat for attempt at complete tumor resection and unroofing of left UO with stent
very high risk given recent HI and anatomic factors- and again may not be successful in resection of tumor/relief of retention or unobstruction of left ureter- all these eventualities and contingencies reviewed
also discussed discharge with outpt f/u if bleeding resolved at tertiary care center
pt and would like to proceed
consent signed by pt this am
continue med cardiac management/asa
npo after midnight- fluids and diabeteic management per med team- begin pyridium to try and help with ureteral identification in OR tomorrow
Diagnosis
-
Date of Service: October 27, 2024
-
Patient Diagnosis:
CAD
gross hematuria
BPH
Bladder Tumor
left hydro
s/p cysto/partial turbt and fulguration 10/21
Subjective
-
pt stable since recinos repositioning
urine clear this am on slow drip cbi
labs stable- cr declining
Objective
-
Vital Signs
Temp Pulse Resp BP Pulse Ox
98.3 F 63 18 139/64 98
10/27/24 07:07 10/27/24 04:02 10/27/24 07:07 10/27/24 04:02 10/27/24 07:07
Intake and Output
10/26/24 10/27/24 10/28/24
06:59 06:59 06:59
Intake Total 960 / 960
Output Total 1974 3600 / 3600
Balance -1974 / -1974 -2639 / -2639
Intake:
IV fluids (Total) 960 / 960
NSS 960 / 960
Output:
Urine, Recinos 1575 / 1575 1800 / 1800
Urine, Voided 400 / 400
True Urine Output from CBI 1800 / 1800
Other:
Number of unmeasured liquid
stools
Rectum 1
Laboratory Results
10/27/24 04:10
10/27/24 04:10
Physical Exam
-
General -no acute distress
Abdomen - soft, non-tender
Genitalia - [address]
[2024-10-27] MEDS: LIPITOR 40 MG PO (09:27)
[2024-10-27] MEDS: PROCARDIA XL (EXTENDED RELEASE) 30 MG PO (09:27)
[2024-10-27] MEDS: LOW STRENGTH ASPIRIN 81 MG PO (09:27)
[2024-10-27] MEDS: HYTRIN 5 MG PO (09:28)
[2024-10-27] MEDS: PROSCAR 5 MG PO (09:28)
[2024-10-27] MEDS: Pyridium 200 MG PO ×3 (09:28→23:32)
[2024-10-27] MEDS: SENOKOT-S PO ×2 (09:29→20:57)
[2024-10-27] MEDS: TOPROL XL 50 MG PO (09:29)
--- NOTE | 2024-10-27 10:10 | PTCARENOTE ---
Received patient this morning resting in bed. Patient seen early this AM by urology and plan is for surgery tomorrow. CBI infusing, keeping urine a pale peach color with no clots noted. patient denies any pain or discomfort. Ambulated in the hoang
with PCT, patient encouraged to be oob.
--- NOTE | 2024-10-27 11:23 | CM ---
Reviewed chart. Met with and Mrs. Mauro to review discharge plans. He states he is going back to the operating tomorrow. Will need to see his functional status after surgery to see if he will have any skilled care needs. Prior to admission he
resides with his spouse ans son in a two story home without any steps to enter. He has a full flight of steps to get to bedroom/full bathroom. He has a powder room on the first floor. Prior to admission he was independent with ambulation and adls.
He does not have any DME in the home. He has a prescription plan and uses [facility]. Medical work-up in progress. The discharge plan is to return home with his spouse and son when medically stable.
--- NOTE | 2024-10-27 14:06 | PTCARENOTE ---
Bed available on , patient is for surgery tomorrow. Report called to Stephanie. Car[place]as sent with the patient, the patient's and son accompanied him.
--- NOTE | 2024-10-27 14:23 | PTCARENOTE ---
Pt arrived to 2S via stretcher, ambulated to bed AX1, gait steady. IVF infusing per order. CBI infusing per order, orange urine draining, no clots noted at this time. Telemetry applied. Bed locked and in the lowest position, safety maintained.
Oriented to room and call roth, family at bedside.
--- NOTE | 2024-10-27 15:35 | W.PN.HOSP.TC ---
Today's Communication/Plan
-
Teds
Stop IVF
For Urology procedure tomorrow
Assessment / Plan
Assessment / Plan
84M HTN BPH here for NSTEMI hematuria bladder ca
CT abdomen and pelvis-mild left hydronephrosis and severe left hydroureter. Small simple left renal cyst. Gallstones. Mild fecal material in the colon. Severe prostatic hypertrophy.
10/19/2024-left heart catheterization-noncritical but obstructive coronary artery disease in the proximal to mid LAD with borderline positive IFR. At least moderate 60 to 70% stenosis in the mid RCA.
10/19/[id number] LV size and systolic function without regional wall motion abnormalities. EF 55 to 60%. Normal RV size and function. Trace AI. Mild
Repeat CT of the abdomen and pelvis 10/26/2024-recent TURP and TURBT. Uribe catheter with balloon of the Uribe appears to be within the region of the prostate. Enlargement of the prostate gland with transverse dimension 7.2 cm. Severe left
pelvicaliceal and ureteral dilatation extending to the left UV junction. Aortic valvular calcification. Cholelithiasis. Fatty liver
CVS: S1-S2 normal
Chest: CTA B/L
Abdomen: Soft, NT ,Bowel sounds present, Uribe with clear urine
Extremities: No edema
# Chest pain from non-STEMI
Obstructive but noncritical coronary artery disease per cardiac cath
Continue aspirin, as needed sublingual nitro, statin, beta-blockers
Echo as above
Cath results as above
heparin gtt completed
Cardio eval appreciated, cont medical mgmt
# Acute kidney injury-creatinine improving, with dye exposure watch creatinine for contrast-induced nephropathy
Suspect underlying CKD3, Cr improved consistently 1.5
SHIRA later reoccurred following cystoscopy as below Cr sheila to 2.[address] showed that Uribe catheter balloon was in the region of the prostate. Catheter replaced enlarged prostate noted 7.[address] if bleeding clears plan is for OR on Saturday to complete tumor resection
High risk given recent [place] and urologic anatomy.
Hematuria. Severe prostatic hypertrophy on CAT scan patient has had hematuria for 3 months.
occasionally required hand irrigation
Cystoscopy completed 10/21 -Transurethral resection and fulguration of prostate.Transurethral resection of bladder tumor. ( )
# Hypocalcemia-Monitor and replete as necessary
# Hyperlipidemia-Continue statin
# Enlarged prostate-on Dutasteride and Terazosin as outpatient
# Hypertension-Holding losartan secondary to acute kidney injury. Continue Nifedipine, Metoprolol increased to 50 mg daily as per cardio
# Cholelithiasis
# Fatty liver
# DVT prophylaxis-SCDs
# Full code
Discussed with nursing at bedside
Discussed with Dr. Delarosa
D/W and son at bed side
Anticipated Discharge: 24 - 48 hours
Subjective/Interval History
-
Date of Service: October 27, 2024
Objective Data
-
Labs:
Laboratory Results
10/27/24
04:10
WBC 11.8 H
Hgb 10.3 L
Hct 31.8 L
Plt Count 212
Sodium 141
Potassium 4.6
Chloride 108 H
Carbon Dioxide 23
BUN 26 H
Creatinine 1.8 H
Glucose 87
Calcium 8.1 L
Vital Signs:
Vital Signs
Temp Pulse Resp BP Pulse Ox
97.8 F 65 17 130/63 95
10/27/24 15:00 10/27/24 15:00 10/27/24 15:00 10/27/24 15:00 10/27/24 15:00
I&O
10/26/24 10/27/24 10/28/24
06:59 06:59 06:59
Intake Total 960 / 960 700 / 700
Output Total 1974 3600 / 3600 2500 / 2500
Balance -1974 -1974 -2640 / -2640 -1799 / -1800
[2024-10-28] VITALS (17 sets, daily range): BP systolic 102–151; BP diastolic 51–71; PULSE 64; O2SAT 93; BMI 32.2
[2024-10-28] MEDS: PREPARATION H MAX STRENGTH PAIN RELIEF CREAM 1 APPLIC RECTAL (00:29)
--- NOTE | 2024-10-28 09:01 | W.IMMPOSTOP ---
Surgical Immed Post Op Note
-
Primary Surgeon: Elie
Assisting Surgeon: [place]
Pre-op Diagnosis: Bladder Cancer; Prostatomegaly; Left Ureteral Obstruction
Post-op Diagnosis: same
Procedure Performed: TURP/TURBT; attempted left ureteral stenting
Anesthesia Type: gen
Specimen / Cultures: prostate chips. bladder tumor
Estimated Blood Loss: 27 ml
Complications: none
Operative Findings: Prostatomegaly; residual papillary tumor on left postero-lateral wall; no identifiable left ureteric orifice
[2024-10-28 09:39] LABS: Hematocrit 31.8 % (39.0-52.0); Hemoglobin 10.1 g/dL (13.0-18.0); Mean Corp Hgb Conc. 31.8 g/dL (33.0-37.0); Mean Corpuscular Hgb 29.3 pg (27.0-31.0); Mean Corpuscular Volume 92.2 fL (80.0-94.0); Mean Platelet Volume 8.6 fL (7.4-10.4); Platelet Count 194 10^3/uL (130-400); Red Blood Cell Count 3.45 10^6/uL (4.70-6.10); Red Cell Dist. Width 13.6 % (11.5-14.5); White Blood Cell Count 13.1 10^3/uL (4.8-10.8)
[2024-10-28] MEDS: SUBLIMAZE 25 MCG IV (10:10)
[2024-10-28 10:44] LABS: Blood Urea Nitrogen 27 mg/dl (9-20); Calcium 7.9 mg/dl (8.4-10.2); Carbon Dioxide 24 mmol/L (22-30); Chloride 107 mmol/L (98-107); Estimated Creatinine Clearance 33 ml/min; Glucose 109 mg/dl (70-99); Potassium 4.6 mmol/L (3.5-5.1); Sodium 139 mmol/L (135-145); eGFR 37.12
[2024-10-28] MEDS: TYLENOL 650 MG PO (11:01)
[2024-10-28] MEDS: PROCARDIA XL (EXTENDED RELEASE) 30 MG PO (11:02)
[2024-10-28] MEDS: SENOKOT-S 1 TABLET PO ×2 (11:03→20:59)
[2024-10-28] MEDS: HYTRIN 5 MG PO (11:03)
[2024-10-28] MEDS: TOPROL XL 50 MG PO (11:03)
[2024-10-28] MEDS: LIPITOR 40 MG PO (11:04)
[2024-10-28] MEDS: Pyridium 200 MG PO ×3 (11:04→23:17)
[2024-10-28] MEDS: LOW STRENGTH ASPIRIN 81 MG PO (11:04)
[2024-10-28] MEDS: PROSCAR 5 MG PO (11:04)
--- NOTE | 2024-10-28 11:16 | PTCARENOTE ---
Pt returned from PACU in bed. Pt drowsy but easily arouses, resting between care. Full assessment completed. CBI infusing per order, orange urine draining. PRN tylenol provided for penile tip pain. Bed locked and in the lowest position, safety
maintained. Oriented to room and call roth. Family at bedside.
--- NOTE | 2024-10-28 11:54 | W.PN.HOSP.TC ---
Today's Communication/Plan
-
Continue postoperative care
Follow labs
Assessment / Plan
Assessment / Plan
84M HTN BPH here for NSTEMI hematuria bladder ca
CT abdomen and pelvis-mild left hydronephrosis and severe left hydroureter. Small simple left renal cyst. Gallstones. Mild fecal material in the colon. Severe prostatic hypertrophy.
10/19/2024-left heart catheterization-noncritical but obstructive coronary artery disease in the proximal to mid LAD with borderline positive IFR. At least moderate 60 to 70% stenosis in the mid RCA.
10/19/[id number] LV size and systolic function without regional wall motion abnormalities. EF 55 to 60%. Normal RV size and function. Trace AI. Mild
Repeat CT of the abdomen and pelvis 10/26/2024-recent TURP and TURBT. Uribe catheter with balloon of the Uribe appears to be within the region of the prostate. Enlargement of the prostate gland with transverse dimension 7.2 cm. Severe left
pelvicaliceal and ureteral dilatation extending to the left UV junction. Aortic valvular calcification. Cholelithiasis. Fatty liver
CVS: S1-S2 normal
Chest: CTA B/L
Abdomen: Soft, NT ,Bowel sounds present, Uribe with clear urine
Extremities: No edema
Just got back from OR
# Chest pain from non-STEMI
Obstructive but noncritical coronary artery disease per cardiac cath
Continue aspirin, as needed sublingual nitro, statin, beta-blockers
Echo as above
Cath results as above
Heparin gtt completed
Cardio eval appreciated, cont medical mgmt
# Acute kidney injury-creatinine improving, with dye exposure watch creatinine for contrast-induced nephropathy
Suspect underlying CKD3, Cr improved consistently 1.5
SHIRA later reoccurred following cystoscopy as below Cr sheila to 2.[address] showed that Uribe catheter balloon was in the region of the prostate. Catheter replaced enlarged prostate noted 7.[address] if bleeding clears plan is for OR on Saturday to complete tumor resection
High risk given recent [place] and urologic anatomy.
Hematuria. Severe prostatic hypertrophy on CAT scan patient has had hematuria for 3 months.
occasionally required hand irrigation
Cystoscopy completed 10/21 -Transurethral resection and fulguration of prostate.Transurethral resection of bladder tumor. ( )
Status post TURP/TURBT and attempted left ureteral stenting by Dr. Delgadillo 10/28/2024
Postoperative care
# Hypocalcemia-Monitor and replete as necessary
# Hyperlipidemia-Continue statin
# Enlarged prostate-on Dutasteride and Terazosin as outpatient
# Hypertension-Holding losartan secondary to acute kidney injury. Continue Nifedipine, Metoprolol increased to 50 mg daily as per cardio
# Cholelithiasis
# Fatty liver
# DVT prophylaxis-SCDs
# Full code
Discussed with nursing at bedside
D/W and son at bed side
Anticipated Discharge: 24 - 48 hours
Subjective/Interval History
-
Date of Service: October 28, 2024
Objective Data
-
Labs:
Laboratory Results
10/28/24
09:31
WBC 13.1 H
Hgb 10.1 L
Hct 31.8 L
Plt Count 194
Sodium 139
Potassium 4.6
Chloride 107
Carbon Dioxide 24
BUN 27 H
Creatinine 1.8 H
Glucose 109 H
Calcium 7.9 L
Vital Signs:
Vital Signs
Temp Pulse Resp BP Pulse Ox
97.3 F 62 18 139/71 94
10/28/24 10:58 10/28/24 10:58 10/28/24 10:58 10/28/24 10:58 10/28/24 10:58
I&O
10/27/24 10/28/24 10/29/24
06:59 06:59 06:59
Intake Total 960 / 960 1540 / 1540
Output Total 3600 / 3600 3400 / 3400 -600 / -600
Balance -2640 / -2640 -1860 / -1860 600 / 600
--- NOTE | 2024-10-28 12:04 | CM ---
Addendum entered by Kailey hCino 10/28/24 12:12:
Await PT/OT evals for rec
Original Note:
Patient seen at bedside with and son
s/p TURP/TRUBT
CM will follow progression for needs.
PLAN: Home, CM to follow for needs.
[2024-10-29] VITALS (7 sets, daily range): BP systolic 111–131; BP diastolic 53–63; PULSE 65–100; O2SAT 96; BMI 32.4
[2024-10-29 06:59] LABS: Hematocrit 29.4 % (39.0-52.0); Hemoglobin 9.5 g/dL (13.0-18.0); Mean Corp Hgb Conc. 32.3 g/dL (33.0-37.0); Mean Corpuscular Hgb 29.1 pg (27.0-31.0); Mean Corpuscular Volume 89.9 fL (80.0-94.0); Platelet Count 215 10^3/uL (130-400); Red Blood Cell Count 3.27 10^6/uL (4.70-6.10); Red Cell Dist. Width 13.3 % (11.5-14.5); White Blood Cell Count 12.1 10^3/uL (4.8-10.8)
[2024-10-29 07:21] LABS: Blood Urea Nitrogen 29 mg/dl (9-20); Calcium 8.1 mg/dl (8.4-10.2); Carbon Dioxide 24 mmol/L (22-30); Chloride 105 mmol/L (98-107); Estimated Creatinine Clearance 30 ml/min; Glucose 97 mg/dl (70-99); Potassium 4.5 mmol/L (3.5-5.1); Sodium 138 mmol/L (135-145); eGFR 32.71
--- NOTE | 2024-10-29 07:36 | W.PN.URO.CBU ---
Today's Communication / Plan
-
trial of void today
Assessment / Plan
-
84M with gross hematuria for 3 months
significant BPH
BLADDER TUMOR
left hydro- suspected due to BPH/ureteral reflux
CAD with [place]
s/p TURBT and TURP x 2
no visable tumor remaining at this time
left UO not identified- obstructed
recinos out for TOV today
if no bleeding (either without or with recinos re-insertion) would plan for discharge on cardiac meds/medicl management for cards disease- then outpt f/u to coordinate ongoing urologic treatment and cardiac plan
pvr later today
Diagnosis
-
Date of Service: October 29, 2024
-
\\
Patient Diagnosis:
CAD
gross hematuria
BPH
Bladder Tumor
left hydro
s/p cysto/partial turbt and fulguration 10/21
repeat TURBT/TUR 10/28
Subjective
-
pt feels well
urine reportedly clear overnight- recinos removed this am
hgb and cr basically at baseline
Objective
-
Vital Signs
Temp Pulse Resp BP Pulse Ox
97.7 F 68 20 111/54 96
10/29/24 02:58 10/29/24 02:58 10/29/24 02:58 10/29/24 02:58 10/29/24 02:58
Intake and Output
10/28/24 10/29/24 10/30/24
06:59 06:59 06:59
Intake Total 1540 / 1540 1640 / 1640
Output Total 3400 / 3400 2800 / 2800
Balance -1860 / -1860 -1160 / -1160
Intake:
Oral fluids 840 / 840 1440 / 1440
IV fluids (Total) 700 / 700 200 / 200
NSS 460 / 460
normosol 200 / 200
Output:
Urine, Recinos 2099 / 2099
True Urine Output from CBI 1300 / 1300 2800 / 2800
Laboratory Results
10/29/24 06:01
10/29/24 06:01
Review of Systems
-
Constitutional: No Symptoms
Respiratory: No Symptoms
Cardiac: No Symptoms
Abdomen/GI: No Symptoms
Physical Exam
-
General - no acute distress
Abdomen - soft, non-tender
Genitalia - normal
--- NOTE | 2024-10-29 09:19 | PTOTSP ---
pt currently demonstrates ability to complete simple ADLs, functional transfers, ambulation with no assistance. no acute OT needs identified at this time, will sign off.
[2024-10-29] MEDS: PROCARDIA XL (EXTENDED RELEASE) 30 MG PO (09:49)
[2024-10-29] MEDS: HYTRIN 5 MG PO (09:49)
[2024-10-29] MEDS: TOPROL XL 50 MG PO (09:50)
[2024-10-29] MEDS: SENOKOT-S 1 TABLET PO ×2 (09:50→20:36)
[2024-10-29] MEDS: PROSCAR 5 MG PO (09:51)
[2024-10-29] MEDS: LIPITOR 40 MG PO (09:51)
[2024-10-29] MEDS: LOW STRENGTH ASPIRIN 81 MG PO (09:51)
[2024-10-29] MEDS: Pyridium 200 MG PO ×3 (09:51→23:45)
--- NOTE | 2024-10-29 13:28 | W.PN.HOSP.TC ---
Today's Communication/Plan
-
Creatinine 2 today
Watch creatinine with voiding trial
BMP in the morning
Urology following
Encourage PT OT
Assessment / Plan
Assessment / Plan
84M HTN BPH here for NSTEMI hematuria bladder ca
CT abdomen and pelvis-mild left hydronephrosis and severe left hydroureter. Small simple left renal cyst. Gallstones. Mild fecal material in the colon. Severe prostatic hypertrophy.
10/19/2024-left heart catheterization-noncritical but obstructive coronary artery disease in the proximal to mid LAD with borderline positive IFR. At least moderate 60 to 70% stenosis in the mid RCA.
10/19/[id number]-[id number] LV size and systolic function without regional wall motion abnormalities. EF 55 to 60%. Normal RV size and function. Trace AI. Mild
Repeat CT of the abdomen and pelvis 10/26/2024-recent TURP and TURBT. Uribe catheter with balloon of the Uribe appears to be within the region of the prostate. Enlargement of the prostate gland with transverse dimension 7.2 cm. Severe left
pelvicaliceal and ureteral dilatation extending to the left UV junction. Aortic valvular calcification. Cholelithiasis. Fatty liver
CVS: S1-S2 normal
Chest: CTA B/L
Abdomen: Soft, NT ,Bowel sounds present, Uribe with clear urine
Extremities: No edema
# Chest pain from non-STEMI
Obstructive but noncritical coronary artery disease per cardiac cath
Continue aspirin, as needed sublingual nitro, statin, beta-blockers
Echo as above
Cath results as above
Heparin gtt completed
Cardio eval appreciated, cont medical mgmt
# Acute kidney injury-creatinine improving, with dye exposure watch creatinine for contrast-induced nephropathy
Suspect underlying CKD3, Cr improved consistently 1.5
SHIRA later reoccurred following cystoscopy as below Cr sheila to 2.[address] showed that Uribe catheter balloon was in the region of the prostate. Catheter replaced enlarged prostate noted 7.[address] if bleeding clears plan is for OR on Saturday to complete tumor resection
High risk given recent [place] and urologic anatomy.
Hematuria. Severe prostatic hypertrophy on CAT scan patient has had hematuria for 3 months.
occasionally required hand irrigation
Cystoscopy completed 10/21 -Transurethral resection and fulguration of prostate.Transurethral resection of bladder tumor. ( )
Status post TURP/TURBT and attempted left ureteral stenting by Dr. Delgadillo 10/28/2024
Voiding trial per urology today
# Hypocalcemia-Monitor and replete as necessary
# Hyperlipidemia-Continue statin
# Enlarged prostate-on Dutasteride and Terazosin as outpatient
# Hypertension-Holding losartan secondary to acute kidney injury. Continue Nifedipine, Metoprolol increased to 50 mg daily as per cardio
# Cholelithiasis
# Fatty liver
# DVT prophylaxis-SCDs
# Full code
Discussed with nursing at bedside
D/W urology. Watch patient for voiding in the next 24 hours
Anticipated Discharge: Within 24 hours
Subjective/Interval History
-
Date of Service: October 29, 2024
Objective Data
-
Labs:
Laboratory Results
10/29/24
06:01
WBC 12.1 H
Hgb 9.5 L
Hct 29.4 L
Plt Count 215
Sodium 138
Potassium 4.5
Chloride 105
Carbon Dioxide 24
BUN 29 H
Creatinine 2.0 H
Glucose 97
Calcium 8.1 L
Vital Signs:
Vital Signs
Temp Pulse Resp BP Pulse Ox
97.9 F 100 16 128/57 96
10/29/24 08:55 10/29/24 08:55 10/29/24 08:55 10/29/24 09:49 10/29/24 09:48
I&O
12/18/24 12/19/24 12/20/24
06:59 06:59 06:59
Intake Total 1540 / 1540 1640 / 1640
Output Total 3400 / 3400 2800 / 2800 100 / 100
Balance -1860 / -1860 -1160 / -1160 -100 / -100
--- NOTE | 2024-10-29 14:49 | CM ---
Chart reviewed. Met with pt
Voiding trial today
Family will transport home
Plan - anticipate home no needs when medically ready
[2024-10-30 03:10] VITALS: BP 133/67
[2024-10-30 06:00] VITALS: BMI 31.9
--- NOTE | 2024-10-30 07:24 | W.PN.URO.CBU ---
Today's Communication / Plan
-
cleared urologically for discharge
outpt f/u
Assessment / Plan
-
84M with gross hematuria for 3 months
significant BPH
BLADDER TUMOR
left hydro- suspected due to BPH/ureteral reflux
CAD with [place]
s/p TURBT and TURP x 2
no visable tumor remaining at this time
left UO not identified- obstructed
pt is urinating- pvr's marginal- but acceptable
cleared for discharge from gu standpoint today with his usual outpt prostate meds- dutaateride and hytrin
should call to schedule oupt f/u to discuss ongoing issues
Diagnosis
-
Date of Service: October 30, 2024
-
\\
Patient Diagnosis:
CAD
gross hematuria
BPH
Bladder Tumor
left hydro
s/p cysto/partial turbt and fulguration 10/21
repeat TURBT/TUR 10/28
Subjective
-
pt's recinos out for 24hrs
reports no trouble urinating
have checked his pvr's several times- all around 250cc or less
urine has been clear
Objective
-
Vital Signs
Temp Pulse Resp BP Pulse Ox
98.0 F 60 16 133/67 94
10/30/24 03:10 10/30/24 03:10 10/30/24 03:10 10/30/24 03:10 10/30/24 03:10
Intake and Output
10/29/24 10/30/24 10/31/24
06:59 06:59 06:59
Intake Total 1640 / 1640 800 / 800
Output Total 2800 / 2800 1925 / 1925
Balance -1160 / -1160 -1125 / -1125
Intake:
Oral fluids 1440 / 1440 800 / 800
IV fluids (Total) 200 / 200
normosol 200 / 200
Output:
Urine, Voided 1924
True Urine Output from CBI 2800 / 2800
Other:
Number of approximated SMALL 1
amounts of urine
Laboratory Results
10/29/24 06:01
10/29/24 06:01
Review of Systems
-
Constitutional: No Symptoms
Respiratory: No Symptoms
Cardiac: No Symptoms
Abdomen/GI: No Symptoms
: No Symptoms
Physical Exam
-
General - no acute distress
Abdomen - soft, non-tender
Genitalia - normal
[2024-10-30 08:35] VITALS: BP 134/62
[2024-10-30] MEDS: PROCARDIA XL (EXTENDED RELEASE) 30 MG PO (08:50)
[2024-10-30] MEDS: HYTRIN 5 MG PO (08:50)
[2024-10-30] MEDS: LIPITOR 40 MG PO (08:50)
[2024-10-30] MEDS: LOW STRENGTH ASPIRIN 81 MG PO (08:50)
[2024-10-30] MEDS: TOPROL XL 50 MG PO (08:50)
[2024-10-30] MEDS: PROSCAR 5 MG PO (08:50)
[2024-10-30] MEDS: Pyridium 200 MG PO (08:51)
[2024-10-30] MEDS: SENOKOT-S PO (08:51)
[2024-10-30 11:20] VITALS: BP 115/60
[2024-10-30 12:11] VITALS: BP 115/60
[2024-10-30 13:38] LABS: Blood Urea Nitrogen 33 mg/dl (9-20); Calcium 8.4 mg/dl (8.4-10.2); Carbon Dioxide 30 mmol/L (22-30); Chloride 103 mmol/L (98-107); Estimated Creatinine Clearance 28 ml/min; Glucose 134 mg/dl (70-99); Potassium 4.8 mmol/L (3.5-5.1); Sodium 138 mmol/L (135-145); eGFR 30.85
--- NOTE | 2024-10-30 14:21 | CM ---
Chart reviewed. Met with pt and family at bedside
Poss discharge today pending labs
Pt has ride home at d/c
Given IMM
Plan - anticipate home no needs when medically ready
--- NOTE | 2024-10-30 14:45 | W.PN.HOSP.TC ---
Addendum entered and electronically signed by Eugene Guerra MD 10/30/24 15:01:
Subjective: voiding ok, no complaints
Exam:
CVS: S1-S2 normal
Chest: CTA B/L
Abdomen: Soft, NT ,Bowel sounds present, Uribe with clear urine
Extremities: No edema
Original Note:
Today's Communication/Plan
-
dc to home
Assessment / Plan
Assessment / Plan
84M HTN BPH here for NSTEMI hematuria bladder ca
CT abdomen and pelvis-mild left hydronephrosis and severe left hydroureter. Small simple left renal cyst. Gallstones. Mild fecal material in the colon. Severe prostatic hypertrophy.
10/19/2024-left heart catheterization-noncritical but obstructive coronary artery disease in the proximal to mid LAD with borderline positive IFR. At least moderate 60 to 70% stenosis in the mid RCA.
10/19/[id number] LV size and systolic function without regional wall motion abnormalities. EF 55 to 60%. Normal RV size and function. Trace AI. Mild
Repeat CT of the abdomen and pelvis 10/26/2024-recent TURP and TURBT. Uribe catheter with balloon of the Uribe appears to be within the region of the prostate. Enlargement of the prostate gland with transverse dimension 7.2 cm. Severe left
pelvicaliceal and ureteral dilatation extending to the left UV junction. Aortic valvular calcification. Cholelithiasis. Fatty liver
CVS: S1-S2 normal
Chest: CTA B/L
Abdomen: Soft, NT ,Bowel sounds present, Uribe with clear urine
Extremities: No edema
Assessment:
# Chest pain from non-STEMI
Obstructive but noncritical coronary artery disease per cardiac cath
Continue aspirin, as needed sublingual nitro, statin, beta-blockers
Echo as above
Cath results as above
Heparin gtt completed
Cardio eval appreciated, cont medical mgmt
# Acute kidney injury-creatinine improving, with dye exposure watch creatinine for contrast-induced nephropathy
Suspect underlying CKD3, Cr improved consistently 1.5
SHIRA later reoccurred following cystoscopy as below Cr sheila to 2.[address] showed that Uribe catheter balloon was in the region of the prostate. Catheter replaced enlarged prostate noted 7.[address] if bleeding clears plan is for OR on Saturday to complete tumor resection
High risk given recent AL and urologic anatomy.
Hematuria. Severe prostatic hypertrophy on CAT scan patient has had hematuria for 3 months.
occasionally required hand irrigation
Cystoscopy completed 10/21 -Transurethral resection and fulguration of prostate.Transurethral resection of bladder tumor. ( )
Status post TURP/TURBT and attempted left ureteral stenting by Dr. Delgadillo 10/28/2024
Voiding trial ok per Urology
# Hypocalcemia-Monitor and replete as necessary
# Hyperlipidemia-Continue statin
# Enlarged prostate-on Dutasteride and Terazosin as outpatient
# Hypertension-Holding losartan secondary to acute kidney injury. Continue Nifedipine, Metoprolol increased to 50 mg daily as per cardio
# Cholelithiasis
# Fatty liver
# DVT prophylaxis-SCDs
# Full code
Discussed with nursing at bedside
D/W urology. Watch patient for voiding in the next 24 hours
More than 30 minutes spent in discharge including
Final examination of the patient
Summarizing hospital stay
Instructions for continuing care to all relevant caregivers
Preparation of discharge records, prescriptions, and referral forms
Total time spent (in minutes): 41
Anticipated Discharge: Today
Subjective/Interval History
-
Date of Service: October 30, 2024
Objective Data
-
Labs:
Laboratory Results
10/30/24
13:06
Sodium 138
Potassium 4.8
Chloride 103
Carbon Dioxide 30
BUN 33 H
Creatinine 2.1 H
Glucose 134 H
Calcium 8.4
Vital Signs:
Vital Signs
Temp Pulse Resp BP Pulse Ox
97.9 F 82 16 115/60 93
10/30/24 11:20 10/30/24 11:20 10/30/24 11:20 10/30/24 11:20 10/30/24 11:20
I&O
10/29/24 10/30/24 10/31/24
06:59 06:59 06:59
Intake Total 1640 / 1640 800 / 800
Output Total 2800 / 2800 1925 / 1925
Balance -1160 / -1160 -1125 / -1125
--- NOTE | 2024-10-30 15:05 | W.DS.TRANS ---
DC Summary - Hospice Registered Nurse
-
Discharge Instructions:
Discharge Diagnosis/Procedures NSTEMI, SHIRA on CKD, bladder mass, hemuturia s/p
TURBT/TURP x 2
Diet Low Cholesterol
Activity As tolerated
Bathing Restrictions None
Instructions:
Stand-Alone Forms:
Changes to Home Medications: No
Discharge Medications:
DC Medications w/original date entered in treadalong
cholecalciferol (vitamin D3) 25 mcg (1,000 unit) tablet (Vitamin D3) 25 mcg PO DAILY Supplement 10/17/24
dutasteride 0.5 mg capsule 0.5 mg PO DAILY Urinary Issue 10/17/24
nifedipine 30 mg tablet,extended release 24 hr 30 mg PO DAILY Blood Pressure 10/17/24
terazosin 5 mg capsule 5 mg PO DAILY Blood Pressure 10/17/24
therapeutic multivitamin 1 tab PO DAILY Supplement 10/17/24
vitamin E 268 mg (400 unit) capsule 268 mg PO DAILY Supplement 10/17/24
zinc sulfate 50 mg zinc (220 mg) tablet 50 mg PO DAILY Supplement 10/17/24
aspirin 81 mg chewable tablet 81 mg PO DAILY Heart disease/condition #30 tabs 10/26/24
atorvastatin 40 mg tablet 40 mg PO DAILY High cholesterol #30 tabs 10/26/24
metoprolol succinate 50 mg tablet,extended release 24 hr 50 mg PO DAILY Heart disease/condition #30 tabs 10/26/24
nitroglycerin 0.4 mg sublingual tablet 0.4 mg sublingual [id number] PRN chest pain #20 tabs 10/26/24
phenazopyridine 200 mg tablet 200 mg PO Q8 PRN Pain #20 tabs 10/30/24
Home Medication Changes
Losartan stopped
Pending Results: No
Total time spent discharging patient (in min): 41
[2024-10-30 15:44] VITALS: BP 126/51
== END 2024-10-30 15:55 | disposition home or self-care (01) | DRG 665 ==
LOC: 2 SOUTH 13:29
PROVIDERS: Hospitalist; Internal Medicine; Internal Medicine Interventional Cardiology; Registered Nurse; Specialist; ADMITTING PHYSICIAN Internal Medicine; ATTENDING PHYSICIAN Internal Medicine; CONSULT PHYSICIAN Internal Medicine Cardiovascular Disease; CONSULT PHYSICIAN Specialist; EMERGENCY PHYSICIAN Emergency Medicine; FAMILY PHYSICIAN Family Medicine
PROC: B2111ZZ Fluoroscopy of Multiple Coronary Arteries using Low Osmolar Contrast (ICD-10-PCS; 2024-10-19)
PROC: B2151ZZ Fluoroscopy of Left Heart using Low Osmolar Contrast (ICD-10-PCS; 2024-10-19)
PROC: 4A033BC Measurement of Arterial Pressure, Coronary, Percutaneous Approach (ICD-10-PCS; 2024-10-19)
PROC: 4A023N7 Measurement of Cardiac Sampling and Pressure, Left Heart, Percutaneous Approach (ICD-10-PCS; 2024-10-19)
PROC: 0TBB8ZZ Excision of Bladder, Via Natural or Artificial Opening Endoscopic (ICD-10-PCS; 2024-10-21)
PROC: 0VB08ZZ Excision of Prostate, Via Natural or Artificial Opening Endoscopic (ICD-10-PCS; 2024-10-21)
DX: C67.3 Malignant neoplasm of anterior wall of bladder (principal); I21.4 Non-ST elevation (NSTEMI) myocardial infarction; N13.39 Other hydronephrosis; N17.9 Acute kidney failure, unspecified; N40.0 Benign prostatic hyperplasia without lower urinary tract symptoms; I12.9 Hypertensive chronic kidney disease with stage 1 through stage 4 chronic kidney disease, or unspecified chronic kidney disease; E78.00 Pure hypercholesterolemia, unspecified; I25.10 Atherosclerotic heart disease of native coronary artery without angina pectoris; E66.9 Obesity, unspecified; R31.0 Gross hematuria; N18.30 Chronic kidney disease, stage 3 unspecified; E83.51 Hypocalcemia; K80.20 Calculus of gallbladder without cholecystitis without obstruction; K76.0 Fatty (change of) liver, not elsewhere classified; Z68.31 Body mass index [BMI] 31.0-31.9, adult; Z79.899 Other long term (current) drug therapy; Z87.891 Personal history of nicotine dependence
CPT/HCPCS: 88307; 71046; 74176; 80048; 80053; 80061; 81003; 81015; 82306; 83036; 83735; 83880; 84100; 84484; 85014; 85018; 85025; 85027; 85347; 85610; 85730; 86850; 86900; 86901; 93005; 93306; 93458; 93799; 96365; 96366; 97116; 97162; 97165; 99152; 99153; 99291; C1769; C1894; Q9967

== ENCOUNTER 2024-11-11 23:56 | Inpatient (IN) | payer MEDICARE, OTHER, SELFPAY ==
[2024-11-11] VITALS (8 sets, daily range): BP systolic 102–131; BP diastolic 58–71
[2024-11-11 18:36] LABS: % Basophils 0.2 % (0-2); % Immature Granulocytes 0.5 % (0-0.5); % Lymphocytes 12.3 % (20.5-51.1); % Monocytes 7.1 % (1.7-9.3); % Neutrophils 78.9 % (42.2-75.2); Absolute Eosinophils 0.1 10^3/uL (0-0.7); Absolute Immature Granulocytes 0.1 10^3/uL (0-0.05); Absolute Lymphocytes 1.2 10^3/uL (1.2-3.4); Absolute Monocytes 0.7 10^3/uL (0.1-0.6); Absolute Neutrophils 7.8 10^3/uL (1.4-6.5); Hematocrit 34.5 % (39.0-52.0); Hemoglobin 10.7 g/dL (13.0-18.0); Mean Corpuscular Hgb 28.1 pg (27.0-31.0); Mean Corpuscular Volume 90.6 fL (80.0-94.0); Mean Platelet Volume 9.1 fL (7.4-10.4); Nucleated Red Blood Cells % 0 % (-); Platelet Count 183 10^3/uL (130-400); Red Blood Cell Count 3.81 10^6/uL (4.70-6.10); Red Cell Dist. Width 14.1 % (11.5-14.5); White Blood Cell Count 9.9 10^3/uL (4.8-10.8)
--- NOTE | 2024-11-11 18:45 | ED.GENMED ---
History of Present Illness
<Mirta Santos NP - Last Filed: 11/12/24 22:59>
General
Chief Complaint: Chest Pain
Source: patient, spouse and family
Exam Limitations: none
Time Seen by Provider: 11/11/24 18:25
Nursing documentation reviewed up to this point in time: agreed with
History of Present Illness
History of Present Illness:
Patient to ED with complaint of SOB. States he was climbing stairs at home and developed mid chest pressure, SOB. Reports diaphoresis. No n/v. He reclined on bed, spouse gave hime 2SL NTG and called 911. States CP dyspnea, diaphoresis resolved
after SLNTG. now reportsfatigue. He was admitted here on 10/17 with similar complaint. Symptoms resolved with SL NTG on way to ED. Initial EKG showed nonspecific ST changes, mild troponin elevation of 1.42. Placed on IV heparin and admitted.
He was admitted for nonstemi NM> Unfortuneately he was also experiencing hematuria that was worsened by IV heparin. Cardiac cath on 10/17 revealed noncritical obstructive CAD proximal to mid LAD. 60-70% stenosis of RCA, high normal LVEDP. Due to
worsening henaturia and non critical cath findings it was decided to manage him with ASA, betablocker, CCP. TUrp was performed for hematuria and results included new finding o9f bladder CA. Enlarged prostate.Cardiac symptoms did not rturn during
his admission and he was discharged home on 10/30. He has a follow up appointment with urology tomorrow, cardiololgy followu up next week. No further cardiac symptoms until tonight.
Past History
<Mirta Santos NP - Last Filed: 11/12/24 22:59>
Past History
ED Past Medical History: HTN and Hypercholesterolemia
Review of Systems
<Mirta Santos NP - Last Filed: 11/12/24 22:59>
Review of Systems
Allergies reviewed?: Yes
All Other Systems: ROS reviewed and negative except as documented in HPI and ROS
Constitutional: Reports no symptoms
EENT: Reports no symptoms
Respiratory: Reports trouble breathing
Cardiac: Reports chest pain (middle chest pain) and diaphoresis
ABD/GI: Reports no symptoms
: Reports no symptoms
Musculoskeletal: Reports no symptoms
Skin: Reports no symptoms
Neurological: Reports no symptoms
Psychiatric: Reports no symptoms
Phy Exam
<Mirta Santos NP - Last Filed: 11/12/24 22:59>
General Physical Exam
General Presentation: well appearing and no apparent distress
General age: appears stated age
General Skin: warm and dry
General Habitus: normal
Cardiovascular Exam
Cardiovascular Exam: regular rate/rhythm and no edema
Pulmonary Exam
Pulmonary Exam: lungs clear and no respiratory distress
Musculoskeletal Exam
Musculoskeletal Exam: full ROM and neuro vasc intact
Skin Exam
Skin Exam: normal color, warm/dry and no rash
Psychiatric Exam
Psychiatric Exam: normal mood/affect
Scores
<Mirta Santos NP - Last Filed: 11/12/24 22:59>
Heart Score for Chest Pain Patients
STEMI patient?: No
History: Highly Suspicious
ECG: Normal
Age: >/= 65 years
Risk Factors: >/= 3 Risk Factors or History of CAD
Troponin: >1 - <3 x Normal Limit
Heart Score for Chest Pain Patients: 7
Heart Score Risk: 72.7 % MACE over next 6 weeks
PERC Rule Criteria
Age <50 years: No
HR <100 bpm: Yes
Room air oxygen sat >94%: No
History of DVT or PE: No
Recent trauma or surgery: Yes
Hemoptysis: No
Exogenous estrogen: No
Clinical signs suggestive of DVT: Yes
: No
Considered low risk for PE: No
PERC Score: 5
PE can be excluded by PERC: No
<Rex Oneil DO - Last Filed: 11/12/24 02:21>
PERC Rule Criteria
PERC Score: 5
PE can be excluded by PERC: No
Course
<Mirta Santos HOSPICE DIRECTOR - Last Filed: 11/12/24 22:59>
Orders/Labs/Results
Orders:
Orders
11/11/24 18:11
Electrocardiogram (*1) Urgent
Reason for Study: Chest Pain
EKG- Treatment ONCE
11/11/24 18:23
Basic Metabolic Panel Urgent
Complete Blood Count/With Diff Urgent
11/11/24 18:59
Troponin I Urgent
11/11/24 19:45
D-Dimer Urgent
PTT Urgent
Prothrombin Time Urgent
Is patient on Coumadin/Warfarin?: Unknown
Comment: ADDED
11/11/24 20:45
Portable Chest Xray [CR Chest Portable - 1 View] Urgent
Comment:
Reason For Exam: sob
Reason Study Needs to be Portable: Patient Unstable
11/11/24 20:58
CT Chest PE Study Urgent
Comment:
Reason For Exam: SOB, elevated DDimer
11/11/24 21:05
COVID-19 Antigen Urgent
Source: Nasal Swab
Influenza A+B Rapid Molecular Urgent
SHERYL Source: Nasal Swab
Specimen Description:
11/11/24 22:06
Troponin I Urgent
11/11/24 22:37
Add On- LAB Urgent
Tests Added?: ptt
Heparin 7,200 units IV NOW STA
Nursing to Place Non Medication Order As Directed
Physician Order: PTT 6 hours after initial start of Heparin infusion
Above order entered?: Yes
11/11/24 22:45
Heparin [id number] Units/250 ml 25,000 units in 250 ml IV PER PROTOCOL
Weight to be used for heparin protocol in kilograms (kg):: 90
Protocol:: DVT/PE
PTT Goal Range to be used:: PTT 73 to 111 seconds
Order type:: Initial
INITIAL Infusion Dose (UNITS/KG/hr) & then follow protocol:: 18 units/kg/hr
Infusion Dose in UNITS/hr & then follow protocol (UNITS/hr):: 1,600
INFUSION RATE in mL/hr & then follow protocol (mL/hr):: 16
For DVT/PE algorithm, re-bolus for low PTT?: Yes
PTT less than or equal to 64 seconds:: Re-bolus 80 units/kg (max 10,000units). Increase by 400 units/hr
(+ 4mL/hr)
PTT 64.1 to 72.9 seconds:: Re-bolus 40 units/kg (max 5,000 units). Increase by 200 units/hr
(+ 2mL/hr)
PTT 73 to 111 seconds:: Target Range. No change in rate.
PTT 111.1 to 130.9 seconds:: Decrease rate by 200 units/hr (- 2 mL/hr)
PTT 131 to 199.9 seconds:: HOLD for 1 hr. Then decrease by 300 units/hr (- 3mL/hr)
PTT greater than or equal to 200 seconds:: HOLD for 2 hrs & Notify Provider. Then decrease by 400 units/hr
(- 4mL/hr)
Lab follow-up:: Each change, PTT q6h until 2 consecutive are therapeutic. Then
PTT daily.
11/11/24 22:52
Heparin 3,600 units IV PRN PRN
Heparin 7,200 units IV PRN PRN
11/11/24 23:00
Flush (0.9% Sodium Chloride) [Flush (Nss)] See Dose Instructions IV PER PROTOCOL
11/11/24 23:34
Add On- LAB Urgent
Tests Added?: pt/inr
11/11/24 23:44
Admit/Transfer Patient As Directed
Co-Sign Provider:
Level of Care: Inpatient admission
Assign to:: ICU
Physician / Group: Niranjan
Diagnosis: Pulmonary Embolism
Reason for Hospitalization: Pulmonary Embolism
Expected length of stay greater than two midnights?: Yes
ELOS- Estimated Length of Stay in days: 4
I certify the patient meets the requirements for IP care: Yes
PRN Pain Medication Management As Directed
May give lesser potent ordered pain med per pt: Yes
preference::
Protocol:: Medication orders for pain may be administered in a
manner that supports deferring to patient preference
when the pt is:
- Requesting an ordered lesser potent pain medication.
Least to most potent pain medications are defined
as: acetaminophen < NSAID < tramadol < opioids
(morphine, oxycodone, hydromorphone).
- Requesting a lesser dose of the same medication IF
ORDERED.
- Requesting a less intrusive route of administration
if both routes are prescribed by the provider (PO <
IV).
11/11/24 23:46
Code Status As Directed
Resuscitation Status: Full Code
Abnormal Lab Results
11/11/24 11/11/24 11/11/24
18:23 18:59 19:45
RBC 3.81 L 10^6/uL
(4.70-6.10)
Hgb 10.7 L g/dL
(13.0-18.0)
Hct 34.5 L %
(39.0-52.0)
MCHC 31.0 L g/dL
(33.0-37.0)
Abs Immat Gran (auto) 0.1 H 10^3/uL
(0-0.05)
Absolute Neuts (auto) 7.8 H 10^3/uL
(1.4-6.5)
Absolute Monos (auto) 0.7 H 10^3/uL
(0.1-0.6)
Neutrophils % 78.9 H %
(42.2-75.2)
Lymphocytes % 12.3 L %
(20.5-51.1)
D-Dimer > 20.00 H ug/mlFEU
(0.00-0.50)
Carbon Dioxide 19 L mmol/L
(22-30)
BUN 29 H mg/dl
(9-20)
Creatinine 1.8 H mg/dL
(0.7-1.3)
Glucose 174 H mg/dl
(70-99)
Calcium 8.3 L mg/dl
(8.4-10.2)
Troponin I 0.057 H* ng/ml
11/11/24
22:06
RBC
Hgb
Hct
MCHC
Abs Immat Gran (auto)
Absolute Neuts (auto)
Absolute Monos (auto)
Neutrophils %
Lymphocytes %
D-Dimer
Carbon Dioxide
BUN
Creatinine
Glucose
Calcium
Troponin I 0.140 H* D ng/ml
11/11/24 18:23
11/11/24 18:23
Vital Signs
Initial and Last Documented VS:
Initial Vital Signs
Temp Pulse Resp Pulse Ox
97.3 F 77 20 90
11/11/24 18:16 11/11/24 18:16 11/11/24 18:16 11/11/24 18:16
Last Documented Vital Signs
Temp Pulse Resp BP Pulse Ox
97.8 F 80 17 128/70 94
11/12/24 00:31 11/12/24 00:31 11/12/24 00:31 11/12/24 00:31 11/12/24 00:31
Finnlt;Rex AnivalRadha Oneil, DO - Last Filed: 11/12/24 02:21>
Orders/Labs/Results
Orders:
Orders
11/11/24 18:11
Electrocardiogram (*1) Urgent
Reason for Study: Chest Pain
EKG- Treatment ONCE
11/11/24 18:23
Basic Metabolic Panel Urgent
Complete Blood Count/With Diff Urgent
11/11/24 18:59
Troponin I Urgent
11/11/24 19:45
D-Dimer Urgent
PTT Urgent
Prothrombin Time Urgent
Is patient on Coumadin/Warfarin?: Unknown
Comment: ADDED
11/11/24 20:45
Portable Chest Xray [CR Chest Portable - 1 View] Urgent
Comment:
Reason For Exam: sob
Reason Study Needs to be Portable: Patient Unstable
11/11/24 20:58
CT Chest PE Study Urgent
Comment:
Reason For Exam: SOB, elevated DDimer
11/11/24 21:05
COVID-19 Antigen Urgent
Source: Nasal Swab
Influenza A+B Rapid Molecular Urgent
SHERYL Source: Nasal Swab
Specimen Description:
11/11/24 22:06
Troponin I Urgent
11/11/24 22:37
Add On- LAB Urgent
Tests Added?: ptt
Heparin 7,200 units IV NOW STA
Nursing to Place Non Medication Order As Directed
Physician Order: PTT 6 hours after initial start of Heparin infusion
Above order entered?: Yes
11/11/24 22:45
Heparin [id number] Units/250 ml 25,000 units in 250 ml IV PER PROTOCOL
Weight to be used for heparin protocol in kilograms (kg):: 90
Protocol:: DVT/PE
PTT Goal Range to be used:: PTT 73 to 111 seconds
Order type:: Initial
INITIAL Infusion Dose (UNITS/KG/hr) & then follow protocol:: 18 units/kg/hr
Infusion Dose in UNITS/hr & then follow protocol (UNITS/hr):: 1,600
INFUSION RATE in mL/hr & then follow protocol (mL/hr):: 16
For DVT/PE algorithm, re-bolus for low PTT?: Yes
PTT less than or equal to 64 seconds:: Re-bolus 80 units/kg (max 10,000units). Increase by 400 units/hr
(+ 4mL/hr)
PTT 64.1 to 72.9 seconds:: Re-bolus 40 units/kg (max 5,000 units). Increase by 200 units/hr
(+ 2mL/hr)
PTT 73 to 111 seconds:: Target Range. No change in rate.
PTT 111.1 to 130.9 seconds:: Decrease rate by 200 units/hr (- 2 mL/hr)
PTT 131 to 199.9 seconds:: HOLD for 1 hr. Then decrease by 300 units/hr (- 3mL/hr)
PTT greater than or equal to 200 seconds:: HOLD for 2 hrs & Notify Provider. Then decrease by 400 units/hr
(- 4mL/hr)
Lab follow-up:: Each change, PTT q6h until 2 consecutive are therapeutic. Then
PTT daily.
11/11/24 22:52
Heparin 3,600 units IV PRN PRN
Heparin 7,200 units IV PRN PRN
11/11/24 23:00
Flush (0.9% Sodium Chloride) [Flush (Nss)] See Dose Instructions IV PER PROTOCOL
11/11/24 23:34
Add On- LAB Urgent
Tests Added?: pt/inr
11/11/24 23:44
Admit/Transfer Patient As Directed
Co-Sign Provider:
Level of Care: Inpatient admission
Assign to:: ICU
Physician / Group: Niranjan
Diagnosis: Pulmonary Embolism
Reason for Hospitalization: Pulmonary Embolism
Expected length of stay greater than two midnights?: Yes
ELOS- Estimated Length of Stay in days: 4
I certify the patient meets the requirements for IP care: Yes
PRN Pain Medication Management As Directed
May give lesser potent ordered pain med per pt: Yes
preference::
Protocol:: Medication orders for pain may be administered in a
manner that supports deferring to patient preference
when the pt is:
- Requesting an ordered lesser potent pain medication.
Least to most potent pain medications are defined
as: acetaminophen < NSAID < tramadol < opioids
(morphine, oxycodone, hydromorphone).
- Requesting a lesser dose of the same medication IF
ORDERED.
- Requesting a less intrusive route of administration
if both routes are prescribed by the provider (PO <
IV).
11/11/24 23:46
Code Status As Directed
Resuscitation Status: Full Code
Abnormal Lab Results
11/11/24 11/11/24 11/11/24
18:23 18:59 19:45
RBC 3.81 L 10^6/uL
(4.70-6.10)
Hgb 10.7 L g/dL
(13.0-18.0)
Hct 34.5 L %
(39.0-52.0)
MCHC 31.0 L g/dL
(33.0-37.0)
Abs Immat Gran (auto) 0.1 H 10^3/uL
(0-0.05)
Absolute Neuts (auto) 7.8 H 10^3/uL
(1.4-6.5)
Absolute Monos (auto) 0.7 H 10^3/uL
(0.1-0.6)
Neutrophils % 78.9 H %
(42.2-75.2)
Lymphocytes % 12.3 L %
(20.5-51.1)
D-Dimer > 20.00 H ug/mlFEU
(0.00-0.50)
Carbon Dioxide 19 L mmol/L
(22-30)
BUN 29 H mg/dl
(9-20)
Creatinine 1.8 H mg/dL
(0.7-1.3)
Glucose 174 H mg/dl
(70-99)
Calcium 8.3 L mg/dl
(8.4-10.2)
Troponin I 0.057 H* ng/ml
11/11/24
22:06
RBC
Hgb
Hct
MCHC
Abs Immat Gran (auto)
Absolute Neuts (auto)
Absolute Monos (auto)
Neutrophils %
Lymphocytes %
D-Dimer
Carbon Dioxide
BUN
Creatinine
Glucose
Calcium
Troponin I 0.140 H* D ng/ml
11/11/24 18:23
11/11/24 18:23
Vital Signs
Initial and Last Documented VS:
Initial Vital Signs
Temp Pulse Resp Pulse Ox
97.3 F 77 20 90
11/11/24 18:16 11/11/24 18:16 11/11/24 18:16 11/11/24 18:16
Last Documented Vital Signs
Temp Pulse Resp BP Pulse Ox
97.8 F 80 17 128/70 94
11/12/24 00:31 11/12/24 00:31 11/12/24 00:31 11/12/24 00:31 11/12/24 00:31
<Mirta Santos NP - Last Filed: 11/12/24 22:59>
*Radiology
Radiology exam reviewed: radiology read reviewed
*Pulse Oximetry
Patient hypoxic: yes
*Critical Care Note
Total Time (30-74mins, 75-104mins- exclusive of procedures): Not Applicable
<Mirta Santos HOSPICE DIRECTOR - Last Filed: 11/12/24 22:59>
Update Note
Update Note:
Patient to ED with complaint of chest pain while walking up stepst tonight at home. reported SOB, diaphoresis. Given 2 SL NTG by and then transported to ED by EMS. While in ED he remained chest pain free however Pulse ox continued to
decline. Place on supplementary O2 by NC. Now up to 7L with pulse ox 92% at rest. He is s/p bladder and prostate surgery x 2 weeks. Ddimer result of >20. Chest CT confimrs large volume PE in bilateral upper and lower lobs. Thin saddle
embolisms. RV strain ration of 2. PERC alert called by Dr. Oneil. Heparin infusion initiated. Discussed findings with patient and family. WIll admit to hospitalis service.
ED Attending Note
<Mirta Santos HOSPICE DIRECTOR - Last Filed: 11/12/24 22:59>
-
Portions of this chart may have been created with voice recognition software.� Occasional wrong word or��sound alike� substitutions may have occurred due to the inherent limitations of voice recognition software.
<Rex Oneil DO - Last Filed: 11/12/24 02:21>
ED Attending Note
Patient seen and examined by attending physician: Yes
I performed the substantive portion of visit, reviewed & personally made and approve the management plan that is documented in note by myself or CARLOS.: Yes
ED Attending Note:
I agree with Mirta's note.
84-year-old male presents to the emergency room for evaluation of chest pain and shortness of breath that occurred while ascending a flight of steps. Patient was recently hospitalized after having chest pain and a NSTEMI. He has sublingual
nitroglycerin which she took 2 of. Chest pain went away. However patient continues to have some shortness of breath. No fever. During his recent hospitalization the patient's had a cardiac catheterization which showed moderate LAD disease and
medical management was the plan. Patient also had surgical resection of his prostate due to prostate cancer. Patient's shortness of breath seems to have worsened while he has been here in the emergency room.
General: Sleepy but arousable, answers questions appropriately but does seem a bit somnolent. Patient feels that shortness of breath is better now that his oxygen has been turned up
Vitals: unremarkable
Head: Atraumatic
Eyes: Pupils equal, EOMI
Throat: Airway intact, no exudates
Neck: Trachea midline
Lungs: Crackles bilaterally
Heart: Regular rate, no murmurs
Abd: Soft, Nontender, No pulsatile mass
Neuro: Grossly nonfocal
Skin: Warm, dry, no rash
Extremities: pulses equal b/l, 1+ edema left leg (patient says this is chronic)
EKG: Normal sinus rhythm with a rate of 77. There is a first-degree AV block. There is T wave inversion in lead III which was not present on previous EKG. Otherwise nonspecific ST changes
Cxr: no sig infiltrate or chf.
Differential includes acute coronary syndrome, PE at this point. CT of the chest was performed which did show significant clot bilaterally with a saddle embolus, right heart strain. PERT alert was called as patient has significant oxygen
requirements, has right heart strain on CT. I discussed the case with Dr. Perez who is on-call for pulmonary as well as Dr. Mancuso who is on-call for interventional radiology. Decision made to take the patient to IR for potential intervention to
either remove or lyse the clot.
Critical care statement: A total of 40 minutes of critical care time was provided for this patient. This includes management of unstable vital signs, evaluation of the patient at bedside, reviewing the patient's pertinent medical records, discussion
with consultants, review of old EKGs and review of pertinent medical records. This time with separate from time utilized to perform the aforementioned documented procedures
Discharge Plan
Departure
Patient Disposition: Admit
Date of Disposition: 11/11/24
Time of Disposition: 22:40
Presentation/result/management discussed w/ accepting MD/DO: Hospitalist
Condition: Critical
Discharge Problem:
Pulmonary embolism
Interventions
Interventions:
*Risk Screen - Suicide Last Done: 11/11/24 18:12
*General Assessment Last Done: 11/11/24 18:12
*Neglect/Abuse Screening Last Done: 11/11/24 18:12
ED- Fall Risk Assessment Last Done: 11/12/24 00:15
*ED COVID-19 Vaccine History Last Done: 11/11/24 18:12
*Nursing Disposition Last Done: 11/12/24 00:15
ED- Cardiac Assessment Last Done: 11/11/24 23:10
Discharge Date and Time
Discharge Date/Time: 11/12/24 00:15
[2024-11-11 18:51] LABS: Blood Urea Nitrogen 29 mg/dl (9-20); Calcium 8.3 mg/dl (8.4-10.2); Carbon Dioxide 19 mmol/L (22-30); Chloride 107 mmol/L (98-107); Glucose 174 mg/dl (70-99); Sodium 137 mmol/L (135-145); eGFR 37.12
[2024-11-11 19:33] LABS: Troponin I 0.057 ng/ml
[2024-11-11 20:55] LABS: D-Dimer > 20.00 ug/mlFEU (0.00-0.50)
[2024-11-11 21:27] LABS: COVID-19 Antigen Negative (Negative)
[2024-11-11 22:48] LABS: APTT 31.5 Sec (23.4-35.0)
[2024-11-11] MEDS: HEPARIN 7200 UNITS IV (22:52)
[2024-11-11] MEDS: FLUSH (NSS) 1 FLUSH IV (22:59)
[2024-11-11] MEDS: HEPARIN 25000 UNITS/250 ML IV (23:17)
[2024-11-11 23:49] LABS: INR 1.01; PT 13.8 Sec (11.4-14.6)
--- NOTE | 2024-11-11 23:49 | HPS.HSE ---
Family Physician
-
Family Physician: Ingrid Chan, DO
Chief Complaint
-
SOB, Lightheadedness, CP
History of Present Illness
Patient is an 84y M with PMH significant for ASCVD, CKD III and bladder tumor who presents to ED complaining of SOB, lightheadedness and chest pain. Patient had a recent complicated hospitalization 10/17 - 10/30 secondary to NSTEMI. This stay
was complicated by development of gross hematuria / clots and patient underwent TURBT / TURP x 2 during that stay. Cardiac cath was done showing disease of the LAD and RCA; however, it was decided to proceed with medical therapy for now given his
bleeding issues and probable inability to tolerate DAPT.
Patient notes that he has been somewhat weak and SOB since his discharge. However, today he developed rather sudden shortness of breath, chest pain and lightheadedness after his afternoon walk.
He denies actual syncope / LOC. His family helped him into bed and his gave him a SL NTG - which did improve his chest pain. 911 was called and patient was transported to the ED for further evaluation and treatment.
At the time of my examination, patient states that he feels much improved from prior.
He continues to feel somewhat SOB - even at rest. He has no pain at present.
Patient does note recent tightness and pain in the calves - R > L.
No personal history of DVT / PE.
Medical History
Past Medical History
Past Medical History: Reports Other
Additional Past Medical History:
ASCVD
Hypertension
BPH
Urothelial Carcinoma / Bladder Tumor
CKD III
Past Surgical History: Reports Other
Additional Past Surgical History:
TURP x 2 (remote)
TURBT / TURP x 2 (10/21 and 10/28)
Social History
Tobacco: Former Smoker (Quit smoking in his 30s.)
Alcohol: Occasional
Drug: None
Personal:
Living: With Family
Family History
Family History: Not pertinent
Allergies / Home Medications
Allergies reflects when Allergies were last updated in [facility].
Home Medications with original date entered in [facility]
Allergy/Medication List:
Allergies
Allergy/AdvReac Type Severity Reaction Status Date / Time
ciprofloxacin Allergy Rash Verified 11/11/24 18:20
fluticasone Allergy Rash Verified 11/11/24 18:20
ibuprofen [From Advil] Allergy Swelling Verified 11/11/24 18:20
ofloxacin [From Floxin] Allergy Swelling Verified 11/11/24 18:20
Sulfa (Sulfonamide Allergy Rash Verified 11/11/24 18:20
Antibiotics)
sulfamethoxazole Allergy Rash Verified 11/11/24 18:20
[From Bactrim]
trimethoprim [From Bactrim] Allergy Rash Verified 11/11/24 18:20
Home Medications
cholecalciferol (vitamin D3) 25 mcg (1,000 unit) tablet (Vitamin D3) 25 mcg PO DAILY Supplement 10/17/24
dutasteride 0.5 mg capsule 0.5 mg PO DAILY Urinary Issue 10/17/24
nifedipine 30 mg tablet,extended release 24 hr 30 mg PO DAILY Blood Pressure 10/17/24
terazosin 5 mg capsule 5 mg PO DAILY Blood Pressure 10/17/24
therapeutic multivitamin 1 tab PO DAILY Supplement 10/17/24
vitamin E 268 mg (400 unit) capsule 268 mg PO DAILY Supplement 10/17/24
zinc sulfate 50 mg zinc (220 mg) tablet 50 mg PO DAILY Supplement 10/17/24
aspirin 81 mg chewable tablet 81 mg PO DAILY Heart disease/condition #30 tabs 10/26/24
atorvastatin 40 mg tablet 40 mg PO DAILY High cholesterol #30 tabs 10/26/24
metoprolol succinate 50 mg tablet,extended release 24 hr 50 mg PO DAILY Heart disease/condition #30 tabs 10/26/24
nitroglycerin 0.4 mg sublingual tablet 0.4 mg sublingual [id number] PRN chest pain #20 tabs 10/26/24
phenazopyridine 200 mg tablet 200 mg PO Q8 PRN Pain #20 tabs 10/30/24
Review of Systems
-
History Source: Patient
A 12 point ROS was completed and negative except as noted: Yes
Constitutional: Reports Fatigue; Denies Fever or Chills
EENT: Denies Sore Throat
Respiratory: Reports Trouble Breathing; Denies Cough or Hemoptysis
Cardiac: Reports Chest Pain; Denies Diaphoresis, Palpitations or Syncope
Abdomen/GI: Denies Abdominal Pain, Nausea, Vomiting or Diarrhea
: Denies Dysuria, Frequency, Flank Pain or Bleeding
Musculoskeletal: Reports Muscle Pain and Edema; Denies Joint Pain
Neurological: Reports Dizzy; Denies Headache
Psych: Denies Depression or Anxiety
Physical Exam
Vital Signs
Vital Signs
Temp Pulse Resp BP Pulse Ox
97.3 F 77 23 114/71 92
11/11/24 18:16 11/11/24 23:00 11/11/24 23:00 11/11/24 23:00 11/11/24 23:00
Physical Exam
General: Other (84y M in mild distress due to dyspnea.)
HEENT: Moist mucous membranes and PERRLA
Respiratory: Other (Decreased BS at bases - otherwise clear.)
Cardiac: S1/S2, Tachycardia and Murmur (II/ JUAN DAVID)
GI: Soft, Non Tender, Non Distended and Normal Bowel Sounds
Musculoskeletal: No Clubbing, No Cyanosis and Other (Trace - 1+ edema b/l LEs. Pos bilateral calf tenderness - R > L.)
Neuro: AO x 3
Laboratory Results
-
11/11/24 18:23
11/11/24 18:23
Laboratory Results
APTT Cancelled 11/11/24 22:37
Total Bilirubin Cancelled 11/11/24 18:23
AST Cancelled 01/01/25 18:23
ALT Cancelled 11/11/24 18:23
Alkaline Phosphatase Cancelled 11/11/24 18:23
Troponin I 0.140 ng/ml H* D 11/11/24 22:06
Impression/Plan
-
A/P: Patient is an 84y M with PMH significant for ASCVD, HTN and urothelial cancer who presents to ED complaining of sudden onset of chest pain, dyspnea and lighteadedness.
Pulmonary Embolism with Large Clot [place] / RV Strain
Acute Hypoxemic Respiratory Failure secondary to the above
- PERT alert called in the ED and after review with IR and Pulm/CC plan is for IR to evaluate for possible acute treatment.
- Continue IV heparin for now.
- Admit to ICU for further evaluation and treatment.
- Check LE dopplers in AM for completeness.
- Supportive care including O2 support, IVFs, pain control, etc.
- Follow for any new / worsening symptoms.
Urothelial Cancer
- Recent issues with significant bleeding during NSTEMI admission / while on IV heparin.
- s/p TURBT / TURP x 2 during that stay.
- Patient reports no issues with urination, bleeding, clots, etc since discharge.
- Monitor closely for any evidence of recurrent hematuria, urinary retention, etc.
- Bladder scan protocol and straight cath / Uribe with CBI if needed.
- Continue dutasteride / terazosin.
- Urology re-evaluation if any acute issues arise.
ASCVD
- NSTEMI during recent admission with peak troponin = 0.436.
- Troponin today 0.057 and then 0.140 - likely secondary to PE as noted above.
- Cath on 10/19 with prox / mid LAD and mid RCA stenoses - no angioplasty / stents at that time.
- Continue current CV med regimen.
- Monitor for any recurrent chest pain.
- Follow troponin to peak.
CKD III - IV
- Stable. Renal function is at / near recently noted baseline.
- Follow for any changes.
Normocytic Anemia
- At least in part due to recent blood loss / multiple surgeries / etc.
- Hgb stable compared to recent discharge - but not much improved.
- Check iron studies, B12, etc.
- Follow H&H and consider transfusion if needed (consent on chart).
- Monitor for any new blood loss as noted above.
Benign Hypertension
- Stable at present. Holding parameters for most BP meds.
- Hold nifedipine entirely for now.
- Adjust regimen as needed for BP control.
DVT Prophylaxis: On IV Heparin
Code Status: Full
[2024-11-12] VITALS: BP 106/70
[2024-11-12 00:31] VITALS: BP 128/70; BP_SYST 80
--- NOTE | 2024-11-12 01:59 | W.PN.ANESINT ---
Anesthesia Intubation Note
- Intubation Note
Intubation Note:
Diagnosis: cardiorespiratory arrest
Blade: glidescope
Tube Size: 8.0 HiLo
Depth: 23cm
Side Taped: center
Drugs Used: no drugs used
Grade View: grade 1 view
EtCO2 Present: ETCO2 color change present on CO2 detector
Atraumatic: atraumatic
Attempts: 2
Insertion Start and Stop Time: 144 start 148 end
SaO2 Pre: unknown
SaO2 Post: unknown
Glidescope Used: glidescope used
Other Airway Adjustments: none
Pre-Oxygenated: bag mask ventilated by respiratory therapist
Portable Chest X-Ray: unknown
RSI: no drugs needed
Suctioned: suctioned for copious amounts of blood in oropharynx and later in ETT as well
Bilateral Breath Sounds Confirmed: bilateral breath sounds confirmed, no sounds over abdomen
Vent Settings:
Settings per ___Attending Physician
Margi Hartman CRNA
--- NOTE | 2024-11-12 02:00 | W.PN.DEATH ---
Pronouncement of
-
Called to see patient to pronounce.
No spontaneous heart tones or respirations noted.
Patient not responsive to verbal stimuli.
Patient is pronounced .
Time of : 01:55
Date of : 11/12/24
Cause of : pulmonary artery rupture secondary to pulmonary embolism
Family Notified: Yes (family and son came to bedside and updated)
--- NOTE | 2024-11-12 02:15 | W.PN.UPDATE ---
Addendum entered and electronically signed by Alfredo Schofield MD 11/12/24 03:06:
I had a long discussion with patient's and son, all questions answered.
Original Note:
Update Note
Progress Note Update
PERT alert called. Submassive saddle embolus, very large embolus burden on both sides. Severe right heart strain, RV:LV ratio 2. Elevated troponin.
High risk situation given recent diagnosis of bladder cancer and hematuria. High risk of recurrent bleeding with anticoagulation, therefore decision was made to pursue suction embolectomy, which would lower the risk of bleeding since no lytics would
need to be administered.
Left main pulmonary arteriogram was performed, which showed large embolus burden, mostly lower lobe. PA pressure 73/17 mmHg, mean 39.
Embolectomy was initiated using Penumbra lightning catheter, and large amount of embolus was removed. Following left sided embolectomy, the patient began to complain of chest pain, and then developed severe hemoptysis. Code was called.
After hemoptysis developed, a repeat left pulmonary arteriogram was performed, which did not show extravasation of contrast. However, hemoptysis continued.
Resuscitation efforts were ultimately unsuccessful, and the patient was pronounced.
--- NOTE | 2024-11-12 02:21 | W.PN.UPDATE ---
Update Note
Progress Note Update
Code called @ 1:35 AM.
Patient in Interventional Radiology suite undergoing pulmonary artery embolectomy when he began to complain of chest pain and then had massive hemoptysis. Procedure was held and patient found to be pulseless.
CPR was initiated / ACLS protocols followed. At initiation of code, IR noted no target for embolization / therapy to achieve hemostasis.
Patient received multiple doses of epinephrine. Was in PEA for majority of code.
Had an episode of pulseless VT and received 1 shock.
He was intubated by Anesthesia during the code.
After 20 minutes of continuous CPR / ACLS patient had no evidence of ROSC. He had significant amount of blood loss evident from the mouth / airway at the onset of the code.
At 1:55 AM on this November, patient remained pulseless and unresponsive and was pronounced .
Family was contacted while the code was in progress and are en route to the hospital.
ICU [employer] called telecommunications switch technician / completed certificate.
--- NOTE | 2024-11-12 05:24 | PTCARENOTE ---
0228: Patient transported from IR to ICU, , status post code nine in IR. patient brought into room 3360 . Patient cleansed. Family at the bedside. Post mortem care provided. The patient has his left gold wedding band on his ring figure. Pt's
belonging labeled and sent with him.
--- NOTE | 2024-11-12 06:39 | W.DCSUMMARY ---
Discharge Summary
Discharge Data
Date of Admission: 11/11/24
Date of Discharge: 11/12/24
-
Pending Results: No
Hospital Course
Patient is an 84y M with PMH significant for ASCVD, HTN and urothelial cancer who presents to ED complaining of sudden onset of chest pain, dyspnea and lightheadedness. Evaluation in the ED revealed large volume / bilateral pulmonary emboli and
PERT alert was activated. After discussion with ED, Pulmonary / Supervisor [facility] Process and IR, it was recommended that the patient go for pulmonary artery embolectomy.
While in IR suite undergoing procedure, patient developed massive hemoptysis and suffered cardiac arrest.
Resuscitation efforts were unsuccessful and patient was pronounced at 1:55 AM on this November.
Case was reviewed with Vascular Surgery, CT Surgery and Supervisor Channel Process during resuscitation efforts. Unfortunately, resuscitation efforts were unsuccessful and as such there was no opportunity / role for any additional interventions.
Discharge Plan
-
Patient Disposition:
Date/Time
Date/Time: 11/12/24 01:55
Discharge Date and Time
Print Language: UPPER SORBIAN
== END 2024-11-12 01:55 | disposition expired | DRG 163 ==
LOC: ED 23:56
PROVIDERS: Emergency Medicine; Nurse Practitioner; Radiology Vascular & Interventional Radiology; ADMITTING PHYSICIAN Hospitalist; EMERGENCY PHYSICIAN Emergency Medicine; FAMILY PHYSICIAN Family Medicine
PROC: 02CR3ZZ Extirpation of Matter from Left Pulmonary Artery, Percutaneous Approach (ICD-10-PCS; 2024-11-12)
PROC: 5A2204Z Restoration of Cardiac Rhythm, Single (ICD-10-PCS; 2024-11-12)
PROC: 0BH18EZ Insertion of Endotracheal Airway into Trachea, Via Natural or Artificial Opening Endoscopic (ICD-10-PCS; 2024-11-12)
PROC: 5A12012 Performance of Cardiac Output, Single, Manual (ICD-10-PCS; 2024-11-12)
DX: I26.99 Other pulmonary embolism without acute cor pulmonale (principal); I21.4 Non-ST elevation (NSTEMI) myocardial infarction; J96.01 Acute respiratory failure with hypoxia; I97.711 Intraoperative cardiac arrest during other surgery; R04.2 Hemoptysis; I47.20 Ventricular tachycardia, unspecified; I12.9 Hypertensive chronic kidney disease with stage 1 through stage 4 chronic kidney disease, or unspecified chronic kidney disease; I25.10 Atherosclerotic heart disease of native coronary artery without angina pectoris; N18.30 Chronic kidney disease, stage 3 unspecified; C67.9 Malignant neoplasm of bladder, unspecified; C61 Malignant neoplasm of prostate; D64.9 Anemia, unspecified; E78.00 Pure hypercholesterolemia, unspecified; R31.0 Gross hematuria; Y83.8 Other surgical procedures as the cause of abnormal reaction of the patient, or of later complication, without mention of misadventure at the time of the procedure; Z87.891 Personal history of nicotine dependence; Z11.52 Encounter for screening for COVID-19
CPT/HCPCS: 36015; 37184; 71045; 71275; 75743; 76937; 80048; 84484; 85025; 85379; 85610; 85730; 87502; 87811; 93005; 96365; 99152; 99153; 99291; C1757; C1769; Q9967